=== PATIENT | female | born 1965 | race Caucasian/White ===

== ENCOUNTER → 2016-07-22 | Outpatient (CLI) | payer MEDICAID | LOC: RAD 07:53 | PROVIDERS: ATTEND Internal Medicine | DX: C56.2 Malignant neoplasm of left ovary (principal); C78.7 Secondary malignant neoplasm of liver and intrahepatic bile duct | CPT/HCPCS: 71260; 74177 ==

== ENCOUNTER 2016-08-06 08:50 | Day surgery (SDC) | payer MEDICAID ==
[~2016-08-06 08:50] MED LIST: BACITRACIN INJ 50,000 UNIT VIAL MC PRN
[2016-08-06] MEDS ORDERED: BACITRACIN INJ 50,000 UNIT VIAL MC ONE (09:00)
[2016-08-06] MEDS ORDERED: CEFAZOLIN SODIUM 1 GM in DEXTROSE 5%-WATER 50 ML IV PRN (09:04)
[2016-08-06] MEDS ORDERED: DEXTROSE 5%-1/2 NORMAL SALINE 1,000 ML IV PRN (09:05)
[2016-08-06 09:26] LABS: ABSOLUTE BASOPHILS # (AUTO) 0.1 10^3/uL (0.0-0.2); ABSOLUTE EOSINOPHILS # (AUTO) 0.1 10^3/uL (0.0-0.6); ABSOLUTE MONOCYTES (AUTO) 0.7 10^3/uL (0.1-1.4); ABSOLUTE NEUT (AUTO) 8.6 10^3/uL (1.7-8.2); BASOPHILS % (AUTO) 0.8 % (0-2); EOSINOPHILS % (AUTO) 1.3 % (0-6); HEMATOCRIT 36.5 % (36.0-47.0); HEMOGLOBIN 12.2 g/dL (12.0-15.5); HGB HCT DIFFERENCE 0.1; LYMPHOCYTES % (AUTO) 9.7 % (13-45); MEAN CORPUSCULAR HEMOGLOBIN 29.5 pg (27.0-33.4); MEAN CORPUSCULAR HGB CONC 33.4 g/dL (32.0-36.0); MEAN CORPUSCULAR VOLUME 88 fl (80-97); MONOCYTES % (AUTO) 6.9 % (3-13); RED BLOOD COUNT 4.13 10^6/uL (3.72-5.28); RED CELL DISTRIBUTION WIDTH 14.3 % (11.5-14.0); SEGMENTED NEUTROPHILS % (AUTO) 81.3 % (42-78); WHITE BLOOD COUNT 10.6 10^3/uL (4.0-10.5)
[2016-08-06] MEDS ORDERED: LIDOCAINE 0.5% INJ-PF (5 MG/ML) 50 ML SDV ONE (09:56)
[2016-08-06] MEDS ORDERED: FENTANYL CITRATE INJ/PF 100 MCG/2 ML AMPUL ONE (10:00)
[2016-08-06] MEDS ORDERED: MIDAZOLAM 2 MG/2 ML INJ ONE (10:00)
[2016-08-06] MEDS ORDERED: CLINDAMYCIN 300 MG/D5W RTU 300 MG/50 ML RTUPB IV ONE (10:30)
--- NOTE | 2016-08-06 11:16 | PDOC DISCHARGE SUMMARY ---
Discharge Summary (SDC) - Discharge Final Diagnosis: Ovarian cancer Date of Surgery: 08/06/16 Discharge Date: 08/06/16 Condition: Good Treatment or Instructions: #1 activities within moderation encouraged. #2 follow up in my office by appointment in about 1 week. Call for appointment. #3 the wounds covered clean and dry until office visit. #4 hold off on school/work until evaluation in office. #5 may shower in 48 hours, keep operated area as dry as possible. #6 discharge from ambulatory when ASU criteria met. #7 medications per medication reconciliation sheet. #8 Percocet by prescription.. Also may have one Percocet up to every 2 hours when necessary for pain greater than 4 out of 10 while in the ASU Prescriptions: Oxycodone HCl/Acetaminophen [Percocet 5-325 mg Tablet] 1 tab PO ASDIR PRN #15 tab PRN Reason: Discharge Diet: As Tolerated Respiratory Treatments at Home: Deep Breathing/Coughing Discharge Activity: Activity As Tolerated Report the Following to Your Physician Immediately: Unusual Bleeding
--- NOTE | 2016-08-06 11:19 | Operative Report ---
Operative Report DATE OF SURGERY: 08/06/16 PREOPERATIVE DIAGNOSIS: Ovarian cancer POSTOPERATIVE DIAGNOSIS: Ovarian cancer OPERATION: #1 ultrasound evaluation of the right internal jugular vein. #2 insertion of single-lumen Port-A-Cath via real-time access in the right internal jugular vein. #3 angiogram and interpretation. SURGEON: JESSA STODDARD AUTOMOTIVE PARTS MANAGER: none ANESTHESIA: Moderate Sedation TISSUE REMOVED OR ALTERED: Not applicable. COMPLICATIONS: None ESTIMATED BLOOD LOSS: 5 mL. INTRAOPERATIVE FINDINGS: Of a satisfactory right internal jugular vein, about 1.5 cm in diameter. Safe access obtained. The position of the catheter with the tip just in the upper right atrium. Easy egress of blood and ingress of heparinized solution. Smooth flow of contrast through the right atrium, ventricle and pulmonary outflow tract. PROCEDURE: After obtaining informed consent, the patient was taken to the [facility] and positioned supine. The [right] neck and chest were prepared with chlorhexidine and draped out with sterile linen. After the " universal timeout", in which it was verified that the patient continued to receive antibiotic, the procedure commenced. A steriley sheathed ultrasound probe was used to evaluate the [ right] internal jugular vein. Local anesthesia was infiltrated adjacent to the probe. Access into the [right] internal jugular vein was obtained using a micropuncture needle, followed by micropuncture wire and then a micropuncture catheter. This was followed by introduction of a 0.035 guidewire the tip of which was placed down into the inferior vena cava . The port sites was marked , locally anesthetized and incision made. Dissection now proceeded to the deep subcutaneous subcutaneous tissues so that a pocket for the port was made. Meticulous hemostasis was secured and the catheter was tunneled between the 2 incisions. Proximally, the catheter was now positioned using a peel-away sheath. Distally the catheter was tailored to an appropriate length and then mated to the port using the contained fixating device. The port was now placed in the pocket and the catheter optimally positioned. The port was accessed with a De La O needle and an angiogram done under digital subtraction. The findings as dictated. With adequate and satisfactory positioning, both lumens of the chamber were irrigated with heparinized solution. The wounds were now closed using interrupted 3-0 PDS to the subcutaneous tissues and a continuous subcuticular suture of 4-0 Monocryl to the skin. These are reinforced with Steri-Strips over benzoin and then dressings applied. Time: 0.3 Minute. Dose: 14 m Gy Contrast: 5 mls. Isovue 300. Copies of the dictated operative report for Dr. Jessa Hall MD.
[2016-08-06 12:42] VITALS: BP 118/60
--- NOTE | 2016-08-06 23:57 | EKG REPORT ---
SEVERITY:- NORMAL ECG - SINUS RHYTHM : Confirmed by: Pankaj Redmond 06-Aug-2016 23:56:50
== END 2016-08-06 13:05 | disposition home or self-care (01) ==
LOC: CCL 08:50
PROVIDERS: ATTEND Surgery
PROC: 05HM33Z Insertion of Infusion Device into Right Internal Jugular Vein, Percutaneous Approach (ICD-10-PCS; principal; 2016-08-06)
DX: C56.2 Malignant neoplasm of left ovary (principal); F17.210 Nicotine dependence, cigarettes, uncomplicated; Z88.0 Allergy status to penicillin; Z88.5 Allergy status to narcotic agent
CPT/HCPCS: 36415; 85025; 36561; 76937; 77001; 71010; 93005; 93010; Q9967; J2250; J3490 ×3; J3010; J1644

== ENCOUNTER → 2016-10-08 | Outpatient (CLI) | payer MEDICAID | LOC: RAD 07:30 | PROVIDERS: ATTEND Internal Medicine | DX: C56.2 Malignant neoplasm of left ovary (principal) | CPT/HCPCS: 71260; 74177; 82565 ==

== ENCOUNTER → 2016-12-09 | Outpatient (CLI) | payer MEDICAID ==
--- NOTE | 2016-12-09 10:01 | RADIOLOGY REPORT (SQ) ---
EXAM DESCRIPTION: CT CHEST WITH COMPLETED DATE/TIME: 12/09/2016 8:35 am REASON FOR STUDY: OVARIAN CA (C56.2) C56.2 MALIGNANT NEOPLASM OF LEFT OVARY COMPARISON: 10/08/2016 and 07/22/2016. TECHNIQUE: CT scan of the chest performed using helical scanning technique with dynamic intravenous contrast injection. Images reviewed with lung, soft tissue and bone windows. Reconstructed coronal and sagittal MPR images reviewed. All images stored on PACS. All CT scanners at this facility use dose modulation, iterative reconstruction, and/or weight based d osing when appropriate to reduce radiation dose to as low as reasonably achievable (ALARA). [facility]: Dose Right [facility]: CareDose [facility]: Dose Right [facility]: Teradose 4D [facility]: Snapsheet CONTRAST TYPE AND DOSE: 72 Isovue 370- low osmolar. RENAL FUNCTION: Creatinine 0.8. RADIATION DOSE: . LIMITATIONS: None. FINDINGS: LUNGS AND PLEURA: No opacities, nodules, masses. No pneumothorax. No effusions. HILAR AND MEDIASTINAL STRUCTURES: Continued improvement in the mediastinal lymph nodes. Prevascular lymph node currently measures 4 x 10 mm with prior measurements of 5 x 15 mm. Paratracheal lymph nod e currently measures 9 mm with prior measurement of 15 mm. Subcarinal lymph node currently measures 7 x 12 mm with prior measurements of 9 x 22 mm. Previously seen the anterior epicardial lymph node n o longer present. HEART AND VASCULAR STRUCTURES: No aneurysm or dissection. No central pulmonary emboli. No pericardi al effusion. HARDWARE: Vascular access port. UPPER ABDOMEN: No significant findings. Limited exam. THYROID AND OTHER SOFT TISSUES: No masses. No adenopathy. BONES: No significant finding. OTHER: No other significant finding. IMPRESSION: IMPROVED APPEARANCE OF THE CHEST WITH DECREASE IN THE MEDIASTINAL LYMPH NODES. TECHNICAL DOCUMENTATION: JOB ID: [id number] Quality ID # [id number]: Final reports with documentation of one or more dose reduction techniques (e.g., Au tomated exposure control, adjustment of the mA and/or kV according to patient size, use of iterative reconstruction technique) 2010 [employer]- All Rights Reserved
--- NOTE | 2016-12-09 10:16 | RADIOLOGY REPORT (SQ) ---
EXAM DESCRIPTION: CT ABD/PELVIS WITH IV ONLY COMPLETED DATE/TIME: 12/09/2016 8:35 am REASON FOR STUDY: OVARIAN CA (C56.2) C56.2 MALIGNANT NEOPLASM OF LEFT OVARY COMPARISON: 10/08/2016 and 07/22/2016. TECHNIQUE: CT scan of the abdomen and pelvis performed using helical scanning technique with dynamic intravenous contrast injection. No oral contrast. Images reviewed with lung, soft tissue, and bone windows. Reconstructed coronal and sagittal MPR images reviewed. Delayed images for evaluation of the urinary system also acquired. All images stored on PACS. All CT scanners at this facility use dose modulation, iterative reconstruction, and/or weight based d osing when appropriate to reduce radiation dose to as low as reasonably achievable (ALARA). [facility]: Dose Right [facility]: CareDose [facility]: Dose Right [facility]: Teradose 4D [facility]: [employer] CONTRAST TYPE AND DOSE: contrast/concentration: Isovue 370.00 mg/ml; Total Contrast Delivered: 72.0 ml; Total Saline Delivered: 66.1 ml 72 Isovue 370- low osmolar. RENAL FUNCTION: Creatinine 0.8. RADIATION DOSE: Up-to-date CT equipment and radiation dose reduction techniques were employed. CTDIv ol: 4.8 - 10.2 mGy. DLP: 931 mGy-cm.. LIMITATIONS: None. FINDINGS: LOWER CHEST: No significant findings. No nodules or infiltrates. LIVER: Normal size. Stable cyst in the left lobe. Ill-defined lesions in the right lobe generally u nchanged. Current measurements are 9 mm and 1.8 cm, essentially unchanged. No dilated ducts. SPLEEN: Normal size. No focal lesions. PANCREAS: No masses. No significant calcifications. No adjacent inflammation or peripancreatic fluid collections. Pancreatic duct not dilated. GALLBLADDER: No identified stones by CT criteria. No inflammatory changes to suggest cholecystitis. ADRENAL GLANDS: No significant masses or asymmetry. RIGHT KIDNEY AND URETER: No solid masses. No significant calcifications. No hydronephrosis or hyd roureter. LEFT KIDNEY AND URETER: No solid masses. No significant calcifications. No hydronephrosis or hydr oureter. AORTA AND VESSELS: No aneurysm. No dissection. Renal arteries, SMA, celiac without stenosis. RETROPERITONEUM: No retroperitoneal adenopathy, hemorrhage or masses. BOWEL AND PERITONEAL CAVITY: No masses or inflammatory changes. Minimal subhepatic fluid collection currently smaller. No free fluid or peritoneal masses. APPENDIX: Normal. PELVIS: No mass or free fluid. Normal bladder. ABDOMINAL WALL: No masses. Stable umbilical hernia containing a loop of bowel. BONES: No significant or acute findings. OTHER: No other significant finding. IMPRESSION: 1. STABLE HEPATIC LESIONS. NO PROGRESSION AND NO NEW LESIONS. MINIMAL SUBHEPATIC FLUID COLLECTION I S CURRENTLY SMALLER. 2. UMBILICAL HERNIA WITH A LOOP OF BOWEL, UNCHANGED. NO OBSTRUCTIVE FINDINGS. 3. NO OTHER SIGNIFICANT OR ACUTE FINDING IN THE ABDOMEN OR PELVIS ON CT SCAN WITH IV CONTRAST. TECHNICAL DOCUMENTATION: JOB ID: [id number] Quality ID # 436: Final reports with documentation of one or more dose reduction techniques (e.g., Au tomated exposure control, adjustment of the mA and/or kV according to patient size, use of iterative reconstruction technique) 2010 [employer]- All Rights Reserved
== END ==
LOC: RAD 07:52
PROVIDERS: ATTEND Internal Medicine
DX: C56.2 Malignant neoplasm of left ovary (principal); K76.9 Liver disease, unspecified; K42.9 Umbilical hernia without obstruction or gangrene
CPT/HCPCS: 71260; 74177; 82565

== ENCOUNTER → 2017-03-03 | Outpatient (CLI) | payer MEDICAID ==
--- NOTE | 2017-03-03 11:20 | RADIOLOGY REPORT (SQ) ---
EXAM DESCRIPTION: CT CHEST WITH COMPLETED DATE/TIME: 03/03/2017 10:14 am REASON FOR STUDY: OVARIAN CA (C56.2) C56.2 MALIGNANT NEOPLASM OF LEFT OVARY COMPARISON: None. TECHNIQUE: CT scan of the chest performed using helical scanning technique with dynamic intravenous contrast injection. Images reviewed with lung, soft tissue and bone windows. Reconstructed coronal and sagittal MPR images reviewed. All images stored on PACS. All CT scanners at this facility use dose modulation, iterative reconstruction, and/or weight based d osing when appropriate to reduce radiation dose to as low as reasonably achievable (ALARA). [facility]: Dose Right [facility]: CareDose [facility]: Dose Right [facility]: Teradose 4D [facility]: KLab CONTRAST TYPE AND DOSE: contrast/concentration: Isovue 370.00 mg/ml; Total Contrast Delivered: 70.0 ml; Total Saline Delivered: 66.0 ml RENAL FUNCTION: BUN 12, creatinine 0.7 RADIATION DOSE: . LIMITATIONS: None. FINDINGS: LUNGS AND PLEURA: No consolidation or effusions. There are 2 small subpleural nodules on the right. These are measured at 3.1 an 4 mm respectively. These are best demonstrated on image 53 /125 and image 27/125. There is a 4.4 mm parenchymal nodule on image 60/125. These are new from dhaval or study. There is a single parenchymal nodule in the left lower lobe. This is new as well and sundar ures 5.6 mm in diameter. This is best demonstrated on image 61/125. These are nonspecific but in th is clinical metastatic disease cannot be excluded. HILAR AND MEDIASTINAL STRUCTURES: Small prevascular and pre tracheal lymph node is again noted but un changed. These are not pathologic based on size criteria. HEART AND VASCULAR STRUCTURES: No aneurysm or dissection. No central pulmonary emboli. No pericardi al effusion. HARDWARE: None in the chest. UPPER ABDOMEN: No significant findings. Limited exam. THYROID AND OTHER SOFT TISSUES: No masses. No adenopathy. BONES: No significant finding. OTHER: No other significant finding. IMPRESSION: Small bilateral parenchymal nodules as described. Metastatic disease cannot be excluded . The largest nodules on the left and measures 5.6 mm in diameter. TECHNICAL DOCUMENTATION: JOB ID: [id number] Quality ID # 436: Final reports with documentation of one or more dose reduction techniques (e.g., Au tomated exposure control, adjustment of the mA and/or kV according to patient size, use of iterative reconstruction technique) 2010 [employer]- All Rights Reserved
--- NOTE | 2017-03-03 11:26 | RADIOLOGY REPORT (SQ) ---
EXAM DESCRIPTION: CT ABD/PELVIS WITH IV ORAL COMPLETED DATE/TIME: 03/03/2017 10:14 am REASON FOR STUDY: OVARIAN CA (C56.2) C56.2 MALIGNANT NEOPLASM OF LEFT OVARY COMPARISON: 12/09/2016 TECHNIQUE: CT scan of the abdomen and pelvis performed using helical scanning technique with dynamic intravenous contrast injection. No oral contrast. Images reviewed with lung, soft tissue, and bone windows. Reconstructed coronal and sagittal MPR images reviewed. Delayed images for evaluation of the urinary system also acquired. All images stored on PACS. All CT scanners at this facility use dose modulation, iterative reconstruction, and/or weight based d osing when appropriate to reduce radiation dose to as low as reasonably achievable (ALARA). [facility]: Dose Right [facility]: CareDose [facility]: Dose Right [facility]: Teradose 4D [facility]: [employer] CONTRAST TYPE AND DOSE: 70 mL Isovue 370- low osmolar. RENAL FUNCTION: BUN 12, creatinine 0.7 RADIATION DOSE: Up-to-date CT equipment and radiation dose reduction techniques were employed. CTDIv ol: 5.1 - 5.3 mGy. DLP: 723 mGy-cm.. LIMITATIONS: None. FINDINGS: LOWER CHEST: Please see chest CT report for further discussion. LIVER: There is a 5.6 cm lesion in the right lower liver consistent with metastatic disease. This is increased in size. Smaller hypoattenuating nodules are unchanged. A small amount of subhepatic flu id is again noted. SPLEEN: Normal size. No focal lesions. PANCREAS: No masses. No significant calcifications. No adjacent inflammation or peripancreatic fluid collections. Pancreatic duct not dilated. GALLBLADDER: No identified stones by CT criteria. No inflammatory changes to suggest cholecystitis. ADRENAL GLANDS: No significant masses or asymmetry. RIGHT KIDNEY AND URETER: No solid masses. No significant calcifications. No hydronephrosis or hyd roureter. LEFT KIDNEY AND URETER: No solid masses. No significant calcifications. No hydronephrosis or hydr oureter. AORTA AND VESSELS: No aneurysm. No dissection. Renal arteries, SMA, celiac without stenosis. RETROPERITONEUM: No retroperitoneal adenopathy, hemorrhage or masses. BOWEL AND PERITONEAL CAVITY: No masses or inflammatory changes. No free fluid or peritoneal masses. APPENDIX: Normal. PELVIS: No mass. No free fluid. Normal bladder. ABDOMINAL WALL: There is an umbilical hernia containing small bowel. No obstruction. BONES: Stable in appearance. No obvious metastatic disease. OTHER: No other significant finding. IMPRESSION: The hepatic lesion in the right lobe of the liver has increased in size and now measures 5.6 cm. Small amount of subhepatic fluid remains. No other significant interval change. TECHNICAL DOCUMENTATION: JOB ID: [id number] Quality ID # 436: Final reports with documentation of one or more dose reduction techniques (e.g., Au tomated exposure control, adjustment of the mA and/or kV according to patient size, use of iterative reconstruction technique) 2010 [employer]- All Rights Reserved
== END ==
LOC: RAD 09:50
PROVIDERS: ATTEND Internal Medicine
DX: C56.2 Malignant neoplasm of left ovary (principal)
CPT/HCPCS: 71260; 74177

== ENCOUNTER → 2017-07-16 | Outpatient (CLI) | payer MEDICAID ==
--- NOTE | 2017-07-16 13:50 | RADIOLOGY REPORT (SQ) ---
EXAM DESCRIPTION: CT CHEST WITH; CT ABD/PELVIS WITH IV ORAL COMPLETED DATE/TIME: 07/16/2017 10:08 am REASON FOR STUDY: OVARIAN CA (C56.2) C56.2 MALIGNANT NEOPLASM OF LEFT OVARY COMPARISON: CT CHEST ABDOMEN PELVIS 03/03/2017, 12/09/2016, 10/08/2016, 07/22/2016 CONTRAST TYPE AND DOSE: contrast/concentration: Isovue 370.00 mg/ml; Total Contrast Delivered: 69.0 ml; Total Saline Delivered: 65.0 ml RENAL FUNCTION: Creatinine 0.9 TECHNIQUE: CT scan of the chest performed using helical scanning technique with dynamic intravenous contrast injection. Images reviewed with lung, soft tissue and bone windows. Reconstructed coronal a nd sagittal MPR images reviewed. All images stored on PACS. CT scan of the abdomen and pelvis performed with intravenous and without oral contrastusing helical s lucas technique with dynamic intravenous contrast injection. Images reviewed with lung, soft tissu e and bone windows. Reconstructed coronal and sagittal MPR images reviewed. Delayed images for eval uation of the urinary system also acquired and evaluated. All images stored on PACS. All CT scanners at this facility use dose modulation, iterative reconstruction, and/or weight based d osing when appropriate to reduce radiation dose to as low as reasonably achievable (ALARA). [facility]: Dose Right [facility]: CareDose [facility]: Dose Right [facility]: Teradose 4D [facility]: [employer] RADIATION DOSE: CT Rad equipment meets quality standard of care and radiation dose reduction techniq ues were employed. CTDIvol: 4.6 - 5.7 mGy. DLP: 767 mGy-cm. . LIMITATIONS: None. FINDINGS: CHEST: LUNGS AND PLEURA: A 2.1 x 1.3 cm nodule is present in the left posterior costophrenic sulcus. There is trace left pleural effusion, new compared to previous exams. Tiny noncalcified granulomas are seen in the subpleural surface right upper and lower lobe unchanged. Calcified granuloma left lower lobe unchanged. No right pleural effusion. No right or left pneumo thorax HILAR AND MEDIASTINAL STRUCTURES: No identified masses or abnormal nodes. HEART AND VASCULAR STRUCTURES: No aneurysm or dissection. No central pulmonary emboli. No pericardi al effusion. HARDWARE: Right upper extremity permanent central line tip in the superior vena cava THYROID AND OTHER SOFT TISSUES: No masses. No adenopathy. BONES: No significant finding. OTHER: No other significant finding. ABDOMEN AND PELVIS: LIVER: A 15 x 10 cm metastatic lesion is present in the posterior right lobe liver (was 5.[address] diameter on 03/03/2017). Multiple other new smaller liver lesions are present scattered throughout the parenchymal worrisome for metastatic disease. Stable 12 mm hepatic cyst left lobe liver image 2 9. SPLEEN: Normal size. No focal lesions. PANCREAS: No masses. No significant calcifications. No adjacent inflammation or peripancreatic fluid collections. Pancreatic duct not dilated. GALLBLADDER: Contracted, with gallstones. ADRENAL GLANDS: No significant masses or asymmetry. RIGHT KIDNEY AND URETER: No solid masses. No significant calcification. No hydronephrosis or hydroure ter. LEFT KIDNEY AND URETER: No solid masses. No significant calcification. No hydronephrosis or hydrouret er. AORTA AND VESSELS: No aneurysm. No dissection. Renal arteries, SMA, celiac without stenosis. RETROPERITONEUM: No retroperitoneal adenopathy, hemorrhage or masses. BOWEL AND PERITONEAL CAVITY: Interval development of a moderate amount of ascites throughout the abdo men and pelvis. No CT evidence of bowel obstruction. APPENDIX: Normal. ABDOMINAL WALL: No masses. No hernias. BONES: No significant or acute findings. PELVIS: Post hysterectomy. Surgical clips at the vaginal cuff. Large amount of free pelvic fluid. Surgical clips from old lymph node dissection. No pelvic adenopathy IMPRESSION: New nodule in the left posterior costophrenic sulcus with trace pleural effusion worriso me for malignant involvement Increase in size and number of liver lesions Increase in ascites, moderate ascites is now present in the abdomen and pelvis TECHNICAL DOCUMENTATION: JOB ID: [id number] Quality ID # 436: Final reports with documentation of one or more dose reduction techniques (e.g., Au tomated exposure control, adjustment of the mA and/or kV according to patient size, use of iterative reconstruction technique) 2010 [employer]- All Rights Reserved
== END ==
LOC: RAD 09:23
PROVIDERS: ATTEND Internal Medicine
DX: C56.2 Malignant neoplasm of left ovary (principal)
CPT/HCPCS: 71260; 74177

== ENCOUNTER 2017-07-18 17:35 | Inpatient (IN) | payer MEDICAID ==
--- NOTE | 2017-07-18 18:21 | ER Document Report ---
ED Medical Screen (RME) - General Chief Complaint: Abdominal Swelling Stated Complaint: SWELLING IN STOMACH Time Seen by Provider: 07/18/17 18:15 Notes: 51-year-old female patient with ovarian cancer with liver metastases. On chemo. CT scan done 2 days ago showed new metastases to the liver with moderate ascites. She reports the swelling is even worse today than 2 days ago and is making it difficult to get up and down and eat. I have greeted and performed a rapid initial assessment of this patient. A comprehensive ED assessment and evaluation of the patient, analysis of test results and completion of the medical decision making process will be conducted by additional ED providers. TRAVEL OUTSIDE OF THE [place] IN LAST 30 DAYS: No - Related Data Allergies/Adverse Reactions: morphine Adverse Reaction (Verified 07/18/17 17:36) Dizziness Penicillins Adverse Reaction (Verified 07/18/17 17:36) Edema Past Medical History - Social History Chew tobacco use (# tins/day): No Frequency of alcohol use: None Drug Abuse: None - Past Medical History Cardiac Medical History: Denies: Hx Coronary Artery Disease, Hx Heart Attack, Hx Hypertension Pulmonary Medical History: Denies: Hx Asthma, Hx Bronchitis, Hx COPD, Hx Pneumonia Neurological Medical History: Denies: Hx Cerebrovascular Accident, Hx Seizures Renal/ Medical History: Denies: Hx Peritoneal Dialysis Musculoskeltal Medical History: Reports Hx Arthritis - BILAT KNEES Past Surgical History: Reports: Hx Section - 4, Hx Hysterectomy, Hx Orthopedic Surgery - R knee - Immunizations Hx Diphtheria, Pertussis, Tetanus Vaccination: Yes Physical Exam - Vital signs Vitals: Temp Pulse BP Pulse Ox 98.6 F 98 135/91 H 99 07/18/17 17:56 07/18/17 17:56 07/18/17 17:56 07/18/17 17:56 Course - Vital Signs Vital signs: Temp Pulse Resp BP Pulse Ox 98.6 F 98 18 135/91 H 99 07/18/17 17:56 07/18/17 17:56 07/18/17 18:03 07/18/17 17:56 07/18/17 17:56
[2017-07-18 18:51] LABS: ABSOLUTE BASOPHILS # (AUTO) 0.1 10^3/uL (0.0-0.2); ABSOLUTE EOSINOPHILS # (AUTO) 0.1 10^3/uL (0.0-0.6); ABSOLUTE LYMPHOCYTES (AUTO) 1.4 10^3/uL (0.5-4.7); ABSOLUTE NEUT (AUTO) 7.1 10^3/uL (1.7-8.2); BASOPHILS % (AUTO) 1.1 % (0-2); EOSINOPHILS % (AUTO) 0.7 % (0-6); HEMATOCRIT 39.4 % (36.0-47.0); HEMOGLOBIN 13.5 g/dL (12.0-15.5); LYMPHOCYTES % (AUTO) 14.5 % (13-45); MEAN CORPUSCULAR HEMOGLOBIN 30.4 pg (27.0-33.4); MEAN CORPUSCULAR HGB CONC 34.2 g/dL (32.0-36.0); MEAN CORPUSCULAR VOLUME 89 fl (80-97); MONOCYTES % (AUTO) 10.1 % (3-13); PLATELET COUNT 216 10^3/uL (150-450); RED BLOOD COUNT 4.43 10^6/uL (3.72-5.28); RED CELL DISTRIBUTION WIDTH 17.4 % (11.5-14.0); SEGMENTED NEUTROPHILS % (AUTO) 73.6 % (42-78); TOTAL CELLS COUNTED % (AUTO) 100 %; WHITE BLOOD COUNT 9.6 10^3/uL (4.0-10.5)
[2017-07-18 18:52] LABS: APPEARANCE,URINE SLIGHTLY-CLOUDY; BILIRUBIN,URINE NEGATIVE (NEGATIVE); COLOR,URINE YELLOW; GLUCOSE, URINE NEGATIVE (NEGATIVE); KETONES,URINE NEGATIVE (NEGATIVE); LEUKOCYTE ESTERASE,URINE MODERATE (NEGATIVE); NITRITE,URINE NEGATIVE (NEGATIVE); PROTEIN,URINE 30 mg/dL (NEGATIVE); URINE SPECIFIC GRAVITY 1.019; UROBILINOGEN,URINE NEGATIVE mg/dL (<2.0)
[2017-07-18 19:07] LABS: INTERNATIONAL RATION (INR) 0.88; PROTHROMBIN TIME 12.6 SEC (11.4-15.4)
[2017-07-18 19:13] LABS: ALANINE AMINOTRANSFERASE 38 U/L (9-52); ALBUMIN 3.2 g/dL (3.5-5.0); ALKALINE PHOSPHATASE 315 U/L (38-126); ANION GAP 11 (5-19); ASPARTATE AMINO TRANSFERASE 88 U/L (14-36); BILIRUBIN,DIRECT 0.4 mg/dL (0.0-0.4); BILIRUBIN,TOTAL 0.4 mg/dL (0.2-1.3); BLOOD UREA NITROGEN 18 mg/dL (7-20); CALCIUM 8.9 mg/dL (8.4-10.2); CARBON DIOXIDE 24 mmol/L (22-30); CHLORIDE 105 mmol/L (98-107); GLUCOSE 100 mg/dL (75-110); POTASSIUM 4.2 mmol/L (3.6-5.0); SODIUM 139.5 mmol/L (137-145); TOTAL PROTEIN 6.2 g/dL (6.3-8.2)
[2017-07-18] MEDS ORDERED: HYDROMORPHONE HCL 2 MG TABLET PO ONE (19:45)
--- NOTE | 2017-07-18 19:45 | ER Document Report ---
ED GI/ - General Chief Complaint: Abdominal Swelling Stated Complaint: SWELLING IN STOMACH Time Seen by Provider: 07/18/17 18:15 Mode of Arrival: Ambulatory Information source: Patient Notes: Patient presents complaining of right upper quadrant abdominal pain for the past 2 days. Patient denies any nausea vomiting or diarrhea. Patient denies any fever or cough. Patient does have a history of ovarian cancer with liver metastasis. Patient complains of abdominal distention for the past few weeks but states that it has increased recently and that it is causing her to have a decrease in her appetite. Patient states she has had been having normal bowel movements TRAVEL OUTSIDE OF THE [place] IN LAST 30 DAYS: No - HPI Patient complains to provider of: Abdominal pain. No: Diarrhea, Vomiting Onset: Other - Several weeks, worse 2 days Timing/Duration: Worse Quality of pain: Sharp Pain Level: 3 Location: RUQ Vaginal bleeding (Compared to normal period): None Associated symptoms: Loss of appetite. denies: Constipation, Diarrhea, Dysuria , Fever, Nausea, Urinary hesitancy, Urinary frequency, Urinary retention, Vaginal discharge, Vomiting Exacerbated by: Denies Relieved by: Denies Similar symptoms previously: No - Related Data Allergies/Adverse Reactions: morphine Adverse Reaction (Verified 07/18/17 17:36) Dizziness Penicillins Adverse Reaction (Verified 07/18/17 17:36) Edema Past Medical History - General Information source: Patient - Social History Smoking Status: Former Smoker Chew tobacco use (# tins/day): No Frequency of alcohol use: None Drug Abuse: None Occupation: None Family History: Reviewed & Not Pertinent Patient has suicidal ideation: No Patient has homicidal ideation: No - Past Medical History Cardiac Medical History: Denies: Hx Coronary Artery Disease, Hx Heart Attack, Hx Hypertension Pulmonary Medical History: Denies: Hx Asthma, Hx Bronchitis, Hx COPD, Hx Pneumonia Neurological Medical History: Denies: Hx Cerebrovascular Accident, Hx Seizures Renal/ Medical History: Denies: Hx Peritoneal Dialysis Malignancy Medical History: Reports: Hx Ovarian Cancer Musculoskeltal Medical History: Reports Hx Arthritis - BILAT KNEES Past Surgical History: Reports: Hx Section - 4, Hx Hysterectomy, Hx Orthopedic Surgery - R knee - Immunizations Hx Diphtheria, Pertussis, Tetanus Vaccination: Yes Review of Systems - Review of Systems Constitutional: No symptoms reported. denies: Fever, Recent illness EENT: No symptoms reported Cardiovascular: No symptoms reported. denies: Chest pain Respiratory: No symptoms reported. denies: Cough, Short of breath Gastrointestinal: Abdominal pain, Poor appetite. denies: Diarrhea, Nausea, Vomiting Genitourinary: No symptoms reported. denies: Dysuria, Flank pain Female Genitourinary: No symptoms reported Musculoskeletal: No symptoms reported. denies: Back pain Skin: No symptoms reported Hematologic/Lymphatic: No symptoms reported Neurological/Psychological: No symptoms reported Physical Exam - Vital signs Vitals: Temp Pulse BP Pulse Ox 98.6 F 98 135/91 H 99 07/18/17 17:56 07/18/17 17:56 07/18/17 17:56 07/18/17 17:56 - General General appearance: Appears well, Alert In distress: None - HEENT Head: Normocephalic, Atraumatic Eyes: Normal Conjunctiva: Normal Nasal: Normal Mouth/Lips: Normal Mucous membranes: Normal Neck: Normal - Respiratory Respiratory status: No respiratory distress Chest status: Nontender Breath sounds: Normal. No: Rales, Rhonchi, Stridor, Wheezing Chest palpation: Normal - Cardiovascular Rhythm: Regular Heart sounds: S1 appreciated, S2 appreciated Murmur: No - Abdominal Distension: Distended Bowel sounds: Normal Tenderness: Tender - RUQ Organomegaly: No organomegaly - Back Back: Normal, Nontender. No: CVA tenderness - Extremities General upper extremity: Normal inspection, Normal ROM. No: Edema General lower extremity: Normal inspection, Normal ROM. No: Edema - Neurological Neuro grossly intact: Yes Cognition: Normal Orientation: AAOx4 [place] Coma Scale Eye Opening: Spontaneous [place] Coma Scale Verbal: Oriented [place] Coma Scale Motor: Obeys Commands Dominick Coma Scale Total: 15 - Psychological Associated symptoms: Normal affect, Normal mood - Skin Skin Temperature: Warm Skin Moisture: Dry Skin Color: Normal Course - Re-evaluation Re-evalutation: 07/18/17 20:[address] Usman blank patient presentation and diagnostic evaluation. 07/18/17 20:[address] Sheridan blank patient presentation. Agrees with intended plan of care to manage patient's pain symptoms and have her to follow-up with Dr. Patel this week for recheck. Does recommend managing her pain symptoms but only if she does not have evidence of a bowel obstruction first. Discussed plan of care with patient. Patient states that she is unable to eat because of her abdominal distention and states that she has had a change in her bowel movements although has had daily bowel movements. Patient states that up until now she has not had any abdominal tenderness with her cancer. Discussed plan with patient to order x-ray imaging to confirm the patient does not have an obstruction. Will give her pain medication while she is here and plan for pain management with discharge. 07/18/17 22:53 Dr Cortez advised of patient's status per Dr. Russell as Dr. Cortez was calling to see if there were any potential surgical cases prior to letting the OR team leave. 07/18/17 23:46 Dr. Cortez consulted who agrees to evaluate patient. 07/19/17 01:13 Dr. Cortez evaluated patient agrees to admit her to his services, advises placing an NG tube. - Vital Signs Vital signs: Temp Pulse Resp BP Pulse Ox 98.1 F 76 16 126/65 H 95 07/19/17 04:05 07/19/17 04:05 07/19/17 04:05 07/19/17 04:05 07/19/17 04:05 - Laboratory Result Diagrams: 07/18/17 18:33 07/18/17 18:33 Laboratory results interpreted by me: 07/18/17 07/18/17 07/18/17 18:33 18:33 18:33 RDW 17.4 H AST 88 H Alkaline Phosphatase 315 H Total Protein 6.2 L Albumin 3.2 L Urine Protein 30 H Ur Leukocyte Esterase MODERATE H 07/19/17 07:36 Labs- Entire Visit 07/18/17 07/18/17 07/18/17 18:33 18:33 18:33 WBC 9.6 RBC 4.43 Hgb 13.5 Hct 39.4 MCV 89 MCH 30.4 MCHC 34.2 RDW 17.4 H Plt Count 216 Seg Neutrophils % 73.6 Lymphocytes % 14.5 Monocytes % 10.1 Eosinophils % 0.7 Basophils % 1.1 Absolute Neutrophils 7.1 Absolute Lymphocytes 1.4 Absolute Monocytes 1.0 Absolute Eosinophils 0.1 Absolute Basophils 0.1 PT 12.6 INR 0.88 Sodium 139.5 Potassium 4.2 Chloride 105 Carbon Dioxide 24 Anion Gap 11 BUN 18 Creatinine 0.88 Est GFR ( Amer) > 60 Est GFR (Non-Af Amer) > 60 Glucose 100 Calcium 8.9 Total Bilirubin 0.4 Direct Bilirubin 0.4 Neonat Total Bilirubin Not Reportable Neonat Direct Bilirubin Not Reportable Neonat Indirect Bili Not Reportable AST 88 H ALT 38 Alkaline Phosphatase 315 H Total Protein 6.2 L Albumin 3.2 L Urine Color Urine Appearance Urine pH Ur Specific [place] Urine Protein Urine Glucose (UA) Urine Ketones Urine Blood Urine Nitrite Urine Bilirubin Urine Urobilinogen Ur Leukocyte Esterase Urine WBC (Auto) Urine RBC (Auto) Squamous Epi Cells Auto Urine Mucus (Auto) Urine Ascorbic Acid 07/18/17 18:33 WBC RBC Hgb Hct MCV MCH MCHC RDW Plt Count Seg Neutrophils % Lymphocytes % Monocytes % Eosinophils % Basophils % Absolute Neutrophils Absolute Lymphocytes Absolute Monocytes Absolute Eosinophils Absolute Basophils PT INR Sodium Potassium Chloride Carbon Dioxide Anion Gap BUN Creatinine Est GFR ( Amer) Est GFR (Non-Af Amer) Glucose Calcium Total Bilirubin Direct Bilirubin Neonat Total Bilirubin Neonat Direct Bilirubin Neonat Indirect Bili AST ALT Alkaline Phosphatase Total Protein Albumin Urine Color YELLOW Urine Appearance SLIGHTLY-CLOUDY Urine pH 5.0 Ur Specific [place] 1.019 Urine Protein 30 H Urine Glucose (UA) NEGATIVE Urine Ketones NEGATIVE Urine Blood NEGATIVE Urine Nitrite NEGATIVE Urine Bilirubin NEGATIVE Urine Urobilinogen NEGATIVE Ur Leukocyte Esterase MODERATE H Urine WBC (Auto) 27 Urine RBC (Auto) 2 Squamous Epi Cells Auto 2 Urine Mucus (Auto) RARE Urine Ascorbic Acid NEGATIVE - Diagnostic Test Radiology reviewed: Reports reviewed Discharge - Discharge Clinical Impression: Ovarian cancer Qualifiers: Laterality: unspecified laterality Qualified Code(s): C56.9 - Malignant neoplasm of unspecified ovary Abdominal pain Qualifiers: Abdominal location: right upper quadrant Qualified Code(s): R10.11 - Right upper quadrant pain Bowel obstruction Qualifiers: Intestinal obstruction type: unspecified Intestinal obstruction extent: unspecified extent Qualified Code(s): K56.609 - Unspecified intestinal obstruction, unspecified as to partial versus complete obstruction Condition: Stable Disposition: ADMITTED OBSERVATION Admitting Provider: Surgicalist Unit Admitted: Medical Floor
--- NOTE | 2017-07-18 22:12 | RADIOLOGY REPORT (SQ) ---
EXAM DESCRIPTION: ACUTE ABDOMEN SERIES COMPLETED DATE/TIME: 07/18/2017 9:41 pm REASON FOR STUDY: RUQ pain, hx ov ca with mets COMPARISON: None. NUMBER OF VIEWS: Three views. TECHNIQUE: Frontal chest, supine abdomen and upright/decubitus abdomen radiographic images acquired. LIMITATIONS: None. FINDINGS: CHEST: Lungs clear of infiltrates. FREE AIR: None. No abnormal gas collections. BOWEL GAS PATTERN: Multiple dilated small bowel loops with air fluid levels over the central abdomen. CALCIFICATIONS: No suspicious calcifications. HARDWARE: None in the abdomen. SOFT TISSUES: No gross mass or suggestion of organomegaly. BONES: No acute fracture. No worrisome bone lesions. OTHER: No other significant finding. IMPRESSION: Multiple dilated small bowel loops with air fluid levels over the central abdomen, ileus versus developing obstruction. TECHNICAL DOCUMENTATION: JOB ID: [id number] [id number] 2010 [employer]- All Rights Reserved
[2017-07-19] MEDS ORDERED: NORMAL SALINE 1000 ML 1,000 ML IV ONE (01:01)
[2017-07-19] MEDS ORDERED: DEXTROSE 40% GEL 15 GM TUBE PO PRN ×2 (01:57)
[2017-07-19] MEDS ORDERED: DEXTROSE 50%-WATER 25 GM/50 ML DISP.SYRIN IV PRN ×2 (01:57)
[2017-07-19] MEDS ORDERED: GLUCAGON,HUMAN RECOMB 1 MG INJ SUBCUT PRN (01:57)
[2017-07-19] MEDS ORDERED: PHARMACY COMMUNICATION ORDER MC NR (02:00)
--- NOTE | 2017-07-19 02:07 | PDOC H&P ---
History of Present Illness Admission Date/PCP: 07/19/17 01:27 Patient complains of: Right upper quadrant pain with abdominal distention History of Present Illness: CHARITY DESIR is a 51 year old female with stage IV ovarian cancer (liver metastasis), which she takes an oral chemotherapeutic agent, comes to the hospital with quadrant pain, abdominal distention, without nausea or vomiting. Patient had a small bowel movement yesterday, but denies any flatus over the past 24 hours. Seen in the emergency room, and found to have marked abdominal distention, without significant tenderness. CT scan of the abdomen reveals dilated loops of bowel, with air-fluid levels, suggesting ileus versus small bowel obstruction. Surgical referral was thus made. Past Medical History Cardiac Medical History: Denies: Coronary Artery Disease, Myocardial Infarction, Hypertension Pulmonary Medical History: Denies: Asthma, Bronchitis, Chronic Obstructive Pulmonary Disease (COPD), Pneumonia Neurological Medical History: Denies: Seizures Musculoskeltal Medical History: Reports: Arthritis - BILAT KNEES Hematology: Reports: Anemia - WHILE Past Surgical History Past Surgical History: Reports: Section - 4, Hysterectomy, Orthopedic Surgery - R knee Social History Smoking Status: Former Smoker Family History Parental Family History Reviewed: No Children Family History Reviewed: No Sibling(s) Family History Reviewed.: No Medication/Allergy Home Medications: Oxycodone HCl/Acetaminophen [Percocet 5-325 mg Tablet] 1 tab PO ASDIR PRN #15 tab 08/06/16 Allergies/Adverse Reactions: morphine Adverse Reaction (Verified 07/18/17 17:36) Dizziness Penicillins Adverse Reaction (Verified 07/18/17 17:36) Edema Physical Exam Vital Signs: Temp Pulse Resp BP Pulse Ox 99.0 F 82 14 132/85 H 97 07/18/17 20:33 07/18/17 20:33 07/18/17 20:33 07/18/17 20:33 07/18/17 20:33 General appearance: PRESENT: no acute distress, thin, well-developed Head exam: PRESENT: atraumatic, normocephalic Mouth exam: PRESENT: moist, neck supple Neck exam: PRESENT: full ROM. ABSENT: JVD, lymphadenopathy, tenderness, thyromegaly, tracheal deviation Respiratory exam: PRESENT: clear to auscultation sheila, unlabored Cardiovascular exam: PRESENT: RRR GI/Abdominal exam: PRESENT: ascites, distended, hypoactive bowel sounds, soft. ABSENT: mass, rebound, rigid, tenderness Rectal exam: PRESENT: deferred Results Impressions: Acute Abdomen Series 07/18/17 21:01 IMPRESSION: Multiple dilated small bowel loops with air fluid levels over the central abdomen, ileus versus developing obstruction. Assessment & Plan - Diagnosis (1) Bowel obstruction Qualifiers: Intestinal obstruction type: unspecified Intestinal obstruction extent: unspecified extent Qualified Code(s): K56.609 - Unspecified intestinal obstruction, unspecified as to partial versus complete obstruction - Plan Summary Plan Summary: IVfluids, nasogastric tube decompression, and n.p.o. status will be initiated.
[2017-07-19] MEDS: DEXTROSE 5%-LACTATED RINGERS 1,000 ML IV PRN ×3 (03:02→21:18)
[2017-07-19] MEDS: HYDROMORPHONE HCL INJ/PF 2 MG/ML AMPULE IV PRN ×4 (03:02→21:30)
--- NOTE | 2017-07-19 04:07 | RADIOLOGY REPORT (SQ) ---
EXAM DESCRIPTION: KUB/ABDOMEN (SINGLE VIEW) CLINICAL HISTORY: Check Placement of NG Tube COMPARISON: 07/18/2017 FINDINGS: Single view of the abdomen. NG tube and side-port with tip in the stomach. Dilated loops of small bowel partially visualized. No free perineal air. Lung bases clear. Partial visualization of central venous catheter. IMPRESSION: 1. NG tube with tip and side-port in the stomach.
[2017-07-19] MEDS: ONDANSETRON HCL INJ/PF 4 MG/2 ML SDV IV PRN ×2 (04:15→09:45)
[2017-07-19] MEDS ORDERED: INFLUENZA ADLT QUAD (36MOS+) 2017-18 VAC 0.5 ML SYR IM PRN (09:22)
[2017-07-19] MEDS: ENOXAPARIN SODIUM INJ 40 MG/0.4 ML DISP.SYRIN SUBCUT SCH (09:28)
[2017-07-19] MEDS: FAMOTIDINE INJ/PF 20 MG/2 ML SDV IV SCH ×2 (09:29→21:18)
[2017-07-19] MEDS ORDERED: PHENOL/SODIUM PHENOLATE 100 SPRAY/177 ML BOTTLE PO PRN (18:05)
[2017-07-19] MEDS ORDERED: PHENOL/SODIUM PHENOLATE 100 SPRAY/177 ML BOTTLE ONE (18:09)
--- NOTE | 2017-07-19 19:08 | PDOC PROGRESS REPORT ---
Subjective Progress Note for:: 07/19/17 Subjective:: Patient seen for small bowel obstruction. Reason For Visit: SMALL BOWEL OBSTRUCTION Physical Exam Vital Signs: Temp Pulse Resp BP Pulse Ox 97.9 F 55 L 15 123/74 98 07/19/17 15:49 07/19/17 15:49 07/19/17 15:49 07/19/17 15:49 07/19/17 15:49 Intake & Output 07/18/17 07/19/17 07/20/17 06:59 06:59 06:59 Intake Total 1000 Output Total 250 Balance 750 Weight 86.3 kg GI/Abdominal exam: PRESENT: other - The abdomen is slightly distended. Bowel sounds are positive. Results Impressions: Acute Abdomen Series 07/18/17 21:01 IMPRESSION: Multiple dilated small bowel loops with air fluid levels over the central abdomen, ileus versus developing obstruction. KUB X-Ray 07/19/17 01:58 IMPRESSION: 1. NG tube with tip and side-port in the stomach. Assessment & Plan - Diagnosis (1) Bowel obstruction Qualifiers: Intestinal obstruction type: unspecified Intestinal obstruction extent: unspecified extent Qualified Code(s): K56.609 - Unspecified intestinal obstruction, unspecified as to partial versus complete obstruction - Time Time Spent with patient: 15-24 minutes - We will continue on liquid diet and advance slowly.
[2017-07-20] MEDS: HYDROMORPHONE HCL INJ/PF 2 MG/ML AMPULE IV PRN ×2 (06:27→18:37)
[2017-07-20] MEDS: FAMOTIDINE INJ/PF 20 MG/2 ML SDV IV SCH ×2 (09:03→22:37)
[2017-07-20] MEDS: ENOXAPARIN SODIUM INJ 40 MG/0.4 ML DISP.SYRIN SUBCUT SCH (09:03)
[2017-07-20] MEDS: DEXTROSE 5%-LACTATED RINGERS 1,000 ML IV PRN (09:04)
--- NOTE | 2017-07-20 11:44 | PDOC PROGRESS REPORT ---
Subjective Progress Note for:: 07/20/17 Subjective:: She voices no complaints today. She states she is having bowel movements and passing gas. She denies abdominal pain. Reason For Visit: SMALL BOWEL OBSTRUCTION Patient was admitted overnight [place] night 07/19/2017. NG tube was placed. Since admission NG tube put out about 500 cc. Patient has developed found evidence of bowel function with flatus and bowel movements. Her abdomen is less distended and tender. He states she is hungry. Physical Exam Vital Signs: Temp Pulse Resp BP Pulse Ox 98.0 F 62 16 117/64 91 L 07/20/17 07:24 07/20/17 07:24 07/20/17 07:24 07/20/17 07:24 07/20/17 07:24 Intake & Output 07/19/17 07/20/17 07/21/17 06:59 06:59 06:59 Intake Total 1000 Output Total 1050 Balance -50 Weight 86.3 kg 90.8 kg General appearance: PRESENT: no acute distress Head exam: PRESENT: atraumatic Respiratory exam: PRESENT: accessory muscle use, clear to auscultation sheila Cardiovascular exam: PRESENT: RRR GI/Abdominal exam: PRESENT: normal bowel sounds. ABSENT: guarding, tenderness Extremities exam: ABSENT: tenderness Results Impressions: Acute Abdomen Series 07/18/17 21:01 IMPRESSION: Multiple dilated small bowel loops with air fluid levels over the central abdomen, ileus versus developing obstruction. KUB X-Ray 07/19/17 01:58 IMPRESSION: 1. NG tube with tip and side-port in the stomach. Assessment & Plan - Diagnosis (1) Bowel obstruction Qualifiers: Intestinal obstruction type: unspecified Intestinal obstruction extent: unspecified extent Qualified Code(s): K56.609 - Unspecified intestinal obstruction, unspecified as to partial versus complete obstruction - Plan Summary Plan Summary: Remove NG tube Clear liquid diet ContinueIV fluids Ambulate
[2017-07-21] MEDS: DEXTROSE 5%-LACTATED RINGERS 1,000 ML IV PRN ×2 (03:59→14:23)
[2017-07-21 07:24] LABS: HEMATOCRIT 35.7 % (36.0-47.0); HEMOGLOBIN 11.9 g/dL (12.0-15.5); MEAN CORPUSCULAR HEMOGLOBIN 29.9 pg (27.0-33.4); MEAN CORPUSCULAR HGB CONC 33.4 g/dL (32.0-36.0); MEAN CORPUSCULAR VOLUME 90 fl (80-97); PLATELET COUNT 198 10^3/uL (150-450); RED BLOOD COUNT 3.99 10^6/uL (3.72-5.28); RED CELL DISTRIBUTION WIDTH 17.4 % (11.5-14.0); WHITE BLOOD COUNT 9.6 10^3/uL (4.0-10.5)
[2017-07-21 07:46] LABS: ALANINE AMINOTRANSFERASE 36 U/L (9-52); ALKALINE PHOSPHATASE 215 U/L (38-126); ASPARTATE AMINO TRANSFERASE 77 U/L (14-36); BILIRUBIN,DIRECT 0.3 mg/dL (0.0-0.4); BILIRUBIN,TOTAL 0.4 mg/dL (0.2-1.3); BLOOD UREA NITROGEN 16 mg/dL (7-20); CALCIUM 8.4 mg/dL (8.4-10.2); CHLORIDE 108 mmol/L (98-107); GLUCOSE 78 mg/dL (75-110); POTASSIUM 3.7 mmol/L (3.6-5.0); TOTAL PROTEIN 4.3 g/dL (6.3-8.2)
[2017-07-21 07:58] LABS: ANION GAP 5 (5-19); CARBON DIOXIDE 25 mmol/L (22-30); SODIUM 137.9 mmol/L (137-145)
[2017-07-21] MEDS: HYDROMORPHONE HCL INJ/PF 2 MG/ML AMPULE IV PRN ×3 (08:04→20:38)
[2017-07-21] MEDS: ENOXAPARIN SODIUM INJ 40 MG/0.4 ML DISP.SYRIN SUBCUT SCH (09:59)
[2017-07-21] MEDS: FAMOTIDINE INJ/PF 20 MG/2 ML SDV IV SCH ×2 (09:59→22:41)
--- NOTE | 2017-07-21 16:05 | PDOC PROGRESS REPORT ---
Subjective Progress Note for:: 07/21/17 Subjective:: Feels fine no nausea or vomiting. Passing flatus. Not ready to go home yet Reason For Visit: SMALL BOWEL OBSTRUCTION Physical Exam Vital Signs: Temp Pulse Resp BP Pulse Ox 98.0 F 79 18 109/75 100 07/21/17 12:00 07/21/17 12:00 07/21/17 12:00 07/21/17 12:00 07/21/17 12:00 Intake & Output 07/20/17 07/21/17 07/22/17 06:59 06:59 06:59 Intake Total 1000 340 Output Total 1050 Balance -50 340 Weight 90.8 kg 91.2 kg General appearance: PRESENT: no acute distress GI/Abdominal exam: PRESENT: other - Benign abdomen Results Laboratory Results: 07/21/17 06:54 07/21/17 06:54 07/21/17 07/21/17 06:54 06:54 WBC 9.6 RBC 3.99 Hgb 11.9 L Hct 35.7 L MCV 90 MCH 29.9 MCHC 33.4 RDW 17.4 H Plt Count 198 Sodium 137.9 Potassium 3.7 Chloride 108 H Carbon Dioxide 25 Anion Gap 5 BUN 16 Creatinine 0.67 Est GFR ( Amer) > 60 Est GFR (Non-Af Amer) > 60 Glucose 78 Calcium 8.4 Total Bilirubin 0.4 AST 77 H ALT 36 Alkaline Phosphatase 215 H Total Protein 4.3 L Albumin 2.0 L Impressions: Acute Abdomen Series 07/18/17 21:01 IMPRESSION: Multiple dilated small bowel loops with air fluid levels over the central abdomen, ileus versus developing obstruction. KUB X-Ray 07/19/17 01:58 IMPRESSION: 1. NG tube with tip and side-port in the stomach. Assessment & Plan - Diagnosis (1) Partial small bowel obstruction Plan: Partial small bowel obstruction resolving nonoperatively. Plan: 1. Advance diet, shower, anticipate discharge home the next 24 hours
[2017-07-22] MEDS ORDERED: PHARMACY COMMUNICATION ORDER MC NR (08:00)
--- NOTE | 2017-07-22 08:02 | PDOC PROGRESS REPORT ---
Subjective Progress Note for:: 07/22/17 Reason For Visit: SMALL BOWEL OBSTRUCTION Physical Exam Vital Signs: Temp Pulse Resp BP Pulse Ox 98.0 F 62 18 109/79 98 07/22/17 03:37 07/22/17 03:37 07/22/17 03:37 07/22/17 03:37 07/21/17 23:32 Intake & Output 07/21/17 07/22/17 07/23/17 06:59 06:59 06:59 Intake Total 340 2200 Output Total 1600 Balance 340 600 Weight 91.2 kg 92.1 kg General appearance: PRESENT: no acute distress, well-developed, well-nourished Head exam: PRESENT: atraumatic, normocephalic Respiratory exam: PRESENT: clear to auscultation sheila Cardiovascular exam: PRESENT: RRR GI/Abdominal exam: PRESENT: soft, other - Moderately distended. Bowel sounds present. Results Laboratory Results: 07/21/17 06:54 07/21/17 06:54 07/21/17 06:54 Sodium 137.9 Potassium 3.7 Chloride 108 H Carbon Dioxide 25 Anion Gap 5 BUN 16 Creatinine 0.67 Est GFR ( Amer) > 60 Est GFR (Non-Af Amer) > 60 Glucose 78 Calcium 8.4 Total Bilirubin 0.4 AST 77 H ALT 36 Alkaline Phosphatase 215 H Total Protein 4.3 L Albumin 2.0 L Impressions: Acute Abdomen Series 07/18/17 21:01 IMPRESSION: Multiple dilated small bowel loops with air fluid levels over the central abdomen, ileus versus developing obstruction. KUB X-Ray 07/19/17 01:58 IMPRESSION: 1. NG tube with tip and side-port in the stomach. Assessment & Plan - Diagnosis (1) Bowel obstruction Qualifiers: Intestinal obstruction type: unspecified Intestinal obstruction extent: unspecified extent Qualified Code(s): K56.609 - Unspecified intestinal obstruction, unspecified as to partial versus complete obstruction (2) Ovarian cancer Qualifiers: Laterality: unspecified laterality Qualified Code(s): C56.9 - Malignant neoplasm of unspecified ovary - Time Time Spent with patient: 15-24 minutes - Plan Summary Plan Summary: She is having some nausea after eating. I am going to order orally contrasted CT today. She reports that she has difficulty drinking the contrast and we are going to place an NG tube to make sure she gets an adequate volume of contrast for the study. Follow-up after CT scan.
--- NOTE | 2017-07-22 09:16 | RADIOLOGY REPORT (SQ) ---
EXAM DESCRIPTION: KUB/ABDOMEN (SINGLE VIEW) COMPLETED DATE/TIME: 07/22/2017 9:05 am REASON FOR STUDY: Check Placement of NG Tube COMPARISON: CT abdomen pelvis 07/16/2017 NUMBER OF VIEWS: One view. TECHNIQUE: Portable upright limited abdominal film for nasogastric tube placement LIMITATIONS: None. FINDINGS: A nasogastric tube is present with the tip and side port in stomach. At the upper edge of the field of view a permanent central line is present with the tip in the superi or vena cava. There are surgical clips in the left upper quadrant. IMPRESSION: Nasogastric tube tip and side port in the stomach. TECHNICAL DOCUMENTATION: JOB ID: [id number] [employer]- All Rights Reserved
[2017-07-22] MEDS: ENOXAPARIN SODIUM INJ 40 MG/0.4 ML DISP.SYRIN SUBCUT SCH (09:59)
[2017-07-22] MEDS: FAMOTIDINE INJ/PF 20 MG/2 ML SDV IV SCH ×2 (09:59→22:03)
[2017-07-22] MEDS: ONDANSETRON HCL INJ/PF 4 MG/2 ML SDV IV PRN (10:20)
--- NOTE | 2017-07-22 11:58 | RADIOLOGY REPORT (SQ) ---
EXAM DESCRIPTION: CT ABD/PELVIS WITH IV ORAL COMPLETED DATE/TIME: 07/22/2017 8:06 am REASON FOR STUDY: bowel obstruction COMPARISON: 07/16/2017 TECHNIQUE: CT scan of the abdomen and pelvis performed using helical scanning technique with dynamic intravenous contrast injection. No oral contrast. Images reviewed with lung, soft tissue, and bone windows. Reconstructed coronal and sagittal MPR images reviewed. Delayed images for evaluation of the urinary system also acquired. All images stored on PACS. All CT scanners at this facility use dose modulation, iterative reconstruction, and/or weight based d osing when appropriate to reduce radiation dose to as low as reasonably achievable (ALARA). [facility]: Dose Right [facility]: CareDose [facility]: Dose Right [facility]: Teradose 4D [facility]: [employer] CONTRAST TYPE AND DOSE: 69 mL Isovue 370 RENAL FUNCTION: Creatinine 0.67 RADIATION DOSE: . LIMITATIONS: None. FINDINGS: LOWER CHEST: Small bilateral pleural effusions are identified with some minimal associated airspace consolidation most consistent with atelectatic changes. LIVER: The previously described large metastatic lesion in the posterior right lobe of the liver appe ars essentially unchanged. The previously described multiple other new smaller liver lesions are aga in identified. There is heterogeneous density in the liver consistent with areas of fatty infiltrati on and fatty sparing SPLEEN: Normal size. No focal lesions. PANCREAS: No masses. No significant calcifications. No adjacent inflammation or peripancreatic fluid collections. Pancreatic duct not dilated. GALLBLADDER: The previously described small gallstones are again identified. No inflammatory changes to suggest cholecystitis. ADRENAL GLANDS: No significant masses or asymmetry. RIGHT KIDNEY AND URETER: No solid masses. No significant calcifications. No hydronephrosis or hyd roureter. LEFT KIDNEY AND URETER: No solid masses. No significant calcifications. No hydronephrosis or hydr oureter. AORTA AND VESSELS: No aneurysm. No dissection. Renal arteries, SMA, celiac without stenosis. RETROPERITONEUM: No retroperitoneal adenopathy, hemorrhage or masses. BOWEL AND PERITONEAL CAVITY: A large amount of intra-abdominal and pelvic ascitic fluid is identified showing interval increase in volume as compared to the previous study. APPENDIX: Normal. PELVIS: A large amount of pelvic ascitic fluid is identified showing interval increase as compared to the previous study. No pelvic masses are identified. ABDOMINAL WALL: No masses. No hernias. BONES: No significant or acute findings. OTHER: No other significant finding. IMPRESSION: Small bilateral pleural effusions are identified with some minimal associated airspace c onsolidation most consistent with atelectatic changes showing interval progression as compared to the previous study. The previously described large metastatic lesion in posterior right lobe of the mihai er appears essentially unchanged. The previously described multiple other new smaller liver lesions are again identified. Overall interval increase in volume of the large amount of intra-abdominal and pelvic ascitic fluid. Other findings as noted above TECHNICAL DOCUMENTATION: JOB ID: [id number] Quality ID # [id number]: Final reports with documentation of one or more dose reduction techniques (e.g., Au tomated exposure control, adjustment of the mA and/or kV according to patient size, use of iterative reconstruction technique) 2010 [employer]- All Rights Reserved
[2017-07-22] MEDS: HYDROMORPHONE HCL INJ/PF 2 MG/ML AMPULE IV PRN ×2 (14:57→20:18)
--- NOTE | 2017-07-23 08:52 | PDOC DISCHARGE SUMMARY ---
Discharge Summary (SDC) - Discharge Final Diagnosis: Partial small bowel obstruction Metastatic ovarian cancer Condition: Stable Treatment or Instructions: The patient is to follow-up with her oncologist tomorrow. Discharge Activity: Activity As Tolerated Home Care Assistance: None Needed Report the Following to Your Physician Immediately: Nausea, Vomiting Provider Note Provider Note: The patient was admitted to the hospital with diagnosis of partial small bowel obstruction thought secondary to metastatic ovarian cancer. She was admitted on July 19. NG tube was placed at the time of admission. With decompression her symptoms improved. Her nausea resolved and on 20 July, her NG tube was removed. She was started on a clear liquid diet. She had some nausea after starting a clear liquid diet. Because of persistent complaints of nausea despite passing flatus, a CT scan was done on July 22, 2017. This revealed no evidence of obstruction. She did have a moderate amount of ascites consistent with her known ovarian carcinoma. Hepatic mass was noted and unchanged. Contrast did pass into the colon. This morning she is better symptomatically. She is having less nausea. She is passing flatus and has had a bowel movement. Her pain is well controlled. She does want to go home. She has planned follow-up with her oncologist tomorrow. She will be discharged with instructions to return should she develop worsening abdominal pain nausea or vomiting.
[2017-07-23] MEDS: ENOXAPARIN SODIUM INJ 40 MG/0.4 ML DISP.SYRIN SUBCUT SCH (10:06)
[2017-07-23] MEDS: FAMOTIDINE INJ/PF 20 MG/2 ML SDV IV SCH (10:06)
[2017-07-23 13:01] VITALS: BP 109/75
== END 2017-07-23 14:19 | disposition home or self-care (01) | DRG 755 ==
LOC: ER 17:35 → EH 07-19 01:27 → OBSVTOIN 07-19 01:27 → INTOOBSV 07-19 01:27 → UNDOADMOB 07-19 01:27 → 2S 07-19 03:54
PROVIDERS: ADMIT Surgery; ATTEND Surgery
PROC: 0D9670Z Drainage of Stomach with Drainage Device, Via Natural or Artificial Opening (ICD-10-PCS; principal; 2017-07-19)
DX: C56.9 Malignant neoplasm of unspecified ovary (principal); C78.7 Secondary malignant neoplasm of liver and intrahepatic bile duct; M19.90 Unspecified osteoarthritis, unspecified site; Z87.891 Personal history of nicotine dependence; Z90.710 Acquired absence of both cervix and uterus; Z88.0 Allergy status to penicillin; Z88.6 Allergy status to analgesic agent
CPT/HCPCS: 36415; 36591; 74018; 74022; 74177; 80053; 81001; 85025; 85027; 85610; 90686; 96361; 96365; 96375; 96376; 99285; J1170; J1642; J1650; J2405; J3490; J7030; S0028

== ENCOUNTER 2017-07-25 10:50 | Day surgery (SDC) | payer MEDICAID ==
[2017-07-25 11:46] LABS: HEMATOCRIT 37.8 % (36.0-47.0); HEMOGLOBIN 12.9 g/dL (12.0-15.5); MEAN CORPUSCULAR HEMOGLOBIN 30.3 pg (27.0-33.4); MEAN CORPUSCULAR HGB CONC 34.1 g/dL (32.0-36.0); MEAN CORPUSCULAR VOLUME 89 fl (80-97); PLATELET COUNT 191 10^3/uL (150-450); RED BLOOD COUNT 4.25 10^6/uL (3.72-5.28); RED CELL DISTRIBUTION WIDTH 17.5 % (11.5-14.0); WHITE BLOOD COUNT 10.4 10^3/uL (4.0-10.5)
[2017-07-25 11:58] LABS: INTERNATIONAL RATION (INR) 0.94; PROTHROMBIN TIME 13.3 SEC (11.4-15.4)
[2017-07-25 11:59] LABS: PARTIAL THROMBOPLASTIN TIME 32.6 SEC (23.5-35.8)
[2017-07-25 12:03] LABS: BLOOD UREA NITROGEN 19 mg/dL (7-20)
--- NOTE | 2017-07-25 15:08 | RADIOLOGY REPORT (SQ) ---
EXAM DESCRIPTION: U/S ABD PARACENTESIS COMPLETED DATE/TIME: 07/25/2017 2:54 pm REASON FOR STUDY: ASCITES COMPARISON CT abdomen pelvis 07/22/2017 LIMITATIONS: None. PROCEDURE: After obtaining informed consent, the patient was brought to the ultrasound suite. The p rocedure was performed with the patient on a gurney. Ultrasound was used to identify a prominent poc ket of ascites in the right lower quadrant. An appropriate access site was selected. The patient wa s prepped and draped in usual sterile fashion. The access site was anesthetized with 9 mL 1% lidoca ine. A Tqfw-[id number]-[id number] needle was advanced into the fluid. After aspiration of fluid the needle, th e catheter was advanced off the needle into the fluid. A total of 6,000 mL of clear yellow fluid was removed. The patient tolerated the procedure well left the department in satisfactory condition. No specimens were sent for testing. IMPRESSION: Successful ultrasound-guided therapeutic paracentesis, 6 L of clear yellow fluid obtaine d COMMENT: Patient medication list reviewed: Yes- Quality ID# 130:Eligible professional attests to doc umenting in the medical record they obtained, updated, or reviewed the patient's current medications. Quality ID #76: The patient was prepped and draped using maximum sterile barrier technique including cap, mask, sterile gown, sterile gloves, a large sterile sheet, hand hygiene, and 2% Chlorhexidine fo r cutaneous antisepsis. When ultrasound is used, sterile ultrasound techniques are followed requiring sterile gel and sterile probes. Quality ID #145: Final reports for procedures using fluoroscopy that document radiation exposure brittny elaine, or exposure time and number of fluorographic images (if radiation exposure indices are not avail able) TECHNICAL DOCUMENTATION: JOB ID: [id number] [employer]- All Rights Reserved
[2017-07-25 16:24] VITALS: BP 128/97
== END 2017-07-25 16:15 | disposition home or self-care (01) ==
LOC: RAD 10:50
PROVIDERS: ATTEND Internal Medicine
PROC: 0W9G3ZZ Drainage of Peritoneal Cavity, Percutaneous Approach (ICD-10-PCS; principal; 2017-07-25)
DX: C78.7 Secondary malignant neoplasm of liver and intrahepatic bile duct (principal); C56.2 Malignant neoplasm of left ovary; R18.8 Other ascites; Z88.0 Allergy status to penicillin; Z88.5 Allergy status to narcotic agent
CPT/HCPCS: 36415; 49083; 82565; 84520; 85027; 85610; 85730

== ENCOUNTER 2017-08-05 17:40 | Inpatient (IN) | payer MEDICAID ==
[2017-08-05 18:47] LABS: HEMATOCRIT 43.8 % (36.0-47.0); HEMOGLOBIN 14.8 g/dL (12.0-15.5); MEAN CORPUSCULAR HEMOGLOBIN 30.7 pg (27.0-33.4); MEAN CORPUSCULAR HGB CONC 33.8 g/dL (32.0-36.0); MEAN CORPUSCULAR VOLUME 91 fl (80-97); PLATELET COUNT 126 10^3/uL (150-450); RED BLOOD COUNT 4.82 10^6/uL (3.72-5.28); RED CELL DISTRIBUTION WIDTH 18.1 % (11.5-14.0); WHITE BLOOD COUNT 11.7 10^3/uL (4.0-10.5)
[2017-08-05 18:51] LABS: INTERNATIONAL RATION (INR) 0.97; PROTHROMBIN TIME 13.6 SEC (11.4-15.4)
[2017-08-05 18:52] LABS: PARTIAL THROMBOPLASTIN TIME 33.8 SEC (23.5-35.8)
[2017-08-05 19:09] LABS: ABSOLUTE LYMPHOCYTES# (MANUAL) 1.6 10^3/uL (0.5-4.7); ABSOLUTE MONOCYTES # (MANUAL) 1.2 10^3/uL (0.1-1.4); ABSOLUTE NEUTROPHILS# (MANUAL) 8.9 10^3/uL (1.7-8.2); BAND NEUTROPHILS % (MANUAL) 2 % (3-5); BASOPHILS % (MANUAL) 0 % (0-2); EOSINOPHILS % (MANUAL) 0 % (0-6); LYMPHOCYTES % (MANUAL) 14 % (13-45); MONOCYTES % (MANUAL) 10 % (3-13); SEGMENTED NEUTROPHILS % (MAN) 74 % (42-78); TOTAL CELLS COUNTED 100
[2017-08-05 19:10] LABS: ANISOCYTOSIS 1+; PLATELET COMMENT DECREASED; POIKILOCYTOSIS SLIGHT; TOXIC GRANULATION SLIGHT
--- NOTE | 2017-08-05 19:14 | ER Document Report ---
ED GI/ - General Chief Complaint: Abdominal Swelling Stated Complaint: ABDOMINAL PAIN/SWELLING Time Seen by Provider: 08/05/17 18:05 Notes: The patient is a 51-year-old female, past medical history stage IV ovarian cancer (followed by Dr. Patle), recurrent ascites, presents with 2 days of increasing shortness of breath and worsening abdominal ascites. She had 6 L drained off by IR 1 week ago with some relief of her prior dyspnea and is requesting a paracentesis tonight. She denies fevers, chest pain, urinary symptoms, hemoptysis, cough, back pain or leg swelling. TRAVEL OUTSIDE OF THE [place] IN LAST 30 DAYS: No - Related Data Allergies/Adverse Reactions: morphine Adverse Reaction (Verified 07/25/17 11:11) Dizziness Penicillins Adverse Reaction (Verified 07/25/17 11:11) Edema Past Medical History - General Information source: Patient - Social History Smoking Status: Unknown if Ever Smoked Family History: Reviewed & Not Pertinent - Past Medical History Cardiac Medical History: Denies: Hx Congestive Heart Failure, Hx Coronary Artery Disease, Hx Heart Attack, Hx Hypertension Pulmonary Medical History: Reports: Hx Asthma - As a child Denies: Hx Bronchitis, Hx COPD, Hx Pneumonia, Hx Tuberculosis Neurological Medical History: Denies: Hx Cerebrovascular Accident, Hx Seizures Renal/ Medical History: Denies: Hx End Stage Renal Disease, Hx Kidney Stones, Hx Peritoneal Dialysis Malignancy Medical History: Reports: Hx Ovarian Cancer GI Medical History: Denies: Hx Cirrhosis, Hx Gastroesophageal Reflux Disease, Hx Ulcer Musculoskeltal Medical History: Reports Hx Arthritis - BILAT KNEES, Denies Hx Multiple Sclerosis Psychiatric Medical History: Denies: Hx Bipolar Disorder, Hx Depression, Hx Schizophrenia Past Surgical History: Reports: Hx Section - 4, Hx Hysterectomy, Hx Orthopedic Surgery - R knee - Immunizations Hx Diphtheria, Pertussis, Tetanus Vaccination: No Review of Systems - Review of Systems Notes: REVIEW OF SYSTEMS: CONSTITUTIONAL: -fevers, -chills EENT: -eye pain, -difficulty swallowing, -nasal congestion CARDIOVASCULAR: -chest pain, -syncope. RESPIRATORY: -cough, +SOB GASTROINTESTINAL: +abdominal pain, -nausea, -vomiting, -diarrhea GENITOURINARY: -dysuria, -hematuria MUSCULOSKELETAL: -back pain, -neck pain SKIN: -rash or skin lesions. HEMATOLOGIC: -easy bruising or bleeding. LYMPHATIC: -swollen, enlarged glands. NEUROLOGICAL: -altered mental status or loss of consciousness, -headache, - neurologic symptoms PSYCHIATRIC: -anxiety, -depression. ALL OTHER SYSTEMS REVIEWED AND NEGATIVE. Physical Exam - Vital signs Vitals: Resp Pulse Ox 21 H 92 08/05/17 17:56 08/05/17 17:56 - Notes Notes: PHYSICAL EXAMINATION: GENERAL: Mild respiratory distress. HEAD: Atraumatic, normocephalic. EYES: Pupils equal round and reactive to light, extraocular movements intact, sclera anicteric, conjunctiva are normal. ENT: nares patent, oropharynx clear without exudates. Moist mucous membranes. NECK: Normal range of motion, supple without lymphadenopathy LUNGS: Breath sounds clear to auscultation bilaterally and equal. No wheezes rales or rhonchi. Mild tachypnea. HEART: Tachycardia, regular rhythm. ABDOMEN: Tense abdomen with ascites, normoactive bowel sounds. No guarding, no rebound. No masses appreciated. EXTREMITIES: Normal range of motion, no pitting or edema. No cyanosis. NEUROLOGICAL: Cranial nerves grossly intact. Normal speech, normal gait. Normal sensory and motor exams. PSYCH: Normal mood, normal affect. SKIN: Jaundiced skin. Course - Re-evaluation Re-evalutation: Patient with stage IV ovarian cancer and ascites with 2 days of increasing dyspnea and increasing ascites. Interventional radiology not available at the time of presentation, so she was consented for a bedside paracentesis and 1.6 L was pulled off of her abdomen due to her dyspnea. After paracentesis, she feels slightly better, but she is still tachypneic and mildly tachycardic. Concern for PE, so CTA ordered, which showed multiple acute right-sided PEs. 08/05/17 22:00 Spoke to patient's oncologist, Dr. Patel, about multiple pulmonary embolism. With borderline GFR, will begin patient on heparin. Also spoke to him about elevation in LFTs. Pt with known liver mets. Recommends admission for further evaluation and treatment. Pt does not have a PMD. Spoke to patient about the extent of her disease and about code status. She said at this point, she is a full code, but she does not want to be in a persistent vegetative state. 08/05/17 23:[address] Giraldo and will admit patient as Inpatient to Tele. - Vital Signs Vital signs: Temp Pulse Resp BP Pulse Ox 97.7 F 20 114/98 H 95 08/05/17 22:19 08/05/17 19:00 08/05/17 18:02 08/05/17 19:00 - Laboratory Result Diagrams: 08/05/17 18:34 08/05/17 18:34 Laboratory results interpreted by me: 08/05/17 08/05/17 18:34 18:34 WBC 11.7 H RDW 18.1 H Plt Count 126 L Band Neutrophils % 2 L Abs Neuts (Manual) 8.9 H Sodium 128.6 L Chloride 94 L BUN 55 H Creatinine 1.49 H Est GFR ( Amer) 44 L Est GFR (Non-Af Amer) 37 L Total Bilirubin 2.5 H Direct Bilirubin 2.0 H AST 240 H ALT 86 H Alkaline Phosphatase 1311 H Total Protein 5.7 L Albumin 2.6 L - Diagnostic Test Radiology reviewed: Image reviewed, Reports reviewed Radiology results interpreted by me: CTA Chest: Acute pulmonary emboli right lung. New mass at the right base suspicious metastatic disease. Left basilar mass is stable. Ascites hepatic metastases. Procedures - Paracentesis RLQ Time completed: 18:45 Consent obtained: Yes Paracentesis pre-procedure: Sterile PPE donned, Chloraprep applied, Sterile drapes applied Needle size: 16 Paracentesis location: RLQ Anesthetic type: 1% Lidocaine mL's of anesthetic: 10 Amount/type of drainage: 1600 mL yellow drainage Number of attempts: 1 Ultrasound guided: Yes Complications: No Critical Care Note - Critical Care Note Total time excluding time spent on procedures (mins): 35 Discharge - Discharge Clinical Impression: Hyponatremia Ascites Qualifiers: Ascites type: other type Qualified Code(s): R18.8 - Other ascites Dyspnea Qualifiers: Dyspnea type: unspecified Qualified Code(s): R06.00 - Dyspnea, unspecified Pulmonary embolism Qualifiers: Pulmonary embolism type: other Chronicity: acute Acute cor pulmonale presence: without acute cor pulmonale Qualified Code(s): I26.99 - Other pulmonary embolism without acute cor pulmonale Ovarian cancer Qualifiers: Laterality: unspecified laterality Qualified Code(s): C56.9 - Malignant neoplasm of unspecified ovary Condition: Serious Disposition: ADMITTED INPATIENT Admitting Provider: Hospitalist - [facility] Admitted: Telemetry
[2017-08-05 19:20] LABS: ALANINE AMINOTRANSFERASE 86 U/L (9-52); ALBUMIN 2.6 g/dL (3.5-5.0); ALKALINE PHOSPHATASE 1311 U/L (38-126); ANION GAP 13 (5-19); ASPARTATE AMINO TRANSFERASE 240 U/L (14-36); BILIRUBIN,TOTAL 2.5 mg/dL (0.2-1.3); BLOOD UREA NITROGEN 55 mg/dL (7-20); CALCIUM 8.5 mg/dL (8.4-10.2); CARBON DIOXIDE 22 mmol/L (22-30); CHLORIDE 94 mmol/L (98-107); GLUCOSE 91 mg/dL (75-110); POTASSIUM 4.5 mmol/L (3.6-5.0); SODIUM 128.6 mmol/L (137-145); TOTAL PROTEIN 5.7 g/dL (6.3-8.2)
[2017-08-05] MEDS ORDERED: NORMAL SALINE 500 ML IV ONE (20:10)
--- NOTE | 2017-08-05 20:21 | RADIOLOGY REPORT (SQ) ---
EXAM DESCRIPTION: CHEST SINGLE VIEW COMPLETED DATE/TIME: 08/05/2017 8:12 pm REASON FOR STUDY: SOB COMPARISON: 07/27/2016 EXAM PARAMETERS: NUMBER OF VIEWS: One view. TECHNIQUE: Single frontal radiographic view of the chest acquired. RADIATION DOSE: NA LIMITATIONS: None. FINDINGS: LUNGS AND PLEURA: No opacities, masses or pneumothorax. No pleural effusion. MEDIASTINUM AND HILAR STRUCTURES: No masses. Contour normal. HEART AND VASCULAR STRUCTURES: Heart normal in size. Normal vasculature. BONES: No acute findings. HARDWARE: Venous access catheter. OTHER: No other significant finding. IMPRESSION: NO ACUTE RADIOGRAPHIC FINDING IN THE CHEST. TECHNICAL DOCUMENTATION: JOB ID: [id number] [employer]- All Rights Reserved
[2017-08-05] MEDS ORDERED: HYDROMORPHONE HCL INJ/PF 2 MG/ML AMPULE IV ONE (20:44)
--- NOTE | 2017-08-05 21:59 | RADIOLOGY REPORT (SQ) ---
EXAM DESCRIPTION: CTA CHEST COMPLETED DATE/TIME: 08/05/2017 9:39 pm REASON FOR STUDY: SOB, tachycardia, stage 4 ovarian cancer COMPARISON: 07/16/2017 TECHNIQUE: CT scan of the chest performed using helical scanning technique with dynamic intravenous contrast injection. Images reviewed with lung, soft tissue and bone windows. Reconstructed coronal and sagittal MPR images reviewed. Additional 3 dimensional post-processing performed to develop Maximal Intensity Projection images (GA P). All images stored on PACS. All CT scanners at this facility use dose modulation, iterative reconstruction, and/or weight based d osing when appropriate to reduce radiation dose to as low as reasonably achievable (ALARA). [facility]: Dose Right [facility]: CareDose [facility]: Dose Right [facility]: Teradose 4D [facility]: [employer] CONTRAST TYPE AND DOSE: contrast/concentration: Isovue 370.00 mg/ml; Total Contrast Delivered: 100.0 ml; Total Saline Delivered: 55.0 ml Contrast bolus adequate for pulmonary arteries and aorta. RENAL FUNCTION: Creatinine 1.5 RADIATION DOSE: CT Rad equipment meets quality standard of care and radiation dose reduction techniq ues were employed. CTDIvol: 6.6 - 14.5 mGy. DLP: 482 mGy-cm. . LIMITATIONS: None. FINDINGS: LUNGS AND PLEURA: Acute opacity in the right lung. Left basilar masses stable. New pleur al-based mass on the right measuring 2 cm. AORTA AND GREAT VESSELS: No aneurysm. Contrast bolus not optimized for the aorta. HEART: No pericardial effusion. No significant coronary artery calcifications. PULMONARY ARTERIES: Emboli in the right proximal pulmonary arteries. HILAR AND MEDIASTINAL STRUCTURES: No identified masses or abnormal nodes. HARDWARE: None in the chest. UPPER ABDOMEN: Ascites. Liver metastases. THYROID AND OTHER SOFT TISSUES: No masses. No adenopathy. BONES: No acute or significant finding. 3D MIPS: Confirm above findings. OTHER: No other significant finding. IMPRESSION: Acute pulmonary emboli right lung. New mass at the right base suspicious metastatic disease. Left basilar mass is stable. Ascites hepatic metastases. COMMENT: Pertinent findings on the imaging study reported as a CRITICAL RESULT to TREMAYNE MONROY MD at21:53 on 08/05/2017. Category of Critical Result: Pulmonary emboli Quality ID # [id number]: Final reports with documentation of one or more dose reduction techniques (e.g., Au tomated exposure control, adjustment of the mA and/or kV according to patient size, use of iterative reconstruction technique) TECHNICAL DOCUMENTATION: JOB ID: [id number] [employer]- All Rights Reserved
[2017-08-05] MEDS ORDERED: HEPARIN SOD (PORCINE) 1,000 UNIT/ML 10 ML VIAL IV ONE (22:31)
[2017-08-05] MEDS ORDERED: HEPARIN SODIUM,PORCINE/D5W 25,000 UNIT/250 ML RTUINJ IV PRN (22:31)
[2017-08-05] MEDS ORDERED: IPRATROPIUM/ALBUTEROL 0.5-2.5 MG/3 ML AMPUL NEB PRN (23:26)
[2017-08-05] MEDS ORDERED: ACETAMINOPHEN 325 MG TABLET PO PRN (23:26)
[2017-08-05] MEDS ORDERED: MAGNESIUM HYDROXIDE SUSP 30 ML UDCUP PO PRN (23:26)
[2017-08-05] MEDS ORDERED: MAG HYDROX/AL HYDROX/SIMETH SUSP 30 ML UDCUP PO PRN (23:26)
[2017-08-05] MEDS ORDERED: ONDANSETRON HCL INJ/PF 4 MG/2 ML SDV IV PRN (23:26)
[2017-08-05] MEDS ORDERED: CALCIUM CARBONATE 500 MG TAB.CHEW PO PRN (23:29)
[2017-08-05] MEDS ORDERED: HYDRALAZINE HCL INJ/PF 20 MG/1 ML SDV IV PRN (23:29)
[2017-08-05] MEDS ORDERED: NORMAL SALINE 1000 ML 1,000 ML IV SCH (23:30)
[2017-08-05 23:54] LABS: HEMATOCRIT 41.9 % (36.0-47.0); MEAN CORPUSCULAR HGB CONC 33.5 g/dL (32.0-36.0); MEAN CORPUSCULAR VOLUME 93 fl (80-97); PLATELET COUNT 102 10^3/uL (150-450); RED BLOOD COUNT 4.53 10^6/uL (3.72-5.28); RED CELL DISTRIBUTION WIDTH 18.4 % (11.5-14.0); WHITE BLOOD COUNT 12.1 10^3/uL (4.0-10.5)
[2017-08-06 00:18] LABS: ABSOLUTE LYMPHOCYTES# (MANUAL) 1.2 10^3/uL (0.5-4.7); ABSOLUTE MONOCYTES # (MANUAL) 1.3 10^3/uL (0.1-1.4); ABSOLUTE NEUTROPHILS# (MANUAL) 9.6 10^3/uL (1.7-8.2); BAND NEUTROPHILS % (MANUAL) 3 % (3-5); BASOPHILS % (MANUAL) 0 % (0-2); EOSINOPHILS % (MANUAL) 0 % (0-6); LYMPHOCYTES % (MANUAL) 10 % (13-45); MONOCYTES % (MANUAL) 11 % (3-13); SEGMENTED NEUTROPHILS % (MAN) 76 % (42-78); TOTAL CELLS COUNTED 100
[2017-08-06 00:22] LABS: PLATELET COMMENT DECREASED; POLYCHROMASIA 1+
[2017-08-06 00:23] LABS: ANISOCYTOSIS 1+; PLATELET LARGE PRESENT; TOXIC GRANULATION SLIGHT
[2017-08-06 01:13] LABS: INTERNATIONAL RATION (INR) 1.21; PROTHROMBIN TIME 16.1 SEC (11.4-15.4)
[2017-08-06] MEDS ORDERED: HEPARIN SOD (PORCINE) 1,000 UNIT/ML 10 ML VIAL IV PRN (01:31)
[2017-08-06 01:58] LABS: PARTIAL THROMBOPLASTIN TIME > 235.0 SEC (23.5-35.8)
--- NOTE | 2017-08-06 04:59 | PDOC H&P ---
History of Present Illness Admission Date/PCP: 08/05/17 23:39 Patient complains of: Abdominal distention and shortness of breath History of Present Illness: CHARITY DESIR is a 51 year old female patient of Dr. Patel with a past medical history of stage IV ovarian cancer with widespread metastases and recurrent ascites. She presents after 2 days of increasing shortness of breath and worsening abdominal distention prompting her to seek evaluation emergency room where she has a therapeutic bedside paracentesis performed removing 1.6 L. She remained tachycardic prompting a CTA chest revealing multiple acute right- sided pulmonary emboli. She started on heparin and referred to the hospitalist for admission. Patient denies any recent leg trauma, swelling, sharp chest pain or hemoptysis. She denies recent new medications. He is currently lying flat on room air with oxygen saturations of 96%. 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 Denies: Cirrhosis, Gastroesophageal Reflux Disease Musculoskeltal Medical History: Reports: Arthritis - BILAT KNEES Psychiatric Medical History: Denies: Bipolar Disorder, Depression Hematology: Reports: Anemia - With Denies: Bleeding Tendencies Past Surgical History Past Surgical History: Reports: Section - 4, Hysterectomy, Orthopedic Surgery - R knee Social History Information Source: Patient Lives with: Family Smoking Status: Unknown if Ever Smoked Frequency of Alcohol Use: None Drugs: None - Advance Directive Resuscitation Status: Do Not Resuscitate Family History Family History: COPD Parental Family History Reviewed: Yes Children Family History Reviewed: Yes Sibling(s) Family History Reviewed.: Yes Medication/Allergy Home Medications: No Home Medications 07/25/17 Allergies/Adverse Reactions: morphine Adverse Reaction (Verified 07/25/17 11:11) Dizziness Penicillins Adverse Reaction (Verified 07/25/17 11:11) Edema Review of Systems Constitutional: PRESENT: as per HPI, fatigue, weakness, weight gain Eyes: ABSENT: visual disturbances Ears: ABSENT: hearing changes Cardiovascular: ABSENT: chest pain, dyspnea on exertion, edema, orthropnea, palpitations Respiratory: PRESENT: as per HPI, cough, dyspnea. ABSENT: hemoptysis, sputum Gastrointestinal: PRESENT: as per HPI, abdominal pain, bloating. ABSENT: coffee ground emesis, constipation, diarrhea, dysphagia, heartburn, hematemesis , melena, nausea, vomiting Genitourinary: ABSENT: dysuria, hematuria Musculoskeletal: ABSENT: joint swelling Integumentary: ABSENT: rash, wounds Neurological: ABSENT: abnormal gait, abnormal speech, confusion, dizziness, focal weakness, syncope Psychiatric: ABSENT: anxiety, depression, homidical ideation, suicidal ideation Endocrine: ABSENT: cold intolerance, heat intolerance, polydipsia, polyuria Hematologic/Lymphatic: ABSENT: easy bleeding, easy bruising Physical Exam Vital Signs: Temp Pulse Resp BP Pulse Ox 97.5 F 18 110/97 H 92 08/06/17 03:48 08/06/17 01:01 08/06/17 01:00 08/06/17 01:01 Intake & Output 08/04/17 08/05/17 08/06/17 11:59 11:59 11:59 Output Total 300 Balance -300 Results Laboratory Results: 08/05/17 23:40 08/05/17 23:40 WBC 12.1 H RBC 4.53 Hgb 14.0 Hct 41.9 MCV 93 MCH 31.0 MCHC 33.5 RDW 18.4 H Plt Count 102 L Seg Neutrophils % Not Reportable Lymphocytes % Not Reportable Monocytes % Not Reportable Eosinophils % Not Reportable Basophils % Not Reportable Absolute Neutrophils Not Reportable Absolute Lymphocytes Not Reportable Absolute Monocytes Not Reportable Absolute Eosinophils Not Reportable Absolute Basophils Not Reportable Impressions: Chest X-Ray 08/05/17 20:02 IMPRESSION: NO ACUTE RADIOGRAPHIC FINDING IN THE CHEST. Chest/Abdomen CTA 08/05/17 20:45 IMPRESSION: Acute pulmonary emboli right lung. New mass at the right base suspicious metastatic disease. Left basilar mass is stable. Ascites hepatic metastases. Assessment & Plan - Diagnosis (1) Pulmonary embolism Qualifiers: Pulmonary embolism type: other Chronicity: acute Acute cor pulmonale presence: without acute cor pulmonale Qualified Code(s): I26.99 - Other pulmonary embolism without acute cor pulmonale Is this a current diagnosis for this admission?: Yes Plan: Telemetry admission. Complicated by hypercoagulable state with end-stage malignancy. Heparin initiated, supportive measures (2) Ascites Qualifiers: Ascites type: other type Qualified Code(s): R18.8 - Other ascites Is this a current diagnosis for this admission?: Yes Plan: Secondary to ovarian cancer with widespread metastasis, as needed paracentesis. Supportive measures (3) Ovarian cancer Qualifiers: Laterality: unspecified laterality Qualified Code(s): C56.9 - Malignant neoplasm of unspecified ovary Is this a current diagnosis for this admission?: Yes Plan: Stage IV with widespread metastasis on palliative chemotherapy. Deferred to oncologist. - Time Time Spent: 50 to 70 Minutes - Inpatient Certification Medical Necessity: Need Close Monitoring Due to Risk of Patient Decompensation
[2017-08-06 05:04] LABS: AMORPHOUS SEDIMENT,URINE TRACE /HPF; APPEARANCE,URINE CLEAR; BILIRUBIN,URINE NEGATIVE (NEGATIVE); COLOR,URINE AMBER; GLUCOSE, URINE NEGATIVE (NEGATIVE); KETONES,URINE NEGATIVE (NEGATIVE); LEUKOCYTE ESTERASE,URINE SMALL (NEGATIVE); NITRITE,URINE NEGATIVE (NEGATIVE); PROTEIN,URINE NEGATIVE (NEGATIVE); URINE SPECIFIC GRAVITY 1.053
[2017-08-06] MEDS: OXYCODONE HCL IR 5 MG TABLET PO PRN ×4 (05:05→19:07)
[2017-08-06 05:13] LABS: HEMATOCRIT 43.4 % (36.0-47.0); HEMOGLOBIN 14.3 g/dL (12.0-15.5); MEAN CORPUSCULAR HEMOGLOBIN 30.2 pg (27.0-33.4); MEAN CORPUSCULAR HGB CONC 32.9 g/dL (32.0-36.0); MEAN CORPUSCULAR VOLUME 92 fl (80-97); PLATELET COUNT 102 10^3/uL (150-450); RED BLOOD COUNT 4.73 10^6/uL (3.72-5.28)
[2017-08-06 05:48] LABS: ANION GAP 13 (5-19); BLOOD UREA NITROGEN 54 mg/dL (7-20); CALCIUM 8.2 mg/dL (8.4-10.2); CARBON DIOXIDE 18 mmol/L (22-30); CHLORIDE 96 mmol/L (98-107); CREATINE KINASE 84 U/L (30-135); GLUCOSE 117 mg/dL (75-110); POTASSIUM 4.5 mmol/L (3.6-5.0); SODIUM 127.3 mmol/L (137-145)
[2017-08-06 05:58] LABS: CREATINE KINASE MB 1.17 ng/mL (<4.55)
[2017-08-06 06:01] LABS: TROPONIN I 0.055 ng/mL
--- NOTE | 2017-08-06 08:16 | PDOC CONSULTATION ---
Consultation Consult Date: 08/06/17 Attending physician:: SRAVANTHI HILLS Consult reason:: New onset PE, stage IV ovarian ca, malignant ascitis History of Present Illness Admission Date/PCP: 08/05/17 23:39 Patient complains of: Abd distention, SOB, weakness History of Present Illness: 51-year-old female well-known to our oncology service with known history of stage IV ovarian cancer, she does have malignant ascites, about 10 days ago she had 6 L removed, recently was noted to have overt progression of disease. She was admitted for a few days at the end of May with partial small bowel obstruction. That resolved and she presented to her office, and we decided at that point to change therapy. Initially she had been treated with a course of carbo/Taxol with intraperitoneal chemotherapy, that was about 2 years ago, we began seeing her about 9 months ago and she had progression of disease at that time and we gave her standard carbo/Taxol. 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 She was on that for 3 months and unfortunately progressed against that as well. The last 3-4 weeks she has had recurrent ascites. In the last 2- 3 days she has had increasing shortness of breath and weakness. Here, she presented with abdominal distention and they removed 1.6 L, but she was persistently tachycardic and short of breath thereafter so CTA of the chest was done and this indicated bilateral PE. Labs indicated mild renal failure, so patient has been on heparin drip at present. 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 Denies: Cirrhosis, Gastroesophageal Reflux Disease Musculoskeltal Medical History: Reports: Arthritis - BILAT KNEES Psychiatric Medical History: Denies: Bipolar Disorder, Depression Hematology: Reports: Anemia - With Denies: Bleeding Tendencies Past Surgical History Past Surgical History: Reports: Section - 4, Hysterectomy, Orthopedic Surgery - R knee Social History Information Source: Patient Lives with: Family Smoking Status: Unknown if Ever Smoked Frequency of Alcohol Use: None Drugs: None - Advance Directive Resuscitation Status: Do Not Resuscitate Family History Family History: COPD Parental Family History Reviewed: Yes Children Family History Reviewed: Yes Sibling(s) Family History Reviewed.: Yes Medication/Allergy Home Medications: No Home Medications 07/25/17 Allergies/Adverse Reactions: morphine Adverse Reaction (Verified 07/25/17 11:11) Dizziness Penicillins Adverse Reaction (Verified 07/25/17 11:11) Edema Review of Systems Constitutional: PRESENT: fatigue, weakness Cardiovascular: PRESENT: dyspnea on exertion, orthropnea Gastrointestinal: PRESENT: bloating, nausea Neurological: ABSENT: abnormal gait, abnormal speech, confusion, dizziness, focal weakness, syncope Physical Exam Vital Signs: Temp Pulse Resp BP Pulse Ox 97.5 F 18 110/97 H 92 08/06/17 03:48 08/06/17 01:01 08/06/17 01:00 08/06/17 01:01 Intake & Output 08/05/17 08/06/17 08/07/17 06:59 06:59 06:59 Output Total 300 Balance -300 General appearance: PRESENT: no acute distress Head exam: PRESENT: atraumatic Mouth exam: PRESENT: dry mucosa Respiratory exam: PRESENT: clear to auscultation sheila. ABSENT: rales, rhonchi, wheezes GI/Abdominal exam: PRESENT: distended Rectal exam: PRESENT: deferred Extremities exam: PRESENT: full ROM. ABSENT: calf tenderness, clubbing, pedal edema Neurological exam: PRESENT: alert, awake, oriented to person, oriented to place , oriented to time, oriented to situation, CN II-XII grossly intact. ABSENT: motor sensory deficit Results Laboratory Results: 08/06/17 04:55 08/06/17 04:55 08/05/17 08/06/17 08/06/17 23:40 03:29 04:55 WBC 12.1 H 15.0 H RBC 4.53 4.73 Hgb 14.0 14.3 Hct 41.9 43.4 MCV 93 92 MCH 31.0 30.2 MCHC 33.5 32.9 RDW 18.4 H 18.0 H Plt Count 102 L 102 L Seg Neutrophils % Not Reportable Lymphocytes % Not Reportable Monocytes % Not Reportable Eosinophils % Not Reportable Basophils % Not Reportable Absolute Neutrophils Not Reportable Absolute Lymphocytes Not Reportable Absolute Monocytes Not Reportable Absolute Eosinophils Not Reportable Absolute Basophils Not Reportable Sodium Potassium Chloride Carbon Dioxide Anion Gap BUN Creatinine Est GFR ( Amer) Est GFR (Non-Af Amer) Glucose Calcium Urine Color LALY Urine Appearance CLEAR Urine pH 5.0 Ur Specific [place] 1.053 Urine Protein NEGATIVE Urine Glucose (UA) NEGATIVE Urine Ketones NEGATIVE Urine Blood SMALL H Urine Nitrite NEGATIVE Ur Leukocyte Esterase SMALL H Urine WBC (Auto) 37 Urine RBC (Auto) 3 08/06/17 04:55 WBC RBC Hgb Hct MCV MCH MCHC RDW Plt Count Seg Neutrophils % Lymphocytes % Monocytes % Eosinophils % Basophils % Absolute Neutrophils Absolute Lymphocytes Absolute Monocytes Absolute Eosinophils Absolute Basophils Sodium 127.3 L Potassium 4.5 Chloride 96 L Carbon Dioxide 18 L Anion Gap 13 BUN 54 H Creatinine 1.46 H Est GFR ( Amer) 45 L Est GFR (Non-Af Amer) 37 L Glucose 117 H Calcium 8.2 L Urine Color Urine Appearance Urine pH Ur Specific [place] Urine Protein Urine Glucose (UA) Urine Ketones Urine Blood Urine Nitrite Ur Leukocyte Esterase Urine WBC (Auto) Urine RBC (Auto) 08/06/17 08/06/17 04:55 04:55 Creatine Kinase 84 CK-MB (CK-2) 1.17 Troponin I 0.055 Impressions: Chest X-Ray 08/05/17 20:02 IMPRESSION: NO ACUTE RADIOGRAPHIC FINDING IN THE CHEST. Chest/Abdomen CTA 08/05/17 20:45 IMPRESSION: Acute pulmonary emboli right lung. New mass at the right base suspicious metastatic disease. Left basilar mass is stable. Ascites hepatic metastases. Status: Image reviewed by me Assessment & Plan - Diagnosis (1) Pulmonary embolism Qualifiers: Pulmonary embolism type: other Chronicity: acute Acute cor pulmonale presence: without acute cor pulmonale Qualified Code(s): I26.99 - Other pulmonary embolism without acute cor pulmonale Is this a current diagnosis for this admission?: Yes Plan: Secondary to malignancy, we will get lower extremity Doppler as well to rule out DVT, she will need to be on heparin drip until GFR improved somewhat, GFR of 30 or below is difficult to ensure that Lovenox levels can remain appropriate in the body. Would suggest another 24 hours of heparin drip and hopefully hydration would help GFR improved. (2) Ovarian cancer Qualifiers: Laterality: right Qualified Code(s): C56.1 - Malignant neoplasm of right ovary; C56.0 - Malignant neoplasm of right ovary Is this a current diagnosis for this admission?: Yes Plan: Known stage IV ovarian cancer with progression, we will start third line therapy as an outpatient with Doxil/Avastin as soon as patient is physically able to initiate therapy. (3) Abdominal pain Qualifiers: Abdominal location: right upper quadrant Qualified Code(s): R10.11 - Right upper quadrant pain Is this a current diagnosis for this admission?: Yes Plan: Secondary to progression of disease, ascites, she just had paracentesis but she probably will need more fluid removed in the next few days. We will continue oxycodone for pain. - Time Time Spent: Greater than 70 Minutes - Inpatient Certification Based on my medical assessment, after consideration of the patient's comorbidities, presenting symptoms, or acuity I expect that the services needed warrant INPATIENT care.: Yes I certify that my determination is in accordance with my understanding of Medicare's requirements for reasonable and necessary INPATIENT services [42 CFR 412.3e].: Yes Medical Necessity: Need For IV Fluids, Need For Continuous Telemetry Monitoring , Need for Pain Control, Risk of Complication if Not Cared For in Hospital
[2017-08-06] MEDS: DOCUSATE SODIUM 100 MG CAPSULE PO SCH ×2 (09:17→18:06)
[2017-08-06] MEDS: NORMAL SALINE 1000 ML 1,000 ML IV PRN ×2 (09:29→18:06)
[2017-08-06 11:44] LABS: APPEARANCE,URINE SLIGHTLY-CLOUDY; BILIRUBIN,URINE NEGATIVE (NEGATIVE); COLOR,URINE DARK YELLOW; GLUCOSE, URINE NEGATIVE (NEGATIVE); KETONES,URINE NEGATIVE (NEGATIVE); LEUKOCYTE ESTERASE,URINE LARGE (NEGATIVE); NITRITE,URINE NEGATIVE (NEGATIVE); PROTEIN,URINE NEGATIVE (NEGATIVE); URINE SPECIFIC GRAVITY 1.046
--- NOTE | 2017-08-06 21:26 | PDOC PROGRESS REPORT ---
Subjective Progress Note for:: 08/06/17 Subjective:: Feels slightly better. Still with shortness of breath, no chest pain at this time. Abdominal still feels distended, status post paracentesis with 1.6 L of fluids removal. No fever or chills. Reason For Visit: STAGE 4 OVARIAN CA W LIVER METS, ACUTE PE, ARF Physical Exam Vital Signs: Temp Pulse Resp BP Pulse Ox 97.5 F 102 H 18 116/86 H 93 08/06/17 14:46 08/06/17 19:00 08/06/17 14:46 08/06/17 14:46 08/06/17 14:46 Intake & Output 08/05/17 08/06/17 08/07/17 06:59 06:59 06:59 Output Total 300 Balance -300 Weight 60.781 kg GEN: NAD, chronically ill-appearing NECK supple, no JVD CV: RRR, NL S1S2 LUNGS: Decreased breath sounds bases with few crackles bilaterally ABDOMEN Soft, distended, NT EXTERMITIES: No e/c/c NEURO: Alert, oriented Results Laboratory Results: 08/06/17 04:55 08/06/17 04:55 08/05/17 08/06/17 08/06/17 23:40 03:29 04:55 WBC 12.1 H 15.0 H RBC 4.53 4.73 Hgb 14.0 14.3 Hct 41.9 43.4 MCV 93 92 MCH 31.0 30.2 MCHC 33.5 32.9 RDW 18.4 H 18.0 H Plt Count 102 L 102 L Seg Neutrophils % Not Reportable Lymphocytes % Not Reportable Monocytes % Not Reportable Eosinophils % Not Reportable Basophils % Not Reportable Absolute Neutrophils Not Reportable Absolute Lymphocytes Not Reportable Absolute Monocytes Not Reportable Absolute Eosinophils Not Reportable Absolute Basophils Not Reportable Sodium Potassium Chloride Carbon Dioxide Anion Gap BUN Creatinine Est GFR ( Amer) Est GFR (Non-Af Amer) Glucose Calcium Urine Color LALY Urine Appearance CLEAR Urine pH 5.0 Ur Specific [place] 1.053 Urine Protein NEGATIVE Urine Glucose (UA) NEGATIVE Urine Ketones NEGATIVE Urine Blood SMALL H Urine Nitrite NEGATIVE Ur Leukocyte Esterase SMALL H Urine WBC (Auto) 37 Urine RBC (Auto) 3 08/06/17 08/06/17 04:55 11:15 WBC RBC Hgb Hct MCV MCH MCHC RDW Plt Count Seg Neutrophils % Lymphocytes % Monocytes % Eosinophils % Basophils % Absolute Neutrophils Absolute Lymphocytes Absolute Monocytes Absolute Eosinophils Absolute Basophils Sodium 127.3 L Potassium 4.5 Chloride 96 L Carbon Dioxide 18 L Anion Gap 13 BUN 54 H Creatinine 1.46 H Est GFR ( Amer) 45 L Est GFR (Non-Af Amer) 37 L Glucose 117 H Calcium 8.2 L Urine Color DARK YELLOW Urine Appearance SLIGHTLY-CLOUDY Urine pH 5.0 Ur Specific [place] 1.046 Urine Protein NEGATIVE Urine Glucose (UA) NEGATIVE Urine Ketones NEGATIVE Urine Blood SMALL H Urine Nitrite NEGATIVE Ur Leukocyte Esterase LARGE H Urine WBC (Auto) 61 Urine RBC (Auto) 5 08/06/17 08/06/17 04:55 04:55 Creatine Kinase 84 CK-MB (CK-2) 1.17 Troponin I 0.055 Impressions: Chest X-Ray 08/05/17 20:02 IMPRESSION: NO ACUTE RADIOGRAPHIC FINDING IN THE CHEST. Chest/Abdomen CTA 08/05/17 20:45 IMPRESSION: Acute pulmonary emboli right lung. New mass at the right base suspicious metastatic disease. Left basilar mass is stable. Ascites hepatic metastases. Assessment & Plan - Diagnosis (1) Pulmonary embolism Qualifiers: Pulmonary embolism type: other Chronicity: acute Acute cor pulmonale presence: without acute cor pulmonale Qualified Code(s): I26.99 - Other pulmonary embolism without acute cor pulmonale Is this a current diagnosis for this admission?: Yes Plan: Continue heparin, O2, supportive care. (2) Dyspnea Qualifiers: Dyspnea type: unspecified Qualified Code(s): R06.00 - Dyspnea, unspecified Is this a current diagnosis for this admission?: Yes Plan: Continue O2 and to monitor patient. (3) Hyponatremia Is this a current diagnosis for this admission?: Yes Plan: Continue to monitor. (4) Ovarian cancer Qualifiers: Laterality: right Qualified Code(s): C56.1 - Malignant neoplasm of right ovary; C56.0 - Malignant neoplasm of right ovary Is this a current diagnosis for this admission?: Yes Plan: Oncology follow-up appreciated.
[2017-08-06 22:47] LABS: HEMATOCRIT 40.1 % (36.0-47.0); HEMOGLOBIN 13.2 g/dL (12.0-15.5); MEAN CORPUSCULAR HEMOGLOBIN 30.4 pg (27.0-33.4); MEAN CORPUSCULAR HGB CONC 32.9 g/dL (32.0-36.0); MEAN CORPUSCULAR VOLUME 92 fl (80-97); RED BLOOD COUNT 4.35 10^6/uL (3.72-5.28); WHITE BLOOD COUNT 17.5 10^3/uL (4.0-10.5)
[2017-08-06 22:52] LABS: ANION GAP 11 (5-19); BLOOD UREA NITROGEN 54 mg/dL (7-20); CALCIUM 7.5 mg/dL (8.4-10.2); CARBON DIOXIDE 20 mmol/L (22-30); CHLORIDE 96 mmol/L (98-107); GLUCOSE 104 mg/dL (75-110); POTASSIUM 4.9 mmol/L (3.6-5.0)
[2017-08-06 23:03] LABS: ABSOLUTE LYMPHOCYTES# (MANUAL) 5.4 10^3/uL (0.5-4.7); ABSOLUTE MONOCYTES # (MANUAL) 1.4 10^3/uL (0.1-1.4); ABSOLUTE NEUTROPHILS# (MANUAL) 10.7 10^3/uL (1.7-8.2); BAND NEUTROPHILS % (MANUAL) 3 % (3-5); BASOPHILS % (MANUAL) 0 % (0-2); EOSINOPHILS % (MANUAL) 0 % (0-6); LYMPHOCYTES % (MANUAL) 31 % (13-45); MONOCYTES % (MANUAL) 8 % (3-13); SEGMENTED NEUTROPHILS % (MAN) 58 % (42-78); TOTAL CELLS COUNTED 100
[2017-08-06 23:05] LABS: TOXIC GRANULATION SLIGHT
[2017-08-06 23:06] LABS: ANISOCYTOSIS 2+; PLATELET COMMENT DECREASED; PLATELET COUNT 94 10^3/uL (150-450); POIKILOCYTOSIS 1+
--- NOTE | 2017-08-07 08:20 | PDOC PROGRESS REPORT ---
Subjective Progress Note for:: 08/07/17 Subjective:: Pt still w/ considerable distention, feels very tight, urine is darker some increased freq. Today planning paracentesis, U/s GUIDED, start levaquin, after paracentesis start lovenox 1mg/kg BID. Will also start pepcid for reflux. Reason For Visit: STAGE 4 OVARIAN CA W LIVER METS, ACUTE PE, ARF Physical Exam Vital Signs: Temp Pulse Resp BP Pulse Ox 97.4 F 100 18 91/60 L 95 08/07/17 08:00 08/07/17 08:00 08/07/17 08:00 08/07/17 08:00 08/07/17 08:00 Intake & Output 08/06/17 08/07/17 08/08/17 06:59 06:59 06:59 Intake Total 2953 Output Total 300 Balance -300 2953 Weight 60.781 kg 63.3 kg General appearance: PRESENT: no acute distress, well-developed, well-nourished Head exam: PRESENT: atraumatic, normocephalic Eye exam: PRESENT: conjunctiva pink, EOMI, PERRLA. ABSENT: scleral icterus Ear exam: PRESENT: normal external ear exam Mouth exam: PRESENT: moist, tongue midline Neck exam: ABSENT: carotid bruit, JVD, lymphadenopathy, thyromegaly Respiratory exam: PRESENT: clear to auscultation sheila. ABSENT: rales, rhonchi, wheezes Cardiovascular exam: PRESENT: RRR. ABSENT: diastolic murmur, rubs, systolic murmur Pulses: PRESENT: normal dorsalis pedis pul Vascular exam: PRESENT: normal capillary refill GI/Abdominal exam: PRESENT: normal bowel sounds, soft. ABSENT: distended, guarding, mass, organolmegaly, rebound, tenderness Rectal exam: PRESENT: deferred Extremities exam: PRESENT: full ROM. ABSENT: calf tenderness, clubbing, pedal edema Neurological exam: PRESENT: alert, awake, oriented to person, oriented to place , oriented to time, oriented to situation, CN II-XII grossly intact. ABSENT: motor sensory deficit Psychiatric exam: PRESENT: appropriate affect, normal mood. ABSENT: homicidal ideation, suicidal ideation Skin exam: PRESENT: dry, intact, warm. ABSENT: cyanosis, rash Results Laboratory Results: 08/06/17 22:10 08/06/17 22:10 08/06/17 08/06/17 08/06/17 11:15 22:10 22:10 WBC 17.5 H RBC 4.35 Hgb 13.2 Hct 40.1 MCV 92 MCH 30.4 MCHC 32.9 RDW 18.0 H Plt Count 94 L Seg Neutrophils % Not Reportable Lymphocytes % Not Reportable Monocytes % Not Reportable Eosinophils % Not Reportable Basophils % Not Reportable Absolute Neutrophils Not Reportable Absolute Lymphocytes Not Reportable Absolute Monocytes Not Reportable Absolute Eosinophils Not Reportable Absolute Basophils Not Reportable Sodium 127.0 L Potassium 4.9 Chloride 96 L Carbon Dioxide 20 L Anion Gap 11 BUN 54 H Creatinine 1.47 H Est GFR ( Amer) 45 L Est GFR (Non-Af Amer) 37 L Glucose 104 Calcium 7.5 L Urine Color DARK YELLOW Urine Appearance SLIGHTLY-CLOUDY Urine pH 5.0 Ur Specific [place] 1.046 Urine Protein NEGATIVE Urine Glucose (UA) NEGATIVE Urine Ketones NEGATIVE Urine Blood SMALL H Urine Nitrite NEGATIVE Ur Leukocyte Esterase LARGE H Urine WBC (Auto) 61 Urine RBC (Auto) 5 08/06/17 08/06/17 04:55 04:55 Creatine Kinase 84 CK-MB (CK-2) 1.17 Troponin I 0.055 Impressions: Chest X-Ray 08/05/17 20:02 IMPRESSION: NO ACUTE RADIOGRAPHIC FINDING IN THE CHEST. Chest/Abdomen CTA 08/05/17 20:45 IMPRESSION: Acute pulmonary emboli right lung. New mass at the right base suspicious metastatic disease. Left basilar mass is stable. Ascites hepatic metastases. Assessment & Plan - Diagnosis (1) Pulmonary embolism Qualifiers: Pulmonary embolism type: other Chronicity: acute Acute cor pulmonale presence: without acute cor pulmonale Qualified Code(s): I26.99 - Other pulmonary embolism without acute cor pulmonale Is this a current diagnosis for this admission?: Yes Plan: Plan as above (2) Ovarian cancer Qualifiers: Laterality: right Qualified Code(s): C56.1 - Malignant neoplasm of right ovary; C56.0 - Malignant neoplasm of right ovary Is this a current diagnosis for this admission?: Yes Plan: Chemo will start as oupt likely next week (3) Abdominal pain Qualifiers: Abdominal location: right upper quadrant Qualified Code(s): R10.11 - Right upper quadrant pain Is this a current diagnosis for this admission?: Yes Plan: Cont current pain control - Time Time Spent with patient: 35 or more minutes - Inpatient Certification Based on my medical assessment, after consideration of the patient's comorbidities, presenting symptoms, or acuity I expect that the services needed warrant INPATIENT care.: Yes I certify that my determination is in accordance with my understanding of Medicare's requirements for reasonable and necessary INPATIENT services [42 CFR 412.3e].: Yes Medical Necessity: Need for Surgery, Risk of Complication if Not Cared For in Hospital
[2017-08-07] MEDS ORDERED: ALBUMIN HUMAN 100 ML IV PRN (08:46)
[2017-08-07] MEDS: FAMOTIDINE 20 MG TABLET PO SCH (11:04)
[2017-08-07] MEDS: LEVOFLOXACIN 500 MG TABLET PO SCH (11:04)
[2017-08-07] MEDS: DOCUSATE SODIUM 100 MG CAPSULE PO SCH ×2 (11:05→17:31)
[2017-08-07 11:28] LABS: INTERNATIONAL RATION (INR) 1.14; PROTHROMBIN TIME 15.4 SEC (11.4-15.4)
--- NOTE | 2017-08-07 12:30 | Physician Advisory Note ---
Physician Advisor ProgressNote .: Pursuant to the plan for [facility], I have reviewed the medical record for this patient. Physician Advisor Statement: Please consider documenting, if you agree: 1. "FERCHO, likely due to , baseline Cr was 0.8 just 2 weeks ago" 2. "Acute hyponatremia, likely due to " Thanks! CK
--- NOTE | 2017-08-07 14:22 | RADIOLOGY REPORT (SQ) ---
EXAM DESCRIPTION: U/S ABD PARACENTESIS COMPLETED DATE/TIME: 08/07/2017 2:12 pm REASON FOR STUDY: MALIGNANT ASCITIS COMPARISON None. LIMITATIONS: None. PROCEDURE: After obtaining informed consent, the patient was brought to the ultrasound suite. The p rocedure was performed with the patient on a gurney. Ultrasound was used to identify a prominent poc ket of ascites in the left lower quadrant. An appropriate access site was selected. The patient was prepped and draped in usual sterile fashion. The access site was anesthetized with 3 mL 1% lidocai ne. A [id number] needle was advanced into the fluid. After aspiration of fluid the needle, the catheter was advanced off the needle into the fluid. A total of 5,700 mL of straw fluid was removed . The patient tolerated the procedure well left the department in satisfactory condition. IMPRESSION: Successful ultrasound-guided paracentesis COMMENT: Patient medication list reviewed: Yes- Quality ID# [id number]:Eligible professional attests to doc umenting in the medical record they obtained, updated, or reviewed the patient's current medications. Quality ID #[id number]: The patient was prepped and draped using maximum sterile barrier technique including cap, mask, sterile gown, sterile gloves, a large sterile sheet, hand hygiene, and 2% Chlorhexidine fo r cutaneous antisepsis. When ultrasound is used, sterile ultrasound techniques are followed requiring sterile gel and sterile probes. Quality ID #[id number]: Final reports for procedures using fluoroscopy that document radiation exposure brittny elaine, or exposure time and number of fluorographic images (if radiation exposure indices are not avail able) TECHNICAL DOCUMENTATION: JOB ID: [id number] In 2010 [employer] All Rights Reserved
[2017-08-07] MEDS ORDERED: MAGNESIUM HYDROXIDE SUSP 30 ML UDCUP PO PRN (14:30)
[2017-08-07] MEDS ORDERED: ENOXAPARIN SODIUM INJ 60 MG/0.6 ML DISP.SYRIN SUBCUT ONE (14:30)
[2017-08-07] MEDS ORDERED: ACETAMINOPHEN 325 MG TABLET PO PRN (14:30)
[2017-08-07] MEDS ORDERED: CALCIUM CARBONATE 500 MG TAB.CHEW PO PRN (14:30)
[2017-08-07] MEDS ORDERED: MAG HYDROX/AL HYDROX/SIMETH SUSP 30 ML UDCUP PO PRN (14:30)
[2017-08-07] MEDS ORDERED: ENOXAPARIN SODIUM INJ 60 MG/0.6 ML DISP.SYRIN SUBCUT SCH (18:00)
--- NOTE | 2017-08-07 19:09 | XCELERA REPORT ---
[address] [address] Lower Extremity Venous Evaluation Name: CHARITY DESIR Age: 51 yrs Gender: Female : 1965 Patient Status: Inpatient Patient Location: [facility]^A Study Date: 08/07/2017 09:23 AM Procedure: Color flow and duplex imaging bilaterally of the veins of the lower extremities as well as the Common Femoral veins. Reason For Study: SWELLING Ordering Physician: BARBI PHIPPS Performed By: Taylor Small Right Sided Venous Evaluation Abnormal filling with no compression or flow in the Gastrocnemius vein. Also in the mid Greater Saphenous vein. Otherwise normal vessel filling wall to wall, compression and augmentation as well as Colour flow . Left Sided Venous Evaluation Abnormal filling with no compression or flow in the Femoral vein. Interpretation Summary Bilateral lower extremity DVT. Superficial phlebitis also . In this patient being treated for Pulmonary embolism. : BARBI PHIPPS > Cole Hall
--- NOTE | 2017-08-07 21:18 | PDOC PROGRESS REPORT ---
Subjective Progress Note for:: 08/07/17 Subjective:: Feels tired. Status post repeat paracentesis today. Denies abdominal pain at this time. Shortness of breath slightly better. No fever or chills. Reason For Visit: STAGE 4 OVARIAN CA W LIVER METS, ACUTE PE, ARF Physical Exam Vital Signs: Temp Pulse Resp BP Pulse Ox 98.0 F 80 16 100/72 97 08/07/17 20:00 08/07/17 20:00 08/07/17 20:00 08/07/17 20:00 08/07/17 20:00 Intake & Output 08/06/17 08/07/17 08/08/17 06:59 06:59 06:59 Intake Total 2953 2540 Output Total 300 Balance -300 2953 2540 Weight 60.781 kg 63.3 kg GEN: NAD, chronically ill-appearing NECK supple, no JVD CV: RRR, NL S1S2 LUNGS: Decreased breath sounds bases with few crackles bilaterally ABDOMEN Soft, nondistended, nontender EXTERMITIES: No e/c/c NEURO: Alert, oriented Results Laboratory Results: 08/06/17 22:10 08/06/17 22:10 08/06/17 08/06/17 22:10 22:10 WBC 17.5 H RBC 4.35 Hgb 13.2 Hct 40.1 MCV 92 MCH 30.4 MCHC 32.9 RDW 18.0 H Plt Count 94 L Seg Neutrophils % Not Reportable Lymphocytes % Not Reportable Monocytes % Not Reportable Eosinophils % Not Reportable Basophils % Not Reportable Absolute Neutrophils Not Reportable Absolute Lymphocytes Not Reportable Absolute Monocytes Not Reportable Absolute Eosinophils Not Reportable Absolute Basophils Not Reportable Sodium 127.0 L Potassium 4.9 Chloride 96 L Carbon Dioxide 20 L Anion Gap 11 BUN 54 H Creatinine 1.47 H Est GFR ( Amer) 45 L Est GFR (Non-Af Amer) 37 L Glucose 104 Calcium 7.5 L 08/06/17 08/06/17 04:55 04:55 Creatine Kinase 84 CK-MB (CK-2) 1.17 Troponin I 0.055 Impressions: Chest X-Ray 08/05/17 20:02 IMPRESSION: NO ACUTE RADIOGRAPHIC FINDING IN THE CHEST. Chest/Abdomen CTA 08/05/17 20:45 IMPRESSION: Acute pulmonary emboli right lung. New mass at the right base suspicious metastatic disease. Left basilar mass is stable. Ascites hepatic metastases. Paracentesis Ultrasound 08/07/17 00:00 IMPRESSION: Successful ultrasound-guided paracentesis Assessment & Plan - Diagnosis (1) Pulmonary embolism Qualifiers: Pulmonary embolism type: other Chronicity: acute Acute cor pulmonale presence: without acute cor pulmonale Qualified Code(s): I26.99 - Other pulmonary embolism without acute cor pulmonale Is this a current diagnosis for this admission?: Yes Plan: Continue anticoagulation. Heparin now switched to enoxaparin. Continue O2, supportive care. (2) Dyspnea Qualifiers: Dyspnea type: unspecified Qualified Code(s): R06.00 - Dyspnea, unspecified Is this a current diagnosis for this admission?: Yes Plan: Secondary to PE. Continue O2 and to monitor patient. (3) Ovarian cancer Qualifiers: Laterality: right Qualified Code(s): C56.1 - Malignant neoplasm of right ovary; C56.0 - Malignant neoplasm of right ovary Is this a current diagnosis for this admission?: Yes Plan: Oncology follow-up appreciated. (4) FERCHO (acute kidney injury) Is this a current diagnosis for this admission?: Yes Plan: Likely secondary to dehydration/prerenal secondary to ascites secondary to ovarian cancer. (5) Acute hyponatremia Is this a current diagnosis for this admission?: Yes Plan: Likely secondary to dehydration/inadequate. Continue normal saline IV. Continue to monitor (6) Ascites Qualifiers: Ascites type: other type Qualified Code(s): R18.8 - Other ascites Is this a current diagnosis for this admission?: Yes Plan: Secondary to ovarian cancer. Status post repeat paracentesis with additional 5.7 L of fluid removed.
[2017-08-07 23:03] LABS: HEMATOCRIT 35.7 % (36.0-47.0); HEMOGLOBIN 11.9 g/dL (12.0-15.5); MEAN CORPUSCULAR HEMOGLOBIN 30.7 pg (27.0-33.4); MEAN CORPUSCULAR HGB CONC 33.4 g/dL (32.0-36.0); MEAN CORPUSCULAR VOLUME 92 fl (80-97); RED BLOOD COUNT 3.87 10^6/uL (3.72-5.28); RED CELL DISTRIBUTION WIDTH 18.6 % (11.5-14.0); WHITE BLOOD COUNT 19.9 10^3/uL (4.0-10.5)
[2017-08-07 23:15] LABS: ANION GAP 13 (5-19); BLOOD UREA NITROGEN 50 mg/dL (7-20); CALCIUM 7.5 mg/dL (8.4-10.2); CARBON DIOXIDE 15 mmol/L (22-30); CHLORIDE 101 mmol/L (98-107); GLUCOSE 100 mg/dL (75-110); POTASSIUM 4.8 mmol/L (3.6-5.0); SODIUM 128.6 mmol/L (137-145)
[2017-08-07] MEDS: ENOXAPARIN SODIUM INJ 60 MG/0.6 ML DISP.SYRIN SUBCUT SCH (23:18)
[2017-08-07] MEDS: NORMAL SALINE 1000 ML 1,000 ML IV PRN (23:18)
[2017-08-07 23:27] LABS: PLATELET COUNT 87 10^3/uL (150-450)
[2017-08-07 23:30] LABS: ABSOLUTE LYMPHOCYTES# (MANUAL) 0.8 10^3/uL (0.5-4.7); ABSOLUTE MONOCYTES # (MANUAL) 1.6 10^3/uL (0.1-1.4); ABSOLUTE NEUTROPHILS# (MANUAL) 17.5 10^3/uL (1.7-8.2); BASOPHILS % (MANUAL) 0 % (0-2); EOSINOPHILS % (MANUAL) 0 % (0-6); LYMPHOCYTES % (MANUAL) 4 % (13-45); MONOCYTES % (MANUAL) 8 % (3-13); SEGMENTED NEUTROPHILS % (MAN) 88 % (42-78); TOTAL CELLS COUNTED 100
[2017-08-07 23:38] LABS: PLATELET COMMENT DECREASED
[2017-08-07 23:39] LABS: ANISOCYTOSIS 1+; HYPOCHROMASIA SLIGHT; POLYCHROMASIA SLIGHT
[2017-08-08 05:33] LABS: HEMATOCRIT 38.8 % (36.0-47.0); MEAN CORPUSCULAR HEMOGLOBIN 30.9 pg (27.0-33.4); MEAN CORPUSCULAR HGB CONC 33.5 g/dL (32.0-36.0); MEAN CORPUSCULAR VOLUME 92 fl (80-97); WHITE BLOOD COUNT 16.4 10^3/uL (4.0-10.5)
[2017-08-08] MEDS: ONDANSETRON HCL INJ/PF 4 MG/2 ML SDV IV PRN (05:55)
[2017-08-08] MEDS: OXYCODONE HCL IR 5 MG TABLET PO PRN ×2 (05:55→19:23)
[2017-08-08 06:06] LABS: PLATELET COUNT 73 10^3/uL (150-450)
--- NOTE | 2017-08-08 08:27 | PDOC PROGRESS REPORT ---
Subjective Progress Note for:: 08/08/17 Subjective:: Still fairly weak this am, but does note abd feels better, she can drink liquids and boost but can't really eat much else, feels nauseas this am Reason For Visit: STAGE 4 OVARIAN CA W LIVER METS, ACUTE PE, ARF Physical Exam Vital Signs: Temp Pulse Resp BP Pulse Ox 97.6 F 85 12 111/70 97 08/08/17 03:45 08/08/17 03:45 08/08/17 03:45 08/08/17 03:45 08/08/17 03:45 Intake & Output 08/07/17 08/08/17 08/09/17 06:59 06:59 06:59 Intake Total 2953 4740 Balance 2953 4740 Weight 63.3 kg 62.6 kg General appearance: PRESENT: no acute distress, well-developed, well-nourished Head exam: PRESENT: atraumatic, normocephalic Eye exam: PRESENT: conjunctiva pink, EOMI, PERRLA. ABSENT: scleral icterus Ear exam: PRESENT: normal external ear exam Mouth exam: PRESENT: moist, tongue midline Neck exam: ABSENT: carotid bruit, JVD, lymphadenopathy, thyromegaly Respiratory exam: PRESENT: clear to auscultation sheila. ABSENT: rales, rhonchi, wheezes Cardiovascular exam: PRESENT: RRR. ABSENT: diastolic murmur, rubs, systolic murmur Pulses: PRESENT: normal dorsalis pedis pul Vascular exam: PRESENT: normal capillary refill GI/Abdominal exam: PRESENT: normal bowel sounds, soft. ABSENT: distended, guarding, mass, organolmegaly, rebound, tenderness Rectal exam: PRESENT: deferred Extremities exam: PRESENT: full ROM. ABSENT: calf tenderness, clubbing, pedal edema Neurological exam: PRESENT: alert, awake, oriented to person, oriented to place , oriented to time, oriented to situation, CN II-XII grossly intact. ABSENT: motor sensory deficit Psychiatric exam: PRESENT: appropriate affect, normal mood. ABSENT: homicidal ideation, suicidal ideation Skin exam: PRESENT: dry, intact, warm. ABSENT: cyanosis, rash Results Laboratory Results: 08/08/17 04:10 08/07/17 22:45 08/07/17 08/07/17 08/08/17 22:45 22:45 04:10 WBC 19.9 H 16.4 H RBC 3.87 4.20 Hgb 11.9 L 13.0 Hct 35.7 L 38.8 MCV 92 92 MCH 30.7 30.9 MCHC 33.4 33.5 RDW 18.6 H 19.0 H Plt Count 87 L 73 L Seg Neutrophils % Not Reportable Lymphocytes % Not Reportable Monocytes % Not Reportable Eosinophils % Not Reportable Basophils % Not Reportable Absolute Neutrophils Not Reportable Absolute Lymphocytes Not Reportable Absolute Monocytes Not Reportable Absolute Eosinophils Not Reportable Absolute Basophils Not Reportable Sodium 128.6 L Potassium 4.8 Chloride 101 Carbon Dioxide 15 L Anion Gap 13 BUN 50 H Creatinine 1.29 H Est GFR ( Amer) 52 L Est GFR (Non-Af Amer) 43 L Glucose 100 Calcium 7.5 L 08/06/17 08/06/17 04:55 04:55 Creatine Kinase 84 CK-MB (CK-2) 1.17 Troponin I 0.055 Impressions: Chest X-Ray 08/05/17 20:02 IMPRESSION: NO ACUTE RADIOGRAPHIC FINDING IN THE CHEST. Chest/Abdomen CTA 08/05/17 20:45 IMPRESSION: Acute pulmonary emboli right lung. New mass at the right base suspicious metastatic disease. Left basilar mass is stable. Ascites hepatic metastases. Paracentesis Ultrasound 08/07/17 00:00 IMPRESSION: Successful ultrasound-guided paracentesis Assessment & Plan - Diagnosis (1) Pulmonary embolism Qualifiers: Pulmonary embolism type: other Chronicity: acute Acute cor pulmonale presence: without acute cor pulmonale Qualified Code(s): I26.99 - Other pulmonary embolism without acute cor pulmonale Is this a current diagnosis for this admission?: Yes Plan: Con't lovenox. Will need lovenox on d/c also d/w hospitalist (2) Ovarian cancer Qualifiers: Laterality: right Qualified Code(s): C56.1 - Malignant neoplasm of right ovary; C56.0 - Malignant neoplasm of right ovary Is this a current diagnosis for this admission?: Yes Plan: Would like to initiate 3rd line rx as outpt, we will see pt next week (3) Abdominal pain Qualifiers: Abdominal location: right upper quadrant Qualified Code(s): R10.11 - Right upper quadrant pain Is this a current diagnosis for this admission?: Yes Plan: Better, con't current pain regimen - Time Time Spent with patient: 35 or more minutes Disposition: D/c home either today if pt can walk and is not too deconditioned, or tomorrow if another day hydration needed. Will need lovenox, phenergan, zofran, pepcid on d/c - Inpatient Certification Based on my medical assessment, after consideration of the patient's comorbidities, presenting symptoms, or acuity I expect that the services needed warrant INPATIENT care.: Yes I certify that my determination is in accordance with my understanding of Medicare's requirements for reasonable and necessary INPATIENT services [42 CFR 412.3e].: Yes Medical Necessity: Need For IV Fluids
[2017-08-08] MEDS: DOCUSATE SODIUM 100 MG CAPSULE PO SCH ×2 (09:56→18:43)
[2017-08-08] MEDS: LEVOFLOXACIN 500 MG TABLET PO SCH (09:57)
[2017-08-08] MEDS: FAMOTIDINE 20 MG TABLET PO SCH (09:57)
[2017-08-08] MEDS: ENOXAPARIN SODIUM INJ 60 MG/0.6 ML DISP.SYRIN SUBCUT SCH ×2 (15:44→22:37)
--- NOTE | 2017-08-08 17:49 | PDOC PROGRESS REPORT ---
Subjective Progress Note for:: 08/08/17 Subjective:: Feels "rough" today. Feels tired and weak. Still with nausea and vomiting. Does not feel up to go home yet. Can hardly eat or keep much fluid down. No chest pain or palpitation. There is diet with minimal IV fluids. Denies abdominal pain. Reason For Visit: STAGE 4 OVARIAN CA W LIVER METS, ACUTE PE, ARF Physical Exam Vital Signs: Temp Pulse Resp BP Pulse Ox 97.7 F 89 17 129/65 H 98 08/08/17 16:00 08/08/17 16:00 08/08/17 16:00 08/08/17 16:00 08/08/17 16:33 Intake & Output 08/07/17 08/08/17 08/09/17 06:59 06:59 06:59 Intake Total 2953 4740 Balance 2953 4740 Weight 63.3 kg 62.6 kg GEN: NAD, chronically ill-appearing NECK supple, no JVD CV: RRR, NL S1S2 LUNGS: Decreased breath sounds bases with few crackles bilaterally ABDOMEN Soft, nondistended, nontender EXTERMITIES: No e/c/c NEURO: Alert, oriented Results Laboratory Results: 08/08/17 04:10 08/07/17 22:45 08/07/17 08/07/17 08/08/17 22:45 22:45 04:10 WBC 19.9 H 16.4 H RBC 3.87 4.20 Hgb 11.9 L 13.0 Hct 35.7 L 38.8 MCV 92 92 MCH 30.7 30.9 MCHC 33.4 33.5 RDW 18.6 H 19.0 H Plt Count 87 L 73 L Seg Neutrophils % Not Reportable Lymphocytes % Not Reportable Monocytes % Not Reportable Eosinophils % Not Reportable Basophils % Not Reportable Absolute Neutrophils Not Reportable Absolute Lymphocytes Not Reportable Absolute Monocytes Not Reportable Absolute Eosinophils Not Reportable Absolute Basophils Not Reportable Sodium 128.6 L Potassium 4.8 Chloride 101 Carbon Dioxide 15 L Anion Gap 13 BUN 50 H Creatinine 1.29 H Est GFR ( Amer) 52 L Est GFR (Non-Af Amer) 43 L Glucose 100 Calcium 7.5 L 08/06/17 08/06/17 04:55 04:55 Creatine Kinase 84 CK-MB (CK-2) 1.17 Troponin I 0.055 Impressions: Chest X-Ray 08/05/17 20:02 IMPRESSION: NO ACUTE RADIOGRAPHIC FINDING IN THE CHEST. Chest/Abdomen CTA 08/05/17 20:45 IMPRESSION: Acute pulmonary emboli right lung. New mass at the right base suspicious metastatic disease. Left basilar mass is stable. Ascites hepatic metastases. Paracentesis Ultrasound 08/07/17 00:00 IMPRESSION: Successful ultrasound-guided paracentesis Assessment & Plan - Diagnosis (1) Pulmonary embolism Qualifiers: Pulmonary embolism type: other Chronicity: acute Acute cor pulmonale presence: without acute cor pulmonale Qualified Code(s): I26.99 - Other pulmonary embolism without acute cor pulmonale Is this a current diagnosis for this admission?: Yes Plan: Continue anticoagulation. Heparin was switched to enoxaparin 08/07/17 on tolerating. Continue O2, supportive care. (2) Dyspnea Qualifiers: Dyspnea type: unspecified Qualified Code(s): R06.00 - Dyspnea, unspecified Is this a current diagnosis for this admission?: Yes Plan: Secondary to PE. Continue O2 and to monitor patient. (3) Ovarian cancer Qualifiers: Laterality: right Qualified Code(s): C56.1 - Malignant neoplasm of right ovary; C56.0 - Malignant neoplasm of right ovary Is this a current diagnosis for this admission?: Yes Plan: Oncology follow-up appreciated. Plan for chemo next week as outpatient. (4) FERCHO (acute kidney injury) Is this a current diagnosis for this admission?: Yes Plan: Likely secondary to dehydration/prerenal secondary to ascites secondary to ovarian cancer. Slow improvement. Continue IV fluids. (5) Acute hyponatremia Is this a current diagnosis for this admission?: Yes Plan: Likely secondary to dehydration/inadequate. Continue normal saline IV. Continue to monitor (6) Ascites Qualifiers: Ascites type: other type Qualified Code(s): R18.8 - Other ascites Is this a current diagnosis for this admission?: Yes (7) Anorexia Is this a current diagnosis for this admission?: Yes Plan: Likely secondary to metastatic cancer. Continue IV fluids for now, antiemetics as needed, supportive care.
[2017-08-09] MEDS: OXYCODONE HCL IR 5 MG TABLET PO PRN ×2 (07:23→19:25)
[2017-08-09] MEDS: ONDANSETRON HCL INJ/PF 4 MG/2 ML SDV IV PRN ×2 (07:23→19:25)
[2017-08-09 07:56] LABS: HEMATOCRIT 37.8 % (36.0-47.0); HEMOGLOBIN 12.4 g/dL (12.0-15.5); MEAN CORPUSCULAR HEMOGLOBIN 30.7 pg (27.0-33.4); MEAN CORPUSCULAR HGB CONC 32.8 g/dL (32.0-36.0); MEAN CORPUSCULAR VOLUME 94 fl (80-97); RED BLOOD COUNT 4.04 10^6/uL (3.72-5.28); WHITE BLOOD COUNT 12.2 10^3/uL (4.0-10.5)
[2017-08-09 08:01] LABS: ALANINE AMINOTRANSFERASE 94 U/L (9-52); ALBUMIN 1.9 g/dL (3.5-5.0); ALKALINE PHOSPHATASE 960 U/L (38-126); ANION GAP 9 (5-19); ASPARTATE AMINO TRANSFERASE 228 U/L (14-36); BILIRUBIN,DIRECT 2.7 mg/dL (0.0-0.4); BLOOD UREA NITROGEN 33 mg/dL (7-20); CALCIUM 7.6 mg/dL (8.4-10.2); CARBON DIOXIDE 17 mmol/L (22-30); CHLORIDE 107 mmol/L (98-107); GLUCOSE 74 mg/dL (75-110); POTASSIUM 4.1 mmol/L (3.6-5.0); SODIUM 132.8 mmol/L (137-145); TOTAL PROTEIN 4.4 g/dL (6.3-8.2)
[2017-08-09] MEDS: NORMAL SALINE 1000 ML 1,000 ML IV PRN (08:05)
[2017-08-09 09:35] LABS: PLATELET COUNT 82 10^3/uL (150-450)
[2017-08-09 09:37] LABS: ABSOLUTE LYMPHOCYTES# (MANUAL) 0.6 10^3/uL (0.5-4.7); ABSOLUTE MONOCYTES # (MANUAL) 0.9 10^3/uL (0.1-1.4); ABSOLUTE NEUTROPHILS# (MANUAL) 10.7 10^3/uL (1.7-8.2); BAND NEUTROPHILS % (MANUAL) 1 % (3-5); BASOPHILS % (MANUAL) 0 % (0-2); EOSINOPHILS % (MANUAL) 0 % (0-6); LYMPHOCYTES % (MANUAL) 5 % (13-45); MONOCYTES % (MANUAL) 7 % (3-13); SEGMENTED NEUTROPHILS % (MAN) 87 % (42-78); TOTAL CELLS COUNTED 100
[2017-08-09 09:48] LABS: ANISOCYTOSIS 2+; PLATELET COMMENT DECREASED; POLYCHROMASIA SLIGHT; TOXIC GRANULATION 2+; TOXIC VACUOLATION PRESENT
[2017-08-09] MEDS: DOCUSATE SODIUM 100 MG CAPSULE PO SCH ×2 (09:57→17:20)
[2017-08-09] MEDS: LEVOFLOXACIN 500 MG TABLET PO SCH (09:57)
[2017-08-09] MEDS: FAMOTIDINE 20 MG TABLET PO SCH (09:58)
--- NOTE | 2017-08-09 11:25 | PDOC PROGRESS REPORT ---
Subjective Progress Note for:: 08/09/17 Subjective:: Patient states that overnight, she could not stop vomiting. She is trying to drink ensure. She denies having a recent BM. No significant abdominal pain. ROS: No chest pain . No dyspnea. She is very weak. Reason For Visit: THROMBOCYTOPENIA,AUTOIMMUNE HEPATITIS,ANASARCA Physical Exam Vital Signs: Temp Pulse Resp BP Pulse Ox 97.7 F 85 16 108/92 H 99 08/09/17 08:22 08/09/17 08:22 08/09/17 08:22 08/09/17 08:22 08/09/17 08:22 Intake & Output 08/08/17 08/09/17 08/10/17 06:59 06:59 06:59 Intake Total 4740 5424 Balance 4740 5424 Weight 62.6 kg 65.6 kg General appearance: PRESENT: no acute distress Mouth exam: PRESENT: dry mucosa Respiratory exam: PRESENT: clear to auscultation sheila Cardiovascular exam: PRESENT: RRR GI/Abdominal exam: PRESENT: hypoactive bowel sounds, soft. ABSENT: tenderness Extremities exam: ABSENT: pedal edema Results Laboratory Results: 08/09/17 06:55 08/09/17 06:55 08/09/17 08/09/17 06:55 06:55 WBC 12.2 H RBC 4.04 Hgb 12.4 Hct 37.8 MCV 94 MCH 30.7 MCHC 32.8 RDW 19.0 H Plt Count 82 L Seg Neutrophils % Not Reportable Lymphocytes % Not Reportable Monocytes % Not Reportable Eosinophils % Not Reportable Basophils % Not Reportable Absolute Neutrophils Not Reportable Absolute Lymphocytes Not Reportable Absolute Monocytes Not Reportable Absolute Eosinophils Not Reportable Absolute Basophils Not Reportable Sodium 132.8 L Potassium 4.1 Chloride 107 Carbon Dioxide 17 L Anion Gap 9 BUN 33 H Creatinine 0.99 Est GFR ( Amer) > 60 Est GFR (Non-Af Amer) 59 L Glucose 74 L Calcium 7.6 L Total Bilirubin 3.0 H AST 228 H ALT 94 H Alkaline Phosphatase 960 H Total Protein 4.4 L Albumin 1.9 L 08/06/17 08/06/17 04:55 04:55 Creatine Kinase 84 CK-MB (CK-2) 1.17 Troponin I 0.055 Impressions: Chest X-Ray 08/05/17 20:02 IMPRESSION: NO ACUTE RADIOGRAPHIC FINDING IN THE CHEST. Chest/Abdomen CTA 08/05/17 20:45 IMPRESSION: Acute pulmonary emboli right lung. New mass at the right base suspicious metastatic disease. Left basilar mass is stable. Ascites hepatic metastases. Paracentesis Ultrasound 08/07/17 00:00 IMPRESSION: Successful ultrasound-guided paracentesis Assessment & Plan - Diagnosis (1) Partial small bowel obstruction Plan: She is again having difficulty with vomiting. I will check acute abdominal series, but consider RUQ U/S as well, as bili continue to rise. She may have some billiary obstruction forming. I will also check Lipase. Add reglan and consider Haldol PRN for nausea as well.
--- NOTE | 2017-08-09 12:20 | RADIOLOGY REPORT (SQ) ---
EXAM DESCRIPTION: ACUTE ABDOMEN SERIES COMPLETED DATE/TIME: 08/09/2017 12:07 pm REASON FOR STUDY: vomiting COMPARISON: 07/22/2017 NUMBER OF VIEWS: Three views. TECHNIQUE: Frontal chest, supine abdomen and upright/decubitus abdomen radiographic images acquired. LIMITATIONS: None. FINDINGS: CHEST: Lungs clear of infiltrates. FREE AIR: None. No abnormal gas collections. BOWEL GAS PATTERN: Dilated loops of small bowel centrally with air-fluid levels peer CALCIFICATIONS: No suspicious calcifications. HARDWARE: Stable scattered surgical clips. SOFT TISSUES: No gross mass or suggestion of organomegaly. BONES: No acute fracture. No worrisome bone lesions. OTHER: No other significant finding. IMPRESSION: DILATED SMALL BOWEL LOOPS CENTRALLY WITH AIR-FLUID LEVELS. DIFFERENTIAL INCLUDES SMALL BOWEL OBSTRUCTION OR ILEUS. TECHNICAL DOCUMENTATION: JOB ID: [id number] [employer]- All Rights Reserved
[2017-08-09] MEDS: ENOXAPARIN SODIUM INJ 60 MG/0.6 ML DISP.SYRIN SUBCUT SCH (12:23)
[2017-08-09] MEDS: METOCLOPRAMIDE HCL INJ/PF 10 MG/2 ML SDV IV SCH ×2 (15:33→21:24)
--- NOTE | 2017-08-09 18:45 | PDOC PROGRESS REPORT ---
Subjective Progress Note for:: 08/09/17 Subjective:: Still with nausea and vomiting, poor po intake. No f/c. Feel weak and tired. Reason For Visit: THROMBOCYTOPENIA,AUTOIMMUNE HEPATITIS,ANASARCA Physical Exam Vital Signs: Temp Pulse Resp BP Pulse Ox 97.5 F 105 H 16 106/72 95 08/09/17 16:15 08/09/17 16:15 08/09/17 16:15 08/09/17 16:15 08/09/17 16:15 Intake & Output 08/08/17 08/09/17 08/10/17 06:59 06:59 06:59 Intake Total 4740 5424 2280 Balance 4740 5424 2280 Weight 62.6 kg 65.6 kg GEN: NAD, chronically ill-appearing NECK supple, no JVD CV: RRR, NL S1S2 LUNGS: Decreased breath sounds bases ABDOMEN Soft, nondistended, mild discomfort EXTERMITIES: No e/c/c NEURO: Alert, oriented Results Laboratory Results: 08/09/17 06:55 08/09/17 06:55 08/09/17 08/09/17 08/09/17 06:55 06:55 06:55 WBC 12.2 H RBC 4.04 Hgb 12.4 Hct 37.8 MCV 94 MCH 30.7 MCHC 32.8 RDW 19.0 H Plt Count 82 L Seg Neutrophils % Not Reportable Lymphocytes % Not Reportable Monocytes % Not Reportable Eosinophils % Not Reportable Basophils % Not Reportable Absolute Neutrophils Not Reportable Absolute Lymphocytes Not Reportable Absolute Monocytes Not Reportable Absolute Eosinophils Not Reportable Absolute Basophils Not Reportable Sodium 132.8 L Potassium 4.1 Chloride 107 Carbon Dioxide 17 L Anion Gap 9 BUN 33 H Creatinine 0.99 Est GFR ( Amer) > 60 Est GFR (Non-Af Amer) 59 L Glucose 74 L Calcium 7.6 L Total Bilirubin 3.0 H AST 228 H ALT 94 H Alkaline Phosphatase 960 H Total Protein 4.4 L Albumin 1.9 L Lipase 34.3 08/06/17 08/06/17 04:55 04:55 Creatine Kinase 84 CK-MB (CK-2) 1.17 Troponin I 0.055 Impressions: Chest X-Ray 08/05/17 20:02 IMPRESSION: NO ACUTE RADIOGRAPHIC FINDING IN THE CHEST. Chest/Abdomen CTA 08/05/17 20:45 IMPRESSION: Acute pulmonary emboli right lung. New mass at the right base suspicious metastatic disease. Left basilar mass is stable. Ascites hepatic metastases. Paracentesis Ultrasound 08/07/17 00:00 IMPRESSION: Successful ultrasound-guided paracentesis Acute Abdomen Series 08/09/17 00:00 IMPRESSION: DILATED SMALL BOWEL LOOPS CENTRALLY WITH AIR-FLUID LEVELS. DIFFERENTIAL INCLUDES SMALL BOWEL OBSTRUCTION OR ILEUS. Assessment & Plan - Diagnosis (1) Pulmonary embolism Qualifiers: Pulmonary embolism type: other Chronicity: acute Acute cor pulmonale presence: without acute cor pulmonale Qualified Code(s): I26.99 - Other pulmonary embolism without acute cor pulmonale Is this a current diagnosis for this admission?: Yes Plan: Continue anticoagulation. Heparin was switched to enoxaparin 08/07/17 and tolerating. Continue O2, supportive care. (2) Ovarian cancer Qualifiers: Laterality: right Qualified Code(s): C56.1 - Malignant neoplasm of right ovary; C56.0 - Malignant neoplasm of right ovary Is this a current diagnosis for this admission?: Yes Plan: Oncology following. Plan for chemo outpatient when medically stabilized. (3) Small bowel obstruction Plan: Possible SBO vs ileus. Likely cause of continue nausea and vomiting. Will make patient n.p.o. for now, continue IV fluid D5 normal saline at 1 50 mL/h. NG tube if continued nausea vomiting., Will consider surgical consult if no improvement. (4) Dyspnea Qualifiers: Dyspnea type: unspecified Qualified Code(s): R06.00 - Dyspnea, unspecified Is this a current diagnosis for this admission?: Yes Plan: Secondary to PE. Continue O2 and to monitor patient. (5) FERCHO (acute kidney injury) Is this a current diagnosis for this admission?: Yes Plan: Likely secondary to dehydration/prerenal secondary to ascites secondary to ovarian cancer. Now improved. Continue IV fluids for now, given nausea vomiting and not taking in much po's. (6) Acute hyponatremia Is this a current diagnosis for this admission?: Yes Plan: Likely secondary to dehydration/inadequate intake. Continue normal saline IV. Continue to monitor. (7) Ascites Qualifiers: Ascites type: other type Qualified Code(s): R18.8 - Other ascites Is this a current diagnosis for this admission?: Yes Plan: Secondary to ovarian cancer. Status post repeat paracentesis with additional 5.7 L of fluid removed (initially had 1.8 L removed). (8) Anorexia Is this a current diagnosis for this admission?: Yes Plan: Likely secondary to metastatic cancer. Continue IV fluids for now, antiemetics as needed, supportive care. NPO, given acute abdominal series findings.
[2017-08-09] MEDS ORDERED: HALOPERIDOL 1 MG TABLET PO PRN (21:11)
[2017-08-09] MEDS: DEXTROSE 5%-NORMAL SALINE 1,000 ML IV PRN (21:23)
[2017-08-10] MEDS: ENOXAPARIN SODIUM INJ 60 MG/0.6 ML DISP.SYRIN SUBCUT SCH ×3 (00:09→23:44)
[2017-08-10] MEDS: OXYCODONE HCL IR 5 MG TABLET PO PRN ×2 (04:39→19:46)
[2017-08-10 07:32] LABS: HEMATOCRIT 41.9 % (36.0-47.0); HEMOGLOBIN 13.7 g/dL (12.0-15.5); MEAN CORPUSCULAR HEMOGLOBIN 30.8 pg (27.0-33.4); MEAN CORPUSCULAR HGB CONC 32.7 g/dL (32.0-36.0); MEAN CORPUSCULAR VOLUME 94 fl (80-97); RED BLOOD COUNT 4.46 10^6/uL (3.72-5.28); RED CELL DISTRIBUTION WIDTH 19.5 % (11.5-14.0)
[2017-08-10 07:49] LABS: ANION GAP 11 (5-19); BLOOD UREA NITROGEN 27 mg/dL (7-20); CARBON DIOXIDE 13 mmol/L (22-30); CHLORIDE 113 mmol/L (98-107); GLUCOSE 92 mg/dL (75-110); POTASSIUM 4.2 mmol/L (3.6-5.0); SODIUM 136.5 mmol/L (137-145)
[2017-08-10 07:58] LABS: PLATELET COUNT 63 10^3/uL (150-450)
[2017-08-10] MEDS ORDERED: DEXTROSE 40% GEL 15 GM TUBE PO PRN ×2 (07:59)
[2017-08-10] MEDS ORDERED: DEXTROSE 50%-WATER 25 GM/50 ML DISP.SYRIN IV PRN ×2 (07:59)
[2017-08-10] MEDS ORDERED: GLUCAGON,HUMAN RECOMB 1 MG INJ SUBCUT PRN (07:59)
[2017-08-10 08:02] LABS: ABSOLUTE LYMPHOCYTES# (MANUAL) 1.4 10^3/uL (0.5-4.7); ABSOLUTE MONOCYTES # (MANUAL) 0.4 10^3/uL (0.1-1.4); ABSOLUTE NEUTROPHILS# (MANUAL) 11.2 10^3/uL (1.7-8.2); BASOPHILS % (MANUAL) 0 % (0-2); EOSINOPHILS % (MANUAL) 0 % (0-6); LYMPHOCYTES % (MANUAL) 11 % (13-45); MONOCYTES % (MANUAL) 3 % (3-13); SEGMENTED NEUTROPHILS % (MAN) 86 % (42-78); TOTAL CELLS COUNTED 100
[2017-08-10 08:08] LABS: TOXIC GRANULATION SLIGHT; TOXIC VACUOLATION PRESENT
[2017-08-10 08:09] LABS: ANISOCYTOSIS 2+; OVALOCYTES SLIGHT; PLATELET COMMENT DECREASED; POIKILOCYTOSIS SLIGHT; POLYCHROMASIA 1+
--- NOTE | 2017-08-10 08:18 | PDOC PROGRESS REPORT ---
Subjective Progress Note for:: 08/10/17 Subjective:: Patient states that she did not vomit as much last night, but she also states that she has not been allowed to eat or drink since yesterday. Nurses report that she lost her IV sight last night and was not able to be replaced. This morning, she asks for ice chips. She is thirsty and her mouth is very dry. ROS : No abdominal pain. No BMs x 2 days. Reason For Visit: THROMBOCYTOPENIA,AUTOIMMUNE HEPATITIS,ANASARCA Physical Exam Vital Signs: Temp Pulse Resp BP Pulse Ox 97.6 F 102 H 17 100/69 96 08/10/17 07:28 08/10/17 07:28 08/10/17 07:28 08/10/17 07:28 08/10/17 07:28 Intake & Output 08/09/17 08/10/17 08/11/17 06:59 06:59 06:59 Intake Total 5424 4017 Balance 5424 4017 Weight 65.6 kg 65.6 kg General appearance: PRESENT: no acute distress, thin Head exam: PRESENT: normocephalic Mouth exam: PRESENT: dry mucosa Respiratory exam: PRESENT: clear to auscultation sheila, unlabored Cardiovascular exam: PRESENT: RRR GI/Abdominal exam: PRESENT: hypoactive bowel sounds, soft. ABSENT: tenderness Neurological exam: PRESENT: alert, awake Psychiatric exam: PRESENT: appropriate affect Results Laboratory Results: 08/10/17 07:18 08/10/17 07:18 08/09/17 08/09/17 08/09/17 06:55 06:55 19:25 WBC 12.2 H RBC 4.04 Hgb 12.4 Hct 37.8 MCV 94 MCH 30.7 MCHC 32.8 RDW 19.0 H Plt Count 82 L Seg Neutrophils % Not Reportable Lymphocytes % Not Reportable Monocytes % Not Reportable Eosinophils % Not Reportable Basophils % Not Reportable Absolute Neutrophils Not Reportable Absolute Lymphocytes Not Reportable Absolute Monocytes Not Reportable Absolute Eosinophils Not Reportable Absolute Basophils Not Reportable Sodium Potassium Chloride Carbon Dioxide Anion Gap BUN Creatinine Est GFR ( Amer) Est GFR (Non-Af Amer) Glucose Calcium Magnesium 2.0 Lipase 34.3 08/10/17 08/10/17 07:18 07:18 WBC 13.0 H RBC 4.46 Hgb 13.7 Hct 41.9 MCV 94 MCH 30.8 MCHC 32.7 RDW 19.5 H Plt Count 63 L Seg Neutrophils % Not Reportable Lymphocytes % Not Reportable Monocytes % Not Reportable Eosinophils % Not Reportable Basophils % Not Reportable Absolute Neutrophils Not Reportable Absolute Lymphocytes Not Reportable Absolute Monocytes Not Reportable Absolute Eosinophils Not Reportable Absolute Basophils Not Reportable Sodium 136.5 L Potassium 4.2 Chloride 113 H Carbon Dioxide 13 L Anion Gap 11 BUN 27 H Creatinine 0.90 Est GFR ( Amer) > 60 Est GFR (Non-Af Amer) > 60 Glucose 92 Calcium 8.0 L Magnesium Lipase 08/06/17 08/06/17 04:55 04:55 Creatine Kinase 84 CK-MB (CK-2) 1.17 Troponin I 0.055 Impressions: Chest X-Ray 08/05/17 20:02 IMPRESSION: NO ACUTE RADIOGRAPHIC FINDING IN THE CHEST. Chest/Abdomen CTA 08/05/17 20:45 IMPRESSION: Acute pulmonary emboli right lung. New mass at the right base suspicious metastatic disease. Left basilar mass is stable. Ascites hepatic metastases. Paracentesis Ultrasound 08/07/17 00:00 IMPRESSION: Successful ultrasound-guided paracentesis Acute Abdomen Series 08/09/17 00:00 IMPRESSION: DILATED SMALL BOWEL LOOPS CENTRALLY WITH AIR-FLUID LEVELS. DIFFERENTIAL INCLUDES SMALL BOWEL OBSTRUCTION OR ILEUS. Assessment & Plan - Diagnosis (1) Partial small bowel obstruction Plan: OK to access Port for MIVF and meds. I would continue IV Reglan RTC until she can tolerate PO and this can be changed to PO. Continue Zofran and Haldol PRN for nausea. I will repeat CMP to check Bili. Consider clear liquids today, but if unable to tolerate, consider NG tube. Her Lipase was normal. Xrays confirm at least partial SBO. I do NOT believe she will be a good candidate for surgery, as this is most likely due to her cancer. Dr. Patel will return tomorrow. Please call me with any further questions today.
[2017-08-10] MEDS: METOCLOPRAMIDE HCL INJ/PF 10 MG/2 ML SDV IV SCH ×4 (08:54→22:07)
[2017-08-10] MEDS: DOCUSATE SODIUM 100 MG CAPSULE PO SCH ×2 (10:50→17:28)
[2017-08-10] MEDS: FAMOTIDINE 20 MG TABLET PO SCH (10:50)
[2017-08-10] MEDS: LEVOFLOXACIN 500 MG TABLET PO SCH (10:50)
[2017-08-10] MEDS: DEXTROSE 5%-NORMAL SALINE 1,000 ML IV PRN ×2 (15:10→22:15)
--- NOTE | 2017-08-10 16:10 | PDOC PROGRESS REPORT ---
Subjective Progress Note for:: 08/10/17 Subjective:: Did not experience any more vomiting overnight. Placed back on ice chips today and tolerating. No f/c. Feel weak still, but a little better today. Reason For Visit: THROMBOCYTOPENIA,AUTOIMMUNE HEPATITIS,ANASARCA Physical Exam Vital Signs: Temp Pulse Resp BP Pulse Ox 97.4 F 99 18 108/73 97 08/10/17 12:00 08/10/17 14:00 08/10/17 12:00 08/10/17 12:00 08/10/17 12:00 Intake & Output 08/09/17 08/10/17 08/11/17 06:59 06:59 06:59 Intake Total 5424 4017 Balance 5424 4017 Weight 65.6 kg 65.6 kg GEN: NAD, chronically ill-appearing NECK: supple, no JVD CV: RRR, NL S1S2 LUNGS: Decreased breath sounds bases ABDOMEN Soft, mild distention, nontender EXTERMITIES: No e/c/c NEURO: Alert, oriented Results Laboratory Results: 08/10/17 07:18 08/10/17 07:18 08/09/17 08/10/17 08/10/17 19:25 07:18 07:18 WBC 13.0 H RBC 4.46 Hgb 13.7 Hct 41.9 MCV 94 MCH 30.8 MCHC 32.7 RDW 19.5 H Plt Count 63 L Seg Neutrophils % Not Reportable Lymphocytes % Not Reportable Monocytes % Not Reportable Eosinophils % Not Reportable Basophils % Not Reportable Absolute Neutrophils Not Reportable Absolute Lymphocytes Not Reportable Absolute Monocytes Not Reportable Absolute Eosinophils Not Reportable Absolute Basophils Not Reportable Sodium 136.5 L Potassium 4.2 Chloride 113 H Carbon Dioxide 13 L Anion Gap 11 BUN 27 H Creatinine 0.90 Est GFR ( Amer) > 60 Est GFR (Non-Af Amer) > 60 Glucose 92 Calcium 8.0 L Magnesium 2.0 08/06/17 08/06/17 04:55 04:55 Creatine Kinase 84 CK-MB (CK-2) 1.17 Troponin I 0.055 Impressions: Chest X-Ray 08/05/17 20:02 IMPRESSION: NO ACUTE RADIOGRAPHIC FINDING IN THE CHEST. Chest/Abdomen CTA 08/05/17 20:45 IMPRESSION: Acute pulmonary emboli right lung. New mass at the right base suspicious metastatic disease. Left basilar mass is stable. Ascites hepatic metastases. Paracentesis Ultrasound 08/07/17 00:00 IMPRESSION: Successful ultrasound-guided paracentesis Acute Abdomen Series 08/09/17 00:00 IMPRESSION: DILATED SMALL BOWEL LOOPS CENTRALLY WITH AIR-FLUID LEVELS. DIFFERENTIAL INCLUDES SMALL BOWEL OBSTRUCTION OR ILEUS. Assessment & Plan - Diagnosis (1) Pulmonary embolism Qualifiers: Pulmonary embolism type: other Chronicity: acute Acute cor pulmonale presence: without acute cor pulmonale Qualified Code(s): I26.99 - Other pulmonary embolism without acute cor pulmonale Is this a current diagnosis for this admission?: Yes Plan: Continue anticoagulation. Heparin was switched to enoxaparin 08/07/17 and tolerating. Continue O2, supportive care. (2) Ovarian cancer Qualifiers: Laterality: right Qualified Code(s): C56.1 - Malignant neoplasm of right ovary; C56.0 - Malignant neoplasm of right ovary Is this a current diagnosis for this admission?: Yes Plan: Oncology following. Plan for chemo outpatient when medically stabilized. (3) Dyspnea Qualifiers: Dyspnea type: unspecified Qualified Code(s): R06.00 - Dyspnea, unspecified Is this a current diagnosis for this admission?: Yes (4) Partial small bowel obstruction Plan: Possible SBO --partial--vs ileus. Likely contributory to nausea and vomiting. Continue IV fluid D5 normal saline at 1 50 mL/h. Patient currently tolerating ice chips. Will advance to clear liquid diet. NG tube if continued nausea vomiting. Continue Reglan IV for now, Zofran as needed, Haldol as needed for nausea. Will consider surgical consult if no improvement. I agree with Dr. Granados that patient is not likely a surgical candidate, possible partial bowel obstruction likely secondary to advance ovarian cancer. (5) FERCHO (acute kidney injury) Is this a current diagnosis for this admission?: Yes Plan: Likely secondary to dehydration/prerenal secondary to ascites secondary to ovarian cancer. Improved. Continue IV fluids for now, given nausea vomiting and not taking in much po's. (6) Acute hyponatremia Is this a current diagnosis for this admission?: Yes Plan: Likely secondary to dehydration/inadequate intake. Continue normal saline IV. Continue to monitor. (7) Ascites Qualifiers: Ascites type: other type Qualified Code(s): R18.8 - Other ascites Is this a current diagnosis for this admission?: Yes Plan: Secondary to ovarian cancer. Status post repeat paracentesis with additional 5.7 L of fluid removed (initially had 1.8 L removed). (8) Anorexia Is this a current diagnosis for this admission?: Yes Plan: Likely secondary to metastatic cancer. Continue IV fluids for now, antiemetics as needed, supportive care. Clear liquid diet for now, given possible partial SBO. (9) Thrombasthenia Is this a current diagnosis for this admission?: Yes Plan: Platelets trending down. We will continue to follow. No bleeding at this time or indication for platelet transfusion at this time.
[2017-08-11] MEDS: DEXTROSE 5%-NORMAL SALINE 1,000 ML IV PRN ×2 (05:06→12:00)
[2017-08-11 05:45] LABS: ALANINE AMINOTRANSFERASE 88 U/L (9-52); ALBUMIN 1.6 g/dL (3.5-5.0); ALKALINE PHOSPHATASE 985 U/L (38-126); ANION GAP 9 (5-19); ASPARTATE AMINO TRANSFERASE 155 U/L (14-36); BILIRUBIN,DIRECT 2.1 mg/dL (0.0-0.4); BILIRUBIN,TOTAL 2.6 mg/dL (0.2-1.3); BLOOD UREA NITROGEN 21 mg/dL (7-20); CALCIUM 7.4 mg/dL (8.4-10.2); CARBON DIOXIDE 14 mmol/L (22-30); CHLORIDE 115 mmol/L (98-107); GLUCOSE 100 mg/dL (75-110); POTASSIUM 3.6 mmol/L (3.6-5.0); SODIUM 138.3 mmol/L (137-145); TOTAL PROTEIN 3.7 g/dL (6.3-8.2)
[2017-08-11 05:58] LABS: HEMATOCRIT 36.9 % (36.0-47.0); HEMOGLOBIN 12.3 g/dL (12.0-15.5); MEAN CORPUSCULAR HGB CONC 33.3 g/dL (32.0-36.0); MEAN CORPUSCULAR VOLUME 93 fl (80-97); RED BLOOD COUNT 3.96 10^6/uL (3.72-5.28); RED CELL DISTRIBUTION WIDTH 19.9 % (11.5-14.0); WHITE BLOOD COUNT 13.6 10^3/uL (4.0-10.5)
[2017-08-11 06:37] LABS: PLATELET COUNT 48 10^3/uL (150-450)
--- NOTE | 2017-08-11 08:07 | PDOC PROGRESS REPORT ---
Subjective Progress Note for:: 08/11/17 Subjective:: Pt feels better from nausea standpoint, no BM x 2 days, but passing gas, is weak but has been told she can't get out of bed, really wants to work w/ PT Reason For Visit: THROMBOCYTOPENIA,AUTOIMMUNE HEPATITIS,ANASARCA Physical Exam Vital Signs: Temp Pulse Resp BP Pulse Ox 97.3 F 93 18 117/87 H 100 08/11/17 03:51 08/11/17 03:51 08/11/17 03:51 08/11/17 03:51 08/11/17 03:51 Intake & Output 08/10/17 08/11/17 08/12/17 06:59 06:59 06:59 Intake Total 4017 3192 Output Total 100 Balance 4017 3092 Weight 65.6 kg 65.6 kg General appearance: PRESENT: no acute distress, well-developed, well-nourished Head exam: PRESENT: atraumatic, normocephalic Eye exam: PRESENT: conjunctiva pink, EOMI, PERRLA. ABSENT: scleral icterus Ear exam: PRESENT: normal external ear exam Mouth exam: PRESENT: moist, tongue midline Neck exam: ABSENT: carotid bruit, JVD, lymphadenopathy, thyromegaly Respiratory exam: PRESENT: clear to auscultation sheila. ABSENT: rales, rhonchi, wheezes Cardiovascular exam: PRESENT: RRR. ABSENT: diastolic murmur, rubs, systolic murmur Pulses: PRESENT: normal dorsalis pedis pul Vascular exam: PRESENT: normal capillary refill GI/Abdominal exam: PRESENT: normal bowel sounds, soft. ABSENT: distended, guarding, mass, organolmegaly, rebound, tenderness Rectal exam: PRESENT: deferred Extremities exam: PRESENT: full ROM. ABSENT: calf tenderness, clubbing, pedal edema Neurological exam: PRESENT: alert, awake, oriented to person, oriented to place , oriented to time, oriented to situation, CN II-XII grossly intact. ABSENT: motor sensory deficit Psychiatric exam: PRESENT: appropriate affect, normal mood. ABSENT: homicidal ideation, suicidal ideation Skin exam: PRESENT: dry, intact, warm. ABSENT: cyanosis, rash Results Laboratory Results: 08/11/17 05:15 08/11/17 05:15 08/10/17 08/11/17 08/11/17 07:18 05:15 05:15 WBC 13.0 H 13.6 H RBC 4.46 3.96 Hgb 13.7 12.3 Hct 41.9 36.9 MCV 94 93 MCH 30.8 31.0 MCHC 32.7 33.3 RDW 19.5 H 19.9 H Plt Count 63 L 48 L Sodium 138.3 Potassium 3.6 Chloride 115 H Carbon Dioxide 14 L Anion Gap 9 BUN 21 H Creatinine 0.93 Est GFR ( Amer) > 60 Est GFR (Non-Af Amer) > 60 Glucose 100 Calcium 7.4 L Total Bilirubin 2.6 H AST 155 H ALT 88 H Alkaline Phosphatase 985 H Total Protein 3.7 L Albumin 1.6 L 08/06/17 08/06/17 04:55 04:55 Creatine Kinase 84 CK-MB (CK-2) 1.17 Troponin I 0.055 Impressions: Chest X-Ray 08/05/17 20:02 IMPRESSION: NO ACUTE RADIOGRAPHIC FINDING IN THE CHEST. Chest/Abdomen CTA 08/05/17 20:45 IMPRESSION: Acute pulmonary emboli right lung. New mass at the right base suspicious metastatic disease. Left basilar mass is stable. Ascites hepatic metastases. Paracentesis Ultrasound 08/07/17 00:00 IMPRESSION: Successful ultrasound-guided paracentesis Acute Abdomen Series 08/09/17 00:00 IMPRESSION: DILATED SMALL BOWEL LOOPS CENTRALLY WITH AIR-FLUID LEVELS. DIFFERENTIAL INCLUDES SMALL BOWEL OBSTRUCTION OR ILEUS. Assessment & Plan - Diagnosis (1) Pulmonary embolism Qualifiers: Pulmonary embolism type: other Chronicity: acute Acute cor pulmonale presence: without acute cor pulmonale Qualified Code(s): I26.99 - Other pulmonary embolism without acute cor pulmonale Is this a current diagnosis for this admission?: Yes Plan: Hold lovenox, plt ct <50 today (2) Ovarian cancer Qualifiers: Laterality: right Qualified Code(s): C56.1 - Malignant neoplasm of right ovary; C56.0 - Malignant neoplasm of right ovary Is this a current diagnosis for this admission?: Yes Plan: Cause of partial SBO, advance diet today, get PT to work w/ pt (3) Abdominal pain Qualifiers: Abdominal location: right upper quadrant Qualified Code(s): R10.11 - Right upper quadrant pain Is this a current diagnosis for this admission?: Yes Plan: Con't 2nd to ovarian ca, cont current regimen
[2017-08-11] MEDS: METOCLOPRAMIDE HCL INJ/PF 10 MG/2 ML SDV IV SCH ×4 (08:45→22:28)
[2017-08-11] MEDS: LEVOFLOXACIN 500 MG TABLET PO SCH (10:43)
[2017-08-11] MEDS: FAMOTIDINE 20 MG TABLET PO SCH (10:43)
[2017-08-11] MEDS: DOCUSATE SODIUM 100 MG CAPSULE PO SCH ×2 (10:43→18:00)
[2017-08-11] MEDS: OXYCODONE HCL IR 5 MG TABLET PO PRN ×2 (10:46→22:28)
[2017-08-11] MEDS: ENOXAPARIN SODIUM INJ 60 MG/0.6 ML DISP.SYRIN SUBCUT SCH (10:48)
--- NOTE | 2017-08-11 21:06 | PDOC PROGRESS REPORT ---
Subjective Progress Note for:: 08/11/17 Subjective:: Feel weak still, but a little better today. Nausea and vomiting better. Tolerating clear liquids. No f/c. No significant abdominal pain. Reason For Visit: THROMBOCYTOPENIA,AUTOIMMUNE HEPATITIS,ANASARCA Physical Exam Vital Signs: Temp Pulse Resp BP Pulse Ox 97.5 F 110 H 19 105/76 95 08/11/17 19:46 08/11/17 19:46 08/11/17 19:46 08/11/17 19:46 08/11/17 19:46 Intake & Output 08/10/17 08/11/17 08/12/17 06:59 06:59 06:59 Intake Total 4017 3192 2332 Output Total 100 Balance 4017 3092 2332 Weight 65.6 kg 65.6 kg GEN: NAD, chronically ill-appearing NECK: supple, no JVD CV: RRR, NL S1S2 LUNGS: Decreased breath sounds bases ABDOMEN Soft, mild distention, nontender EXTERMITIES: No e/c/c NEURO: Alert, oriented Results Laboratory Results: 08/11/17 05:15 08/11/17 05:15 08/11/17 08/11/17 05:15 05:15 WBC 13.6 H RBC 3.96 Hgb 12.3 Hct 36.9 MCV 93 MCH 31.0 MCHC 33.3 RDW 19.9 H Plt Count 48 L Sodium 138.3 Potassium 3.6 Chloride 115 H Carbon Dioxide 14 L Anion Gap 9 BUN 21 H Creatinine 0.93 Est GFR ( Amer) > 60 Est GFR (Non-Af Amer) > 60 Glucose 100 Calcium 7.4 L Total Bilirubin 2.6 H AST 155 H ALT 88 H Alkaline Phosphatase 985 H Total Protein 3.7 L Albumin 1.6 L 08/06/17 08/06/17 04:55 04:55 Creatine Kinase 84 CK-MB (CK-2) 1.17 Troponin I 0.055 Impressions: Chest X-Ray 08/05/17 20:02 IMPRESSION: NO ACUTE RADIOGRAPHIC FINDING IN THE CHEST. Chest/Abdomen CTA 08/05/17 20:45 IMPRESSION: Acute pulmonary emboli right lung. New mass at the right base suspicious metastatic disease. Left basilar mass is stable. Ascites hepatic metastases. Paracentesis Ultrasound 08/07/17 00:00 IMPRESSION: Successful ultrasound-guided paracentesis Acute Abdomen Series 08/09/17 00:00 IMPRESSION: DILATED SMALL BOWEL LOOPS CENTRALLY WITH AIR-FLUID LEVELS. DIFFERENTIAL INCLUDES SMALL BOWEL OBSTRUCTION OR ILEUS. Assessment & Plan - Diagnosis (1) Pulmonary embolism Qualifiers: Pulmonary embolism type: other Chronicity: acute Acute cor pulmonale presence: without acute cor pulmonale Qualified Code(s): I26.99 - Other pulmonary embolism without acute cor pulmonale Is this a current diagnosis for this admission?: Yes (2) Ovarian cancer Qualifiers: Laterality: right Qualified Code(s): C56.1 - Malignant neoplasm of right ovary; C56.0 - Malignant neoplasm of right ovary Is this a current diagnosis for this admission?: Yes (3) Dyspnea Qualifiers: Dyspnea type: unspecified Qualified Code(s): R06.00 - Dyspnea, unspecified Is this a current diagnosis for this admission?: Yes (5) FERCHO (acute kidney injury) Is this a current diagnosis for this admission?: Yes (6) Acute hyponatremia Is this a current diagnosis for this admission?: Yes (7) Ascites Qualifiers: Ascites type: other type Qualified Code(s): R18.8 - Other ascites Is this a current diagnosis for this admission?: Yes (8) Anorexia Is this a current diagnosis for this admission?: Yes (9) Thrombasthenia Is this a current diagnosis for this admission?: Yes - Plan Summary Plan Summary: Oncology follow-up appreciated. Continue to advance diet as tolerated. Continue IV fluids for now. Plan is for patient to be discharged in the next 1- 2 days if better and for chemo as outpatient.
[2017-08-11] MEDS: ONDANSETRON HCL INJ/PF 4 MG/2 ML SDV IV PRN (22:28)
[2017-08-12] MEDS: DEXTROSE 5%-NORMAL SALINE 1,000 ML IV PRN (01:27)
[2017-08-12 02:19] LABS: APPEARANCE,URINE SLIGHTLY-CLOUDY; BILIRUBIN,URINE NEGATIVE (NEGATIVE); COLOR,URINE AMBER; GLUCOSE, URINE NEGATIVE (NEGATIVE); KETONES,URINE NEGATIVE (NEGATIVE); LEUKOCYTE ESTERASE,URINE LARGE (NEGATIVE); NITRITE,URINE NEGATIVE (NEGATIVE); PROTEIN,URINE 30 mg/dL (NEGATIVE); URINE SPECIFIC GRAVITY 1.021
[2017-08-12 06:58] LABS: HEMATOCRIT 37.4 % (36.0-47.0); HEMOGLOBIN 12.4 g/dL (12.0-15.5); MEAN CORPUSCULAR HEMOGLOBIN 30.9 pg (27.0-33.4); MEAN CORPUSCULAR HGB CONC 33.1 g/dL (32.0-36.0); MEAN CORPUSCULAR VOLUME 93 fl (80-97); RED CELL DISTRIBUTION WIDTH 20.6 % (11.5-14.0); WHITE BLOOD COUNT 16.1 10^3/uL (4.0-10.5)
[2017-08-12 07:09] LABS: ANION GAP 9 (5-19); BLOOD UREA NITROGEN 19 mg/dL (7-20); CALCIUM 7.3 mg/dL (8.4-10.2); CARBON DIOXIDE 14 mmol/L (22-30); CHLORIDE 119 mmol/L (98-107); GLUCOSE 103 mg/dL (75-110); POTASSIUM 3.4 mmol/L (3.6-5.0); SODIUM 141.8 mmol/L (137-145)
[2017-08-12 07:52] LABS: PLATELET COUNT 33 10^3/uL (150-450)
[2017-08-12 08:29] LABS: ABSOLUTE LYMPHOCYTES# (MANUAL) 0.3 10^3/uL (0.5-4.7); ABSOLUTE MONOCYTES # (MANUAL) 0.6 10^3/uL (0.1-1.4); ABSOLUTE NEUTROPHILS# (MANUAL) 15.1 10^3/uL (1.7-8.2); BAND NEUTROPHILS % (MANUAL) 2 % (3-5); BASOPHILS % (MANUAL) 0 % (0-2); EOSINOPHILS % (MANUAL) 0 % (0-6); LYMPHOCYTES % (MANUAL) 2 % (13-45); MONOCYTES % (MANUAL) 4 % (3-13); SEGMENTED NEUTROPHILS % (MAN) 92 % (42-78); TOTAL CELLS COUNTED 100
--- NOTE | 2017-08-12 08:29 | PDOC PROGRESS REPORT ---
Subjective Progress Note for:: 08/12/17 Subjective:: Pt was very weak yesterday, had a near fall even w/ assistance. Today i discussed the utility of rehab placement. Plt ct yesterday was 48 so held lovenox. Awaiting count from today. Reason For Visit: THROMBOCYTOPENIA,AUTOIMMUNE HEPATITIS,ANASARCA Physical Exam Vital Signs: Temp Pulse Resp BP Pulse Ox 97.7 F 108 H 19 113/88 H 96 08/11/17 23:11 08/11/17 23:11 08/11/17 23:11 08/11/17 23:11 08/11/17 23:11 Intake & Output 08/11/17 08/12/17 08/13/17 06:59 06:59 06:59 Intake Total 3192 4332 Output Total 100 Balance 3092 4332 Weight 65.6 kg 65.6 kg General appearance: PRESENT: no acute distress, well-developed, well-nourished Head exam: PRESENT: atraumatic, normocephalic Eye exam: PRESENT: conjunctiva pink, EOMI, PERRLA. ABSENT: scleral icterus Ear exam: PRESENT: normal external ear exam Mouth exam: PRESENT: moist, tongue midline Neck exam: ABSENT: carotid bruit, JVD, lymphadenopathy, thyromegaly Respiratory exam: PRESENT: clear to auscultation sheila. ABSENT: rales, rhonchi, wheezes Cardiovascular exam: PRESENT: RRR. ABSENT: diastolic murmur, rubs, systolic murmur Pulses: PRESENT: normal dorsalis pedis pul Vascular exam: PRESENT: normal capillary refill GI/Abdominal exam: PRESENT: normal bowel sounds, soft. ABSENT: distended, guarding, mass, organolmegaly, rebound, tenderness Rectal exam: PRESENT: deferred Extremities exam: PRESENT: full ROM. ABSENT: calf tenderness, clubbing, pedal edema Neurological exam: PRESENT: alert, awake, oriented to person, oriented to place , oriented to time, oriented to situation, CN II-XII grossly intact. ABSENT: motor sensory deficit Psychiatric exam: PRESENT: appropriate affect, normal mood. ABSENT: homicidal ideation, suicidal ideation Skin exam: PRESENT: dry, intact, warm. ABSENT: cyanosis, rash Results Laboratory Results: 08/12/17 06:15 08/12/17 06:15 08/12/17 08/12/17 08/12/17 01:45 06:15 06:15 WBC 16.1 H RBC 4.00 Hgb 12.4 Hct 37.4 MCV 93 MCH 30.9 MCHC 33.1 RDW 20.6 H Plt Count 33 L Seg Neutrophils % Not Reportable Lymphocytes % Not Reportable Monocytes % Not Reportable Eosinophils % Not Reportable Basophils % Not Reportable Absolute Neutrophils Not Reportable Absolute Lymphocytes Not Reportable Absolute Monocytes Not Reportable Absolute Eosinophils Not Reportable Absolute Basophils Not Reportable Sodium 141.8 Potassium 3.4 L Chloride 119 H Carbon Dioxide 14 L Anion Gap 9 BUN 19 Creatinine 0.86 Est GFR ( Amer) > 60 Est GFR (Non-Af Amer) > 60 Glucose 103 Calcium 7.3 L Urine Color LALY Urine Appearance SLIGHTLY-CLOUDY Urine pH 5.0 Ur Specific [place] 1.021 Urine Protein 30 H Urine Glucose (UA) NEGATIVE Urine Ketones NEGATIVE Urine Blood NEGATIVE Urine Nitrite NEGATIVE Ur Leukocyte Esterase LARGE H Urine WBC (Auto) 58 Urine RBC (Auto) 3 08/06/17 08/06/17 04:55 04:55 Creatine Kinase 84 CK-MB (CK-2) 1.17 Troponin I 0.055 Impressions: Chest X-Ray 08/05/17 20:02 IMPRESSION: NO ACUTE RADIOGRAPHIC FINDING IN THE CHEST. Chest/Abdomen CTA 08/05/17 20:45 IMPRESSION: Acute pulmonary emboli right lung. New mass at the right base suspicious metastatic disease. Left basilar mass is stable. Ascites hepatic metastases. Paracentesis Ultrasound 08/07/17 00:00 IMPRESSION: Successful ultrasound-guided paracentesis Acute Abdomen Series 08/09/17 00:00 IMPRESSION: DILATED SMALL BOWEL LOOPS CENTRALLY WITH AIR-FLUID LEVELS. DIFFERENTIAL INCLUDES SMALL BOWEL OBSTRUCTION OR ILEUS. Assessment & Plan - Diagnosis (1) Pulmonary embolism Qualifiers: Pulmonary embolism type: other Chronicity: acute Acute cor pulmonale presence: without acute cor pulmonale Qualified Code(s): I26.99 - Other pulmonary embolism without acute cor pulmonale Is this a current diagnosis for this admission?: Yes Plan: Hold lovenox until w/ have plt ct, ok to give if ct >50 (2) Ovarian cancer Qualifiers: Laterality: right Qualified Code(s): C56.1 - Malignant neoplasm of right ovary; C56.0 - Malignant neoplasm of right ovary Is this a current diagnosis for this admission?: Yes Plan: further rx planned eventually as oupt (3) Abdominal pain Qualifiers: Abdominal location: right upper quadrant Qualified Code(s): R10.11 - Right upper quadrant pain Is this a current diagnosis for this admission?: Yes Plan: 2nd ascitis, increasing again (4) Physical deconditioning Is this a current diagnosis for this admission?: Yes Plan: Severe, PT to eval for d/c to rehab, getting d/c planning involved today
[2017-08-12 08:30] LABS: ANISOCYTOSIS 2+; HYPOCHROMASIA SLIGHT; POLYCHROMASIA 1+; TOXIC GRANULATION 2+
[2017-08-12 08:31] LABS: PLATELET COMMENT DECREASED
[2017-08-12] MEDS: FAMOTIDINE 20 MG TABLET PO SCH (09:54)
[2017-08-12] MEDS: DOCUSATE SODIUM 100 MG CAPSULE PO SCH ×2 (09:54→17:43)
[2017-08-12] MEDS: METOCLOPRAMIDE HCL INJ/PF 10 MG/2 ML SDV IV SCH ×4 (09:54→22:07)
[2017-08-12 11:15] LABS: FIBRINOGEN 311 mg/dL (209-497); INTERNATIONAL RATION (INR) 1.14; PROTHROMBIN TIME 15.4 SEC (11.4-15.4)
--- NOTE | 2017-08-12 17:32 | PDOC PROGRESS REPORT ---
Subjective Progress Note for:: 08/12/17 Subjective:: CHARITY DESIR is a 51 year old female patient of Dr. Patel with a past medical history of stage IV ovarian cancer with widespread metastases and recurrent ascites. She presents after 2 days of increasing shortness of breath and worsening abdominal distention prompting her to seek evaluation emergency room where she has a therapeutic bedside paracentesis performed removing 1.6 L. She remained tachycardic prompting a CTA chest revealing multiple acute right- sided pulmonary emboli. She started on heparin and referred to the hospitalist for admission. Her oncologist Dr. Patel was consulted. He ordered lower extremity Dopplers. She has bilateral lower extremity DVTs. She underwent a second paracentesis 2 days following admission. This time, 5700 cc was removed. Following the procedure, she was started on Lovenox, instead of IV heparin with plans to discharge her home with subcu Lovenox. However, she continued to be very weak and deconditioned. With that in mind, rehabilitation was offered, which she agreed to. On August 09, she developed abdominal discomfort. Abdominal x-ray was obtained showing partial small bowel obstruction. Around this time, her platelet count starting to trend downward. Ultimately, anticoagulation was discontinued because her platelet count dropped below 50,000. She remains deconditioned. Today, I approached her about her CODE STATUS. She did not want to discuss it. Reason For Visit: THROMBOCYTOPENIA,AUTOIMMUNE HEPATITIS,ANASARCA Physical Exam Vital Signs: Temp Pulse Resp BP Pulse Ox 97.3 F 108 H 18 121/94 H 96 08/12/17 15:18 08/12/17 15:18 08/12/17 15:18 08/12/17 15:18 08/12/17 15:18 Intake & Output 08/11/17 08/12/17 08/13/17 06:59 06:59 06:59 Intake Total 3192 4332 300 Output Total 100 400 Balance 3092 4332 -100 Weight 65.6 kg 65.6 kg General appearance: PRESENT: thin Eye exam: PRESENT: conjunctiva pale Mouth exam: PRESENT: dry mucosa Respiratory exam: PRESENT: clear to auscultation sheila, unlabored. ABSENT: accessory muscle use Cardiovascular exam: PRESENT: RRR. ABSENT: diastolic murmur, rubs, systolic murmur Vascular exam: PRESENT: pallor GI/Abdominal exam: PRESENT: ascites, distended, soft. ABSENT: tenderness Neurological exam: PRESENT: alert, oriented to person, oriented to place, oriented to time, oriented to situation, CN II-XII grossly intact. ABSENT: altered Psychiatric exam: PRESENT: appropriate affect, normal mood. ABSENT: homicidal ideation, suicidal ideation Skin exam: PRESENT: mottled Results Laboratory Results: 08/12/17 06:15 08/12/17 06:15 08/12/17 08/12/17 08/12/17 01:45 06:15 06:15 WBC 16.1 H RBC 4.00 Hgb 12.4 Hct 37.4 MCV 93 MCH 30.9 MCHC 33.1 RDW 20.6 H Plt Count 33 L Seg Neutrophils % Not Reportable Lymphocytes % Not Reportable Monocytes % Not Reportable Eosinophils % Not Reportable Basophils % Not Reportable Absolute Neutrophils Not Reportable Absolute Lymphocytes Not Reportable Absolute Monocytes Not Reportable Absolute Eosinophils Not Reportable Absolute Basophils Not Reportable Sodium 141.8 Potassium 3.4 L Chloride 119 H Carbon Dioxide 14 L Anion Gap 9 BUN 19 Creatinine 0.86 Est GFR ( Amer) > 60 Est GFR (Non-Af Amer) > 60 Glucose 103 Calcium 7.3 L Urine Color LALY Urine Appearance SLIGHTLY-CLOUDY Urine pH 5.0 Ur Specific [place] 1.021 Urine Protein 30 H Urine Glucose (UA) NEGATIVE Urine Ketones NEGATIVE Urine Blood NEGATIVE Urine Nitrite NEGATIVE Ur Leukocyte Esterase LARGE H Urine WBC (Auto) 58 Urine RBC (Auto) 3 08/06/17 08/06/17 04:55 04:55 Creatine Kinase 84 CK-MB (CK-2) 1.17 Troponin I 0.055 Impressions: Chest X-Ray 08/05/17 20:02 IMPRESSION: NO ACUTE RADIOGRAPHIC FINDING IN THE CHEST. Chest/Abdomen CTA 08/05/17 20:45 IMPRESSION: Acute pulmonary emboli right lung. New mass at the right base suspicious metastatic disease. Left basilar mass is stable. Ascites hepatic metastases. Paracentesis Ultrasound 08/07/17 00:00 IMPRESSION: Successful ultrasound-guided paracentesis Acute Abdomen Series 08/09/17 00:00 IMPRESSION: DILATED SMALL BOWEL LOOPS CENTRALLY WITH AIR-FLUID LEVELS. DIFFERENTIAL INCLUDES SMALL BOWEL OBSTRUCTION OR ILEUS. Assessment & Plan - Diagnosis (1) Thrombocytopenia Is this a current diagnosis for this admission?: Yes Plan: Hold anticoagulation. Continue to monitor. (2) Ascites Qualifiers: Ascites type: malignant Qualified Code(s): R18.0 - Malignant ascites Is this a current diagnosis for this admission?: Yes Plan: Continue current plan. Paracentesis as needed. (3) Ovarian cancer Qualifiers: Laterality: right Qualified Code(s): C56.1 - Malignant neoplasm of right ovary; C56.0 - Malignant neoplasm of right ovary Is this a current diagnosis for this admission?: Yes Plan: Outpatient therapy per oncology. (4) Physical deconditioning Is this a current diagnosis for this admission?: Yes Plan: Rehab on discharge. (5) Small bowel obstruction Is this a current diagnosis for this admission?: No (6) Partial small bowel obstruction Is this a current diagnosis for this admission?: Yes Plan: Does not appear symptomatic at this time. Continue to monitor. Poor surgical candidate. - Time Time Spent with patient: 25-34 minutes Medications reviewed and adjusted accordingly: Yes Anticipated discharge: SNF Within: within 36 hours - Inpatient Certification Medical Necessity: Failure to Improve With Outpatient Therapy
[2017-08-12] MEDS: OXYCODONE HCL IR 5 MG TABLET PO PRN (22:10)
[2017-08-13 07:19] LABS: HEMATOCRIT 41.6 % (36.0-47.0); HEMOGLOBIN 13.5 g/dL (12.0-15.5); MEAN CORPUSCULAR HEMOGLOBIN 30.9 pg (27.0-33.4); MEAN CORPUSCULAR HGB CONC 32.6 g/dL (32.0-36.0); MEAN CORPUSCULAR VOLUME 95 fl (80-97); RED BLOOD COUNT 4.38 10^6/uL (3.72-5.28); RED CELL DISTRIBUTION WIDTH 20.9 % (11.5-14.0); WHITE BLOOD COUNT 18.5 10^3/uL (4.0-10.5)
--- NOTE | 2017-08-13 08:06 | PDOC PROGRESS REPORT ---
Subjective Progress Note for:: 08/13/17 Subjective:: No acute events overnight, had trouble sleeping, would like sleeping aid, having some pain R chest at times. Plt ct 33 K yesterday, today 29. Told pt that plan to watch this, if plt ct <20 plan transfusion of plt. Currently pt not actively bleeding Reason For Visit: THROMBOCYTOPENIA,AUTOIMMUNE HEPATITIS,ANASARCA Physical Exam Vital Signs: Temp Pulse Resp BP Pulse Ox 97.5 F 111 H 21 H 109/86 H 94 08/12/17 23:12 08/12/17 23:12 08/12/17 23:12 08/12/17 23:12 08/12/17 23:12 Intake & Output 08/12/17 08/13/17 08/14/17 06:59 06:59 06:59 Intake Total 4332 2230 Output Total 500 Balance 4332 1730 Weight 65.6 kg 72.4 kg General appearance: PRESENT: no acute distress, well-developed, well-nourished Head exam: PRESENT: atraumatic, normocephalic Eye exam: PRESENT: conjunctiva pink, EOMI, PERRLA. ABSENT: scleral icterus Ear exam: PRESENT: normal external ear exam Mouth exam: PRESENT: moist, tongue midline Neck exam: ABSENT: carotid bruit, JVD, lymphadenopathy, thyromegaly Respiratory exam: PRESENT: clear to auscultation sheila. ABSENT: rales, rhonchi, wheezes Cardiovascular exam: PRESENT: RRR. ABSENT: diastolic murmur, rubs, systolic murmur Pulses: PRESENT: normal dorsalis pedis pul Vascular exam: PRESENT: normal capillary refill GI/Abdominal exam: PRESENT: normal bowel sounds, soft. ABSENT: distended, guarding, mass, organolmegaly, rebound, tenderness Rectal exam: PRESENT: deferred Extremities exam: PRESENT: full ROM. ABSENT: calf tenderness, clubbing, pedal edema Neurological exam: PRESENT: alert, awake, oriented to person, oriented to place , oriented to time, oriented to situation, CN II-XII grossly intact. ABSENT: motor sensory deficit Psychiatric exam: PRESENT: appropriate affect, normal mood. ABSENT: homicidal ideation, suicidal ideation Skin exam: PRESENT: dry, intact, warm. ABSENT: cyanosis, rash Results Laboratory Results: 08/12/17 06:15 08/06/17 08/06/17 04:55 04:55 Creatine Kinase 84 CK-MB (CK-2) 1.17 Troponin I 0.055 Impressions: Chest X-Ray 08/05/17 20:02 IMPRESSION: NO ACUTE RADIOGRAPHIC FINDING IN THE CHEST. Chest/Abdomen CTA 08/05/17 20:45 IMPRESSION: Acute pulmonary emboli right lung. New mass at the right base suspicious metastatic disease. Left basilar mass is stable. Ascites hepatic metastases. Paracentesis Ultrasound 08/07/17 00:00 IMPRESSION: Successful ultrasound-guided paracentesis Acute Abdomen Series 08/09/17 00:00 IMPRESSION: DILATED SMALL BOWEL LOOPS CENTRALLY WITH AIR-FLUID LEVELS. DIFFERENTIAL INCLUDES SMALL BOWEL OBSTRUCTION OR ILEUS. Assessment & Plan - Diagnosis (1) Pulmonary embolism Qualifiers: Pulmonary embolism type: other Chronicity: acute Acute cor pulmonale presence: without acute cor pulmonale Qualified Code(s): I26.99 - Other pulmonary embolism without acute cor pulmonale Is this a current diagnosis for this admission?: Yes Plan: Hold anticoag 2nd to low plt (2) Ovarian cancer Qualifiers: Laterality: right Qualified Code(s): C56.1 - Malignant neoplasm of right ovary; C56.0 - Malignant neoplasm of right ovary Is this a current diagnosis for this admission?: Yes Plan: Was planning further rx as oupt but don't know if pt ultimately will be strong enough. Discussed code status, began discussions on hospice but pt not ready, so con't current care at present (3) Abdominal pain Qualifiers: Abdominal location: right upper quadrant Qualified Code(s): R10.11 - Right upper quadrant pain Is this a current diagnosis for this admission?: Yes Plan: some inc in pain, distention 2nd ascitis, will probably need paracentesis again soon but now plt ct <50 so can't do that at present w/out giving plt transfusion , con't oxycodone for pain (4) Physical deconditioning Is this a current diagnosis for this admission?: Yes Plan: Cont PT, hopeful transition to rehab
[2017-08-13] MEDS ORDERED: NORMAL SALINE 1000 ML 1,000 ML IV PRN ×2 (08:38→12:30)
[2017-08-13] MEDS ORDERED: DOPAMINE HCL/DEXTROSE 5%-WATER 800 MG/250 ML RTUINJ IV PRN (08:39)
[2017-08-13] MEDS ORDERED: ALBUMIN HUMAN 50 ML IV SCH (08:40)
[2017-08-13] MEDS ORDERED: TRAZODONE HCL 50 MG TABLET PO PRN (08:42)
--- NOTE | 2017-08-13 08:46 | PDOC PROGRESS REPORT ---
Subjective Progress Note for:: 08/13/17 Subjective:: CHARITY DESIR is a 51 year old female patient of Dr. Patel with a past medical history of stage IV ovarian cancer with widespread metastases and recurrent ascites. She presents after 2 days of increasing shortness of breath and worsening abdominal distention prompting her to seek evaluation emergency room where she has a therapeutic bedside paracentesis performed removing 1.6 L. She remained tachycardic prompting a CTA chest revealing multiple acute right- sided pulmonary emboli. She started on heparin and referred to the hospitalist for admission. Her oncologist Dr. Patel was consulted. He ordered lower extremity Dopplers. She has bilateral lower extremity DVTs. She underwent a second paracentesis 2 days following admission. This time, 5700 cc was removed. Following the procedure, she was started on Lovenox, instead of IV heparin with plans to discharge her home with subcu Lovenox. However, she continued to be very weak and deconditioned. With that in mind, rehabilitation was offered, which she agreed to. On August 09, she developed abdominal discomfort. Abdominal x-ray was obtained showing partial small bowel obstruction. Around this time, her platelet count starting to trend downward. Ultimately, anticoagulation was discontinued because her platelet count dropped below 50,000. She remains deconditioned. Aug 12: I approached her about her CODE STATUS. She did not want to discuss it. Aug 13: no complaints. BP low this morning. Mentation is normal. I discussed prognosis with son Tong by phone. He does not particularly want her to be a full code. He is realistic about her poor prognosis. However, he wants to discuss it first with his mother as well as other brother. Reason For Visit: THROMBOCYTOPENIA,AUTOIMMUNE HEPATITIS,ANASARCA Physical Exam Vital Signs: Temp Pulse Resp BP Pulse Ox 97.5 F 111 H 17 49/32 L 93 08/13/17 08:04 08/13/17 08:04 08/13/17 08:04 08/13/17 08:04 08/13/17 08:04 Intake & Output 08/12/17 08/13/17 08/14/17 06:59 06:59 06:59 Intake Total 4332 2230 Output Total 500 Balance 4332 1730 Weight 65.6 kg 72.4 kg General appearance: PRESENT: no acute distress, thin Mouth exam: PRESENT: dry mucosa Respiratory exam: PRESENT: clear to auscultation sheila, unlabored Cardiovascular exam: PRESENT: tachycardia Pulses: PRESENT: +1 pedal pulses bilateral GI/Abdominal exam: PRESENT: ascites, diminished bowel sounds, distended, soft. ABSENT: tenderness Neurological exam: PRESENT: alert, awake, oriented to person, oriented to place , oriented to time, oriented to situation Psychiatric exam: PRESENT: appropriate affect, normal mood. ABSENT: homicidal ideation, suicidal ideation Results Laboratory Results: 08/12/17 06:15 08/06/17 08/06/17 04:55 04:55 Creatine Kinase 84 CK-MB (CK-2) 1.17 Troponin I 0.055 Impressions: Chest X-Ray 08/05/17 20:02 IMPRESSION: NO ACUTE RADIOGRAPHIC FINDING IN THE CHEST. Chest/Abdomen CTA 08/05/17 20:45 IMPRESSION: Acute pulmonary emboli right lung. New mass at the right base suspicious metastatic disease. Left basilar mass is stable. Ascites hepatic metastases. Paracentesis Ultrasound 08/07/17 00:00 IMPRESSION: Successful ultrasound-guided paracentesis Acute Abdomen Series 08/09/17 00:00 IMPRESSION: DILATED SMALL BOWEL LOOPS CENTRALLY WITH AIR-FLUID LEVELS. DIFFERENTIAL INCLUDES SMALL BOWEL OBSTRUCTION OR ILEUS. Assessment & Plan - Diagnosis (1) Thrombocytopenia Is this a current diagnosis for this admission?: Yes Plan: Hold anticoagulation. Continue to monitor. She is not bleeding. No platelet transfusion unless she drops less than 20K (2) Ascites Qualifiers: Ascites type: malignant Qualified Code(s): R18.0 - Malignant ascites Is this a current diagnosis for this admission?: Yes Plan: Continue current plan. Paracentesis as needed. (3) Ovarian cancer Qualifiers: Laterality: right Qualified Code(s): C56.1 - Malignant neoplasm of right ovary; C56.0 - Malignant neoplasm of right ovary Is this a current diagnosis for this admission?: Yes Plan: Outpatient therapy per oncology. I will continue to bring up CODE STATUS with her and her son. He will come today after work to discuss it with her. (4) Physical deconditioning Is this a current diagnosis for this admission?: Yes Plan: Rehab on discharge. (5) Small bowel obstruction Is this a current diagnosis for this admission?: No (6) Partial small bowel obstruction Is this a current diagnosis for this admission?: Yes Plan: Does not appear symptomatic at this time. Continue to monitor. Poor surgical candidate. (7) Hypotension Qualifiers: Hypotension type: unspecified hypotension type Qualified Code(s): I95.9 - Hypotension, unspecified Is this a current diagnosis for this admission?: Yes Plan: Likely due to intravascular volume depletion. She is clearly "third spacing". She needs to be moved to a higher level of care. I have talked with the ICU. They are short on beds. In the meantime, I will give her a bolus of normal saline along with starting a dopamine drip at low dose, along with albumin IV. - Time Time Spent with patient: 25-34 minutes Medications reviewed and adjusted accordingly: Yes Anticipated discharge: Other - Inpatient Certification Medical Necessity: Failure to Improve With Outpatient Therapy, Significant Comorbidiites Make Outpatient Treatment Too Risky, Need Close Monitoring Due to Risk of Patient Decompensation, Need For IV Fluids
[2017-08-13 08:51] LABS: PLATELET COUNT 29 10^3/uL (150-450)
[2017-08-13] MEDS: METOCLOPRAMIDE HCL INJ/PF 10 MG/2 ML SDV IV SCH ×4 (09:41→21:04)
[2017-08-13] MEDS: ALBUMIN HUMAN 50 ML IV SCH ×8 (10:00→20:58)
[2017-08-13] MEDS: DOCUSATE SODIUM 100 MG CAPSULE PO SCH ×2 (10:57→17:38)
[2017-08-13] MEDS: FAMOTIDINE 20 MG TABLET PO SCH (10:57)
[2017-08-13] MEDS ORDERED: NORMAL SALINE 1000 ML 1,000 ML IV ONE (11:30)
[2017-08-13 11:39] LABS: PATH REVIEW PATHOLOGIST REVIEWED
[2017-08-13] MEDS ORDERED: OXYCODONE HCL IR 5 MG TABLET PO PRN (14:07)
[2017-08-13] MEDS: OXYCODONE HCL IR 5 MG TABLET PO PRN (14:27)
[2017-08-14] MEDS: OXYCODONE HCL IR 5 MG TABLET PO PRN ×2 (03:07→18:30)
[2017-08-14 04:55] LABS: HEMATOCRIT 32.2 % (36.0-47.0); MEAN CORPUSCULAR HEMOGLOBIN 31.1 pg (27.0-33.4); MEAN CORPUSCULAR HGB CONC 32.7 g/dL (32.0-36.0); MEAN CORPUSCULAR VOLUME 95 fl (80-97); RED BLOOD COUNT 3.39 10^6/uL (3.72-5.28); RED CELL DISTRIBUTION WIDTH 21.8 % (11.5-14.0); WHITE BLOOD COUNT 14.4 10^3/uL (4.0-10.5)
[2017-08-14 04:58] LABS: ANION GAP 14 (5-19); BLOOD UREA NITROGEN 28 mg/dL (7-20); CALCIUM 7.9 mg/dL (8.4-10.2); CARBON DIOXIDE 13 mmol/L (22-30); CHLORIDE 120 mmol/L (98-107); GLUCOSE 79 mg/dL (75-110); POTASSIUM 4.1 mmol/L (3.6-5.0); SODIUM 146.5 mmol/L (137-145)
[2017-08-14 05:05] LABS: PROTHROMBIN TIME 23.8 SEC (11.4-15.4)
[2017-08-14 05:25] LABS: ABSOLUTE LYMPHOCYTES# (MANUAL) 0.9 10^3/uL (0.5-4.7); ABSOLUTE MONOCYTES # (MANUAL) 0.6 10^3/uL (0.1-1.4); BAND NEUTROPHILS % (MANUAL) 4 % (3-5); BASOPHILS % (MANUAL) 0 % (0-2); EOSINOPHILS % (MANUAL) 0 % (0-6); LYMPHOCYTES % (MANUAL) 6 % (13-45); MONOCYTES % (MANUAL) 4 % (3-13); SEGMENTED NEUTROPHILS % (MAN) 86 % (42-78); TOTAL CELLS COUNTED 100
[2017-08-14 05:29] LABS: OVALOCYTES SLIGHT; POIKILOCYTOSIS SLIGHT; POLYCHROMASIA SLIGHT; SCHISTOCYTES SLIGHT; TEAR DROP CELLS SLIGHT; TOXIC GRANULATION 1+
[2017-08-14 05:35] LABS: PLATELET COMMENT DECREASED
[2017-08-14 05:36] LABS: HEMOGLOBIN 10.5 g/dL (12.0-15.5)
[2017-08-14 05:41] LABS: PLATELET COUNT 31 10^3/uL (150-450)
[2017-08-14 08:12] LABS: APPEARANCE,URINE SLIGHTLY-CLOUDY; BILIRUBIN,URINE NEGATIVE (NEGATIVE); COLOR,URINE AMBER; GLUCOSE, URINE NEGATIVE (NEGATIVE); KETONES,URINE NEGATIVE (NEGATIVE); LEUKOCYTE ESTERASE,URINE NEGATIVE (NEGATIVE); NITRITE,URINE NEGATIVE (NEGATIVE); PROTEIN,URINE 30 mg/dL (NEGATIVE); URINE SPECIFIC GRAVITY 1.018
--- NOTE | 2017-08-14 08:30 | PDOC PROGRESS REPORT ---
Subjective Progress Note for:: 08/14/17 Subjective:: Pt seems much worse this am, poor mentation, vitals are stable currently however. Today had long discussion w/ Guillermo, her ex who is now her medical power of safety investigator/cause analyst, ph [phone]. Discussed poor prognosis, discussed hospice, he is agreeable but concerned about her home situation, so I let him know social work will be contacting him today. Spent >45 min in discussion and coordination of care. They would prefer facility but let them know this would be difficult given fact we are going towards hospice. discussed hospice house such as [facility] or [facility], they seem interested in this possibility. Reason For Visit: THROMBOCYTOPENIA,AUTOIMMUNE HEPATITIS,ANASARCA Physical Exam Vital Signs: Temp Pulse Resp BP Pulse Ox 97.6 F 79 20 116/75 97 08/14/17 03:50 08/14/17 07:00 08/14/17 03:50 08/14/17 03:50 08/14/17 03:50 Intake & Output 08/13/17 08/14/17 08/15/17 06:59 06:59 06:59 Intake Total 2230 1552 Output Total 500 450 Balance 1730 1102 Weight 72.4 kg 72.7 kg General appearance: PRESENT: disheveled, other - less responsive Mouth exam: PRESENT: dry mucosa Teeth exam: PRESENT: poor dentation Respiratory exam: PRESENT: accessory muscle use Cardiovascular exam: PRESENT: irregular rhythm GI/Abdominal exam: PRESENT: ascites, distended Rectal exam: PRESENT: deferred Neurological exam: PRESENT: altered Skin exam: PRESENT: cyanosis Results Laboratory Results: 08/14/17 04:30 08/14/17 04:30 08/13/17 08/14/17 08/14/17 05:00 04:30 04:30 WBC 18.5 H 14.4 H RBC 4.38 3.39 L Hgb 13.5 10.5 L D Hct 41.6 32.2 L MCV 95 95 MCH 30.9 31.1 MCHC 32.6 32.7 RDW 20.9 H 21.8 H Plt Count 29 L* 31 L Seg Neutrophils % Not Reportable Lymphocytes % Not Reportable Monocytes % Not Reportable Eosinophils % Not Reportable Basophils % Not Reportable Absolute Neutrophils Not Reportable Absolute Lymphocytes Not Reportable Absolute Monocytes Not Reportable Absolute Eosinophils Not Reportable Absolute Basophils Not Reportable Sodium 146.5 H Potassium 4.1 Chloride 120 H Carbon Dioxide 13 L Anion Gap 14 BUN 28 H Creatinine 1.29 H Est GFR ( Amer) 52 L Est GFR (Non-Af Amer) 43 L Glucose 79 Calcium 7.9 L Urine Color Urine Appearance Urine pH Ur Specific [place] Urine Protein Urine Glucose (UA) Urine Ketones Urine Blood Urine Nitrite Ur Leukocyte Esterase Urine WBC (Auto) 08/14/17 06:30 WBC RBC Hgb Hct MCV MCH MCHC RDW Plt Count Seg Neutrophils % Lymphocytes % Monocytes % Eosinophils % Basophils % Absolute Neutrophils Absolute Lymphocytes Absolute Monocytes Absolute Eosinophils Absolute Basophils Sodium Potassium Chloride Carbon Dioxide Anion Gap BUN Creatinine Est GFR ( Amer) Est GFR (Non-Af Amer) Glucose Calcium Urine Color LALY Urine Appearance SLIGHTLY-CLOUDY Urine pH 5.0 Ur Specific [place] 1.018 Urine Protein 30 H Urine Glucose (UA) NEGATIVE Urine Ketones NEGATIVE Urine Blood NEGATIVE Urine Nitrite NEGATIVE Ur Leukocyte Esterase NEGATIVE Urine WBC (Auto) 1 08/06/17 08/06/17 04:55 04:55 Creatine Kinase 84 CK-MB (CK-2) 1.17 Troponin I 0.055 Impressions: Chest X-Ray 08/05/17 20:02 IMPRESSION: NO ACUTE RADIOGRAPHIC FINDING IN THE CHEST. Chest/Abdomen CTA 08/05/17 20:45 IMPRESSION: Acute pulmonary emboli right lung. New mass at the right base suspicious metastatic disease. Left basilar mass is stable. Ascites hepatic metastases. Paracentesis Ultrasound 08/07/17 00:00 IMPRESSION: Successful ultrasound-guided paracentesis Acute Abdomen Series 08/09/17 00:00 IMPRESSION: DILATED SMALL BOWEL LOOPS CENTRALLY WITH AIR-FLUID LEVELS. DIFFERENTIAL INCLUDES SMALL BOWEL OBSTRUCTION OR ILEUS. Assessment & Plan - Diagnosis (1) Pulmonary embolism Qualifiers: Pulmonary embolism type: other Chronicity: acute Acute cor pulmonale presence: without acute cor pulmonale Qualified Code(s): I26.99 - Other pulmonary embolism without acute cor pulmonale Is this a current diagnosis for this admission?: Yes Plan: cont to hold anticoag (2) Ovarian cancer Qualifiers: Laterality: right Qualified Code(s): C56.1 - Malignant neoplasm of right ovary; C56.0 - Malignant neoplasm of right ovary Is this a current diagnosis for this admission?: Yes Plan: No further rx planned, discussed comfort care. pt and family want to go towards this, working on hospice now. (3) Abdominal pain Qualifiers: Abdominal location: right upper quadrant Qualified Code(s): R10.11 - Right upper quadrant pain Is this a current diagnosis for this admission?: Yes Plan: Not present currently but she does have, oxy so far on board (4) Physical deconditioning Is this a current diagnosis for this admission?: Yes Plan: Will not consider rehab any longer, needs hospice but thru facility or thru hospice house. - Time Time Spent with patient: 35 or more minutes Anticipated discharge: Hospice
[2017-08-14] MEDS: METOCLOPRAMIDE HCL INJ/PF 10 MG/2 ML SDV IV SCH ×4 (08:49→22:37)
[2017-08-14] MEDS: FAMOTIDINE 20 MG TABLET PO SCH (11:37)
[2017-08-14] MEDS: DOCUSATE SODIUM 100 MG CAPSULE PO SCH ×2 (11:37→17:58)
--- NOTE | 2017-08-14 14:09 | PDOC PROGRESS REPORT ---
Subjective Progress Note for:: 08/14/17 Subjective:: CHARITY DESIR is a 51 year old female patient of Dr. Patel with a past medical history of stage IV ovarian cancer with widespread metastases and recurrent ascites. She presents after 2 days of increasing shortness of breath and worsening abdominal distention prompting her to seek evaluation emergency room where she has a therapeutic bedside paracentesis performed removing 1.6 L. She remained tachycardic prompting a CTA chest revealing multiple acute right- sided pulmonary emboli. She started on heparin and referred to the hospitalist for admission. Her oncologist Dr. Patel was consulted. He ordered lower extremity Dopplers. She has bilateral lower extremity DVTs. She underwent a second paracentesis 2 days following admission. This time, 5700 cc was removed. Following the procedure, she was started on Lovenox, instead of IV heparin with plans to discharge her home with subcu Lovenox. However, she continued to be very weak and deconditioned. With that in mind, rehabilitation was offered, which she agreed to. On August 09, she developed abdominal discomfort. Abdominal x-ray was obtained showing partial small bowel obstruction. Around this time, her platelet count starting to trend downward. Ultimately, anticoagulation was discontinued because her platelet count dropped below 50,000. She remains deconditioned. Aug 12: I approached her about her CODE STATUS. She did not want to discuss it. Aug 13: no complaints. BP low this morning. Mentation is normal. I discussed prognosis with son Tong by phone. He does not particularly want her to be a full code. He is realistic about her poor prognosis. However, he wants to discuss it first with his mother as well as other brother. August 14 No new changes. I discussed the case with . He discussed the case with the patient's ex- who is now her POA. The patient is now DNR. Reason For Visit: THROMBOCYTOPENIA,AUTOIMMUNE HEPATITIS,ANASARCA Physical Exam Vital Signs: Temp Pulse Resp BP Pulse Ox 97.3 F 102 H 17 96/48 L 97 08/14/17 12:26 08/14/17 12:26 08/14/17 12:26 08/14/17 12:26 08/14/17 12:26 Intake & Output 08/13/17 08/14/17 08/15/17 06:59 06:59 06:59 Intake Total 2230 1552 0 Output Total 500 450 100 Balance 1730 1102 -100 Weight 72.4 kg 72.7 kg General appearance: PRESENT: no acute distress, thin Eye exam: PRESENT: EOMI, PERRLA Mouth exam: PRESENT: dry mucosa Respiratory exam: PRESENT: clear to auscultation sheila. ABSENT: rales, rhonchi, wheezes Cardiovascular exam: PRESENT: RRR. ABSENT: diastolic murmur, rubs, systolic murmur GI/Abdominal exam: PRESENT: ascites, diminished bowel sounds, distended, firm. ABSENT: tenderness Neurological exam: PRESENT: alert, awake, oriented to person, CN II-XII grossly intact Psychiatric exam: ABSENT: agitated, anxious Skin exam: PRESENT: pallor Results Laboratory Results: 08/14/17 04:30 08/14/17 04:30 08/14/17 08/14/17 08/14/17 04:30 04:30 06:30 WBC 14.4 H RBC 3.39 L Hgb 10.5 L D Hct 32.2 L MCV 95 MCH 31.1 MCHC 32.7 RDW 21.8 H Plt Count 31 L Seg Neutrophils % Not Reportable Lymphocytes % Not Reportable Monocytes % Not Reportable Eosinophils % Not Reportable Basophils % Not Reportable Absolute Neutrophils Not Reportable Absolute Lymphocytes Not Reportable Absolute Monocytes Not Reportable Absolute Eosinophils Not Reportable Absolute Basophils Not Reportable Sodium 146.5 H Potassium 4.1 Chloride 120 H Carbon Dioxide 13 L Anion Gap 14 BUN 28 H Creatinine 1.29 H Est GFR ( Amer) 52 L Est GFR (Non-Af Amer) 43 L Glucose 79 Calcium 7.9 L Urine Color LALY Urine Appearance SLIGHTLY-CLOUDY Urine pH 5.0 Ur Specific [place] 1.018 Urine Protein 30 H Urine Glucose (UA) NEGATIVE Urine Ketones NEGATIVE Urine Blood NEGATIVE Urine Nitrite NEGATIVE Ur Leukocyte Esterase NEGATIVE Urine WBC (Auto) 1 08/06/17 08/06/17 04:55 04:55 Creatine Kinase 84 CK-MB (CK-2) 1.17 Troponin I 0.055 Impressions: Chest X-Ray 08/05/17 20:02 IMPRESSION: NO ACUTE RADIOGRAPHIC FINDING IN THE CHEST. Chest/Abdomen CTA 08/05/17 20:45 IMPRESSION: Acute pulmonary emboli right lung. New mass at the right base suspicious metastatic disease. Left basilar mass is stable. Ascites hepatic metastases. Paracentesis Ultrasound 08/07/17 00:00 IMPRESSION: Successful ultrasound-guided paracentesis Acute Abdomen Series 08/09/17 00:00 IMPRESSION: DILATED SMALL BOWEL LOOPS CENTRALLY WITH AIR-FLUID LEVELS. DIFFERENTIAL INCLUDES SMALL BOWEL OBSTRUCTION OR ILEUS. Assessment & Plan - Diagnosis (1) Thrombocytopenia Is this a current diagnosis for this admission?: Yes Plan: Hold anticoagulation. I do not see the utility of continuing to check her platelets given her very poor prognosis. I will cancel daily lab draws. (2) Ascites Qualifiers: Ascites type: malignant Qualified Code(s): R18.0 - Malignant ascites Is this a current diagnosis for this admission?: Yes Plan: Continue current plan. Paracentesis as needed. (3) Ovarian cancer Qualifiers: Laterality: right Qualified Code(s): C56.1 - Malignant neoplasm of right ovary; C56.0 - Malignant neoplasm of right ovary Is this a current diagnosis for this admission?: Yes Plan: Now that she is DNR, and her clinical addition continues to deteriorate, she would benefit from hospice. Unfortunately, she would not be able to go to a skilled facility with it. At this point she cannot return home due to poor social situation. Continue inpatient care for now. She will most likely need fci placement. (4) Physical deconditioning Is this a current diagnosis for this admission?: Yes Plan: Continue physical therapy as tolerated (5) Small bowel obstruction Is this a current diagnosis for this admission?: No (6) Partial small bowel obstruction Is this a current diagnosis for this admission?: Yes Plan: Does not appear symptomatic at this time. Continue to monitor. Poor surgical candidate. (7) Hypotension Qualifiers: Hypotension type: unspecified hypotension type Qualified Code(s): I95.9 - Hypotension, unspecified Is this a current diagnosis for this admission?: Yes Plan: Likely due to intravascular volume depletion. She is clearly "third spacing". Discontinue IV fluids. - Time Time Spent with patient: 15-24 minutes Medications reviewed and adjusted accordingly: Yes Anticipated discharge: SNF - Inpatient Certification Based on my medical assessment, after consideration of the patient's comorbidities, presenting symptoms, or acuity I expect that the services needed warrant INPATIENT care.: Yes I certify that my determination is in accordance with my understanding of Medicare's requirements for reasonable and necessary INPATIENT services [42 CFR 412.3e].: Yes Medical Necessity: Failure to Improve With Outpatient Therapy, Significant Comorbidiites Make Outpatient Treatment Too Risky
--- NOTE | 2017-08-14 19:05 | PDOC DISCHARGE SUMMARY ---
General - Admit/Disc Date/PCP Admission Date/Primary Care Provider: 08/05/17 23:39 Discharge Date: 08/15/17 - Discharge Diagnosis (1) Thrombocytopenia Is this a current diagnosis for this admission?: Yes (2) Ascites Is this a current diagnosis for this admission?: Yes (3) Ovarian cancer Is this a current diagnosis for this admission?: Yes (4) Physical deconditioning Is this a current diagnosis for this admission?: Yes (5) Small bowel obstruction Is this a current diagnosis for this admission?: No (6) Partial small bowel obstruction Is this a current diagnosis for this admission?: Yes (7) Hypotension Is this a current diagnosis for this admission?: Yes - Additional Information Resuscitation Status: Full Code Discharge Diet: As Tolerated Discharge Activity: Activity As Tolerated Home Medications: Oxycodone HCl [Oxy-Ir 5 mg Tablet] 10 mg PO Q6HP PRN tablet 08/14/17 History of Present Illness History of Present Illness: CHARITY DESIR is a 51 year old female patient of Dr. Patel with a past medical history of stage IV ovarian cancer with widespread metastases and recurrent ascites. She presents after 2 days of increasing shortness of breath and worsening abdominal distention prompting her to seek evaluation emergency room where she has a therapeutic bedside paracentesis performed removing 1.6 L. She remained tachycardic prompting a CTA chest revealing multiple acute right- sided pulmonary emboli. She started on heparin and referred to the hospitalist for admission. Hospital Course Hospital Course: Her oncologist Dr. Patel was consulted. He ordered lower extremity Dopplers. She has bilateral lower extremity DVTs. She underwent a second paracentesis 2 days following admission. This time, 5700 cc was removed. Following the procedure, she was started on Lovenox, instead of IV heparin with plans to discharge her home with subcu Lovenox. However, she continued to be very weak and deconditioned. With that in mind, rehabilitation was offered, which she agreed to. On August 09, she developed abdominal discomfort. Abdominal x-ray was obtained showing partial small bowel obstruction. Around this time, her platelet count starting to trend downward. Ultimately, anticoagulation was discontinued because her platelet count dropped below 50,000. She remains deconditioned. Aug 12: I approached her about her CODE STATUS. She did not want to discuss it. Aug 13: no complaints. BP low this morning. Mentation is normal. I discussed prognosis with son Tong by phone. He does not particularly want her to be a full code. He is realistic about her poor prognosis. However, he wants to discuss it first with his mother as well as other brother. August 14 No new changes. I discussed the case with . He discussed the case with the patient's ex- who is now her POA. The patient is now DNR. The plan is to 60 discharge her home with hospice in a.m. August 15. Physical Exam Vital Signs: Temp Pulse Resp BP Pulse Ox 98.4 F 52 L 18 104/89 H 97 08/14/17 15:53 08/14/17 15:53 08/14/17 15:53 08/14/17 15:53 08/14/17 15:53 Intake & Output 08/13/17 08/14/17 08/15/17 06:59 06:59 06:59 Intake Total 2230 1552 1030 Output Total 500 450 200 Balance 1730 1102 830 Weight 72.4 kg 72.7 kg General appearance: PRESENT: no acute distress, thin Mouth exam: PRESENT: dry mucosa Respiratory exam: PRESENT: clear to auscultation sheila. ABSENT: rales, rhonchi, wheezes Cardiovascular exam: PRESENT: RRR. ABSENT: diastolic murmur, rubs, systolic murmur GI/Abdominal exam: PRESENT: ascites, distended, firm. ABSENT: tenderness Neurological exam: PRESENT: alert Skin exam: PRESENT: pallor Results Laboratory Results: 08/14/17 04:30 08/14/17 04:30 08/14/17 08/14/17 08/14/17 04:30 04:30 06:30 WBC 14.4 H RBC 3.39 L Hgb 10.5 L D Hct 32.2 L MCV 95 MCH 31.1 MCHC 32.7 RDW 21.8 H Plt Count 31 L Seg Neutrophils % Not Reportable Lymphocytes % Not Reportable Monocytes % Not Reportable Eosinophils % Not Reportable Basophils % Not Reportable Absolute Neutrophils Not Reportable Absolute Lymphocytes Not Reportable Absolute Monocytes Not Reportable Absolute Eosinophils Not Reportable Absolute Basophils Not Reportable Sodium 146.5 H Potassium 4.1 Chloride 120 H Carbon Dioxide 13 L Anion Gap 14 BUN 28 H Creatinine 1.29 H Est GFR ( Amer) 52 L Est GFR (Non-Af Amer) 43 L Glucose 79 Calcium 7.9 L Urine Color LALY Urine Appearance SLIGHTLY-CLOUDY Urine pH 5.0 Ur Specific [place] 1.018 Urine Protein 30 H Urine Glucose (UA) NEGATIVE Urine Ketones NEGATIVE Urine Blood NEGATIVE Urine Nitrite NEGATIVE Ur Leukocyte Esterase NEGATIVE Urine WBC (Auto) 1 08/06/17 08/06/17 04:55 04:55 Creatine Kinase 84 CK-MB (CK-2) 1.17 Troponin I 0.055 Impressions: Chest X-Ray 08/05/17 20:02 IMPRESSION: NO ACUTE RADIOGRAPHIC FINDING IN THE CHEST. Chest/Abdomen CTA 08/05/17 20:45 IMPRESSION: Acute pulmonary emboli right lung. New mass at the right base suspicious metastatic disease. Left basilar mass is stable. Ascites hepatic metastases. Paracentesis Ultrasound 08/07/17 00:00 IMPRESSION: Successful ultrasound-guided paracentesis Acute Abdomen Series 08/09/17 00:00 IMPRESSION: DILATED SMALL BOWEL LOOPS CENTRALLY WITH AIR-FLUID LEVELS. DIFFERENTIAL INCLUDES SMALL BOWEL OBSTRUCTION OR ILEUS. Qualifiers - * PATEINT BEING DISCHARGED WITH ANY OF THE FOLLOWING DIAGNOSIS?: No VTE patient discharged on overlapping Therapy?: Yes Plan Discharge Plan: Home with hospice Time Spent: Greater than 30 Minutes - 35 minutes
[2017-08-15] MEDS: METOCLOPRAMIDE HCL INJ/PF 10 MG/2 ML SDV IV SCH ×2 (08:07→12:11)
[2017-08-15] MEDS: DOCUSATE SODIUM 100 MG CAPSULE PO SCH (10:03)
[2017-08-15] MEDS: FAMOTIDINE 20 MG TABLET PO SCH (10:03)
--- NOTE | 2017-08-15 10:24 | PDOC PROGRESS REPORT ---
Subjective Progress Note for:: 08/15/17 Subjective:: The patient is being discharged to home hospice today. The patient has metastatic ovarian cancer. Today, the has requested a dietary consult. This has been ordered. Reason For Visit: THROMBOCYTOPENIA,AUTOIMMUNE HEPATITIS,ANASARCA Physical Exam Vital Signs: Temp Pulse Resp BP Pulse Ox 98.1 F 102 H 15 98/80 L 91 L 08/15/17 08:00 08/15/17 08:00 08/15/17 08:00 08/15/17 08:00 08/15/17 08:00 Intake & Output 08/14/17 08/15/17 08/16/17 06:59 06:59 06:59 Intake Total 1552 2455 Output Total 450 650 Balance 1102 1805 Weight 72.7 kg 74 kg Additional comments: The patient is lying in bed. She is slightly jaundiced. She is awake and able to tell me her name. Her lungs are diminished in the bases but otherwise clear to auscultation bilaterally. Her cardiac exam is regular without murmurs, gallops rubs. The abdomen is distended but I did not appreciate a fluid wave. The patient does have mild lower extremity edema at 1+. Results Laboratory Results: 08/14/17 04:30 08/14/17 04:30 08/06/17 08/06/17 04:55 04:55 Creatine Kinase 84 CK-MB (CK-2) 1.17 Troponin I 0.055 Impressions: Chest X-Ray 08/05/17 20:02 IMPRESSION: NO ACUTE RADIOGRAPHIC FINDING IN THE CHEST. Chest/Abdomen CTA 08/05/17 20:45 IMPRESSION: Acute pulmonary emboli right lung. New mass at the right base suspicious metastatic disease. Left basilar mass is stable. Ascites hepatic metastases. Paracentesis Ultrasound 08/07/17 00:00 IMPRESSION: Successful ultrasound-guided paracentesis Acute Abdomen Series 08/09/17 00:00 IMPRESSION: DILATED SMALL BOWEL LOOPS CENTRALLY WITH AIR-FLUID LEVELS. DIFFERENTIAL INCLUDES SMALL BOWEL OBSTRUCTION OR ILEUS. Assessment & Plan - Diagnosis (1) Ascites Qualifiers: Ascites type: malignant Qualified Code(s): R18.0 - Malignant ascites Is this a current diagnosis for this admission?: Yes (2) Hypotension Qualifiers: Hypotension type: unspecified hypotension type Qualified Code(s): I95.9 - Hypotension, unspecified Is this a current diagnosis for this admission?: Yes (3) Ovarian cancer Qualifiers: Laterality: right Qualified Code(s): C56.1 - Malignant neoplasm of right ovary; C56.0 - Malignant neoplasm of right ovary Is this a current diagnosis for this admission?: Yes (4) Physical deconditioning Is this a current diagnosis for this admission?: Yes (5) Small bowel obstruction Is this a current diagnosis for this admission?: No (6) Thrombocytopenia Is this a current diagnosis for this admission?: Yes - Time Time Spent with patient: 15-24 minutes - Plan Summary Plan Summary: The patient will be transitioned to home today on hospice.
[2017-08-15] MEDS: OXYCODONE HCL IR 5 MG TABLET PO PRN (12:11)
[2017-08-15 16:11] VITALS: BP 92/64
== END 2017-08-15 16:21 | disposition hospice, home (50) | DRG 754 ==
LOC: ER 17:40 → EH 23:39 → 5 08-06 14:39 → 3W 08-13 14:53
PROVIDERS: ADMIT Internal Medicine; ATTEND Internal Medicine
PROC: 0W9G3ZZ Drainage of Peritoneal Cavity, Percutaneous Approach (ICD-10-PCS; principal; 2017-08-05)
PROC: 0W9G3ZZ Drainage of Peritoneal Cavity, Percutaneous Approach (ICD-10-PCS; 2017-08-07)
DX: C56.1 Malignant neoplasm of right ovary (principal); I26.99 Other pulmonary embolism without acute cor pulmonale; R18.0 Malignant ascites; Z66 Do not resuscitate; I82.4Z3 Acute embolism and thrombosis of unspecified deep veins of distal lower extremity, bilateral; N17.9 Acute kidney failure, unspecified; C78.7 Secondary malignant neoplasm of liver and intrahepatic bile duct; C79.9 Secondary malignant neoplasm of unspecified site; E87.1 Hypo-osmolality and hyponatremia; K56.609 Unspecified intestinal obstruction, unspecified as to partial versus complete obstruction; D69.6 Thrombocytopenia, unspecified; K75.4 Autoimmune hepatitis; I95.9 Hypotension, unspecified; R63.0 Anorexia; R10.11 Right upper quadrant pain; Z68.28 Body mass index [BMI] 28.0-28.9, adult
CPT/HCPCS: 36415; 49083; 71045; 71275; 74022; 80048; 80053; 81001; 82550; 82553; 83690; 83735; 84484; 85025; 85027; 85384; 85610; 85730; 86022; 87070; 87075; 87205; 93970; 96374; 99291; J1170; J1644; J1650; J2405; J2765; J7030; J7040; P9047